=== PATIENT | male | born 1935 | race Caucasian/White ===

== ENCOUNTER 2016-08-23 20:20 | Inpatient (IN) | payer MEDICARE ==
[~2016-08-23] VITALS: Ht 177.8 cm; Wt 68.5 kg
--- NOTE | 2016-08-23 11:55 | NUR ---
PT RECEIVED FROM ER VIA [employer]. PT USES CANE TO AMBULATE. PT IS AWAKE AND ABLE TO MAKE NEED KNOWN. AT BEDSIDE. ORIENTED TO ROOM. V/S STABLE. NO SIGNS OF ACUTE DISTRESS. NO COMPLAINTS OF PAIN. SAFETY MEASURE INITIATED. FALL PRECAUTIONS IMPLEMENTED. CALL LIGHT WITHIN REACH. WILL CONTINUE TO MONITOR. Addendum: 08/24/16 at 0401 by JEN KING RN PLEASE DISREGARD ABOVE NOTES. WRONG TIME ENTERED.
[~2016-08-23 20:20] MED LIST: CARV12.52 PO; DABI75CA3 PO; LISI-603 PO; TRAZ-144 PO; VENL150C58 PO
--- NOTE | 2016-08-23 21:00 | NUR ---
PATIENT WALKED INTO ER C/O GENARALIZED WEAKNESS FOR ABOUT 1 WEEK WITH MECHANICAL YESTERDAY. ALSO STATES HAD DIFFICULTY SPEAKING AT ABOUT 1930 TONIGHT BUT UPON ARRIVAL SYMPTOMS RESOLVED. DR PANDEY AWARE
--- NOTE | 2016-08-23 21:09 | NUR ---
DR PANDEY INTO EVAL PATIENT
[2016-08-23] MEDS ORDERED: MOME13HF IH (21:12)
[2016-08-23] MEDS ORDERED: CHOL200074 PO (21:12)
[2016-08-23] MEDS ORDERED: IRON PO (21:12)
[2016-08-23] MEDS ORDERED: ALBU8.5H8 IH (21:12)
[2016-08-23] MEDS ORDERED: ASCO-376 PO (21:12)
[2016-08-23] MEDS ORDERED: ATOR20TA PO (21:12)
[2016-08-23] MEDS ORDERED: UBID10CA9 PO (21:12)
[2016-08-23] MEDS ORDERED: MAGN500P33 PO (21:12)
[2016-08-23] MEDS ORDERED: NITR0.4T48 SL (21:12)
[2016-08-23] MEDS ORDERED: ALLO100T PO (21:12)
[2016-08-23] MEDS ORDERED: MONT10TA22 PO (21:12)
[2016-08-23] MEDS ORDERED: VENL150C2 PO (21:12)
[2016-08-23] MEDS ORDERED: OMEG1CAP55 PO (21:12)
[2016-08-23] MEDS ORDERED: IV NORMAL SALINE 500 ML BAG IV ONE (21:30)
[2016-08-23 21:34] LABS: BASOPHILS % (AUTO) 0.4 % (0.0-2.0); EOSINOPHILS # (AUTO) 0.6 K/uL (0.0-0.7); EOSINOPHILS % (AUTO) 7.5 % (0.0-7.0); HEMOGLOBIN 11.6 G/DL (14.0-18.0); LYMPHOCYTES # (AUTO) 1.2 K/UL (0.8-4.8); LYMPHOCYTES % (AUTO) 14.1 % (20.5-51.5); MEAN CORPUSCULAR HEMOGLOBIN 29.6 UUG (27.0-31.0); MEAN CORPUSCULAR HGB CONC 34 g/dL (32.0-37.0); MEAN CORPUSCULAR VOLUME 86.9 FL (82.0-92.0); MONOCYTES # (AUTO) 0.8 K/UL (0.1-1.30); MONOCYTES % (AUTO) 9.4 % (0.0-11.0); NEUTROPHILS # (AUTO) 5.6 K/UL (1.8-8.9); NEUTROPHILS % (AUTO) 68.6 % (38.5-71.5); PLATELET COUNT (AUTO) 164 K/UL (150-450); RED BLOOD CELL COUNT(AUTO) 3.91 MIL/UL (4.7-6.1); WHITE BLOOD COUNT (AUTO) 8.2 K/UL (4.0-11.2)
[2016-08-23 21:40] LABS: CARBON DIOXIDE 31 mmol/L (21-32); CHLORIDE 103 mmol/L (98-107); GLUCOSE 110 mg/dL (74-106); UREA NITROGEN, BLOOD 63 mg/dL (7-18)
[2016-08-23 21:45] LABS: ALANINE AMINOTRANSFERASE 14 U/L (16-63); ALKALINE PHOSPHATASE 92 U/L (50-136); ASPARTATE AMINOTRANSFERASE 21 U/L (15-37); BILIRUBIN,DIRECT 0.1 mg/dL (0.0-0.2); BILIRUBIN,TOTAL 0.3 mg/dL (0.2-1.0)
[2016-08-23 22:58] LABS: *BILIRUBIN,URIN NEGATIVE (NEGATIVE); *BLOOD, URINE Trace-lysed (NEGATIVE); *CLARITY,URINE CLEAR (CLEAR); *COLOR,URINE YELLOW (YELLOW); *KETONES,URINE NEGATIVE (NEGATIVE); *PROTEIN,URINE TRACE (NEGATIVE); *UROBILINOGEN,URINE 0.2 E.U./dl (NORMAL); LEUKOCYTE ESTERASE ,URINE NEGATIVE (NEGATIVE); NITRITE, URINE NEGATIVE (NEGATIVE); UGLUCOSE NEGATIVE (NEGATIVE)
[2016-08-23 23:07] LABS: BACTERIA,URINE FEW /HPF (NONE SEEN); RBC,URINE 0-3 /HPF (0-3); SQUAMOUS EPITHELIAL CELL,UR FEW /HPF (NONE SEEN); WBC,URINE 0-3 /HPF (0-3)
--- NOTE | 2016-08-23 23:55 | NUR ---
PT RECEIVED FROM ER VIA GURNEY. PT USES CANE TO AMBULATE. PT IS AWAKE AND ABLE TO MAKE NEED KNOWN. AT BEDSIDE. ORIENTED TO ROOM. V/S STABLE. NO SIGNS OF ACUTE DISTRESS. NO COMPLAINTS OF PAIN. SAFETY MEASURE INITIATED. FALL PRECAUTIONS IMPLEMENTED. CALL LIGHT WITHIN REACH. WILL CONTINUE TO MONITOR.
[2016-08-24] VITALS: BP 184/95
--- NOTE | 2016-08-24 00:01 | NUR ---
TRANSFERED TO TELE 2ND FLOOR VIA [facility]
[2016-08-24] MEDS ORDERED: NITROGLYCERIN 0.4 MG/TAB BOTTLE SL PRN (00:15)
[2016-08-24] MEDS ORDERED: ACETAMINOPHEN 325 MG TABLET PO PRN (00:15)
[2016-08-24] MEDS ORDERED: ALBUTEROL SULFATE 2.5 MG/3 ML NEBU NEB PRN (00:15)
[2016-08-24] MEDS ORDERED: MORPHINE SULFATE 2 MG/1 ML DISP.SYRIN IV PRN (00:15)
[2016-08-24] MEDS ORDERED: ONDANSETRON 4 MG/2 ML VIAL IV PRN (00:15)
[2016-08-24] MEDS ORDERED: IPRATROPIUM BROMIDE 0.5 MG/2.5 ML NEBU NEB PRN (00:15)
[2016-08-24] MEDS ORDERED: IV 1/2NS 1000 ML 1,000 ML IV PRN (00:15)
[2016-08-24 04:28] VITALS: BP 186/85
[2016-08-24 06:36] LABS: BASOPHILS % (AUTO) 0.4 % (0.0-2.0); EOSINOPHILS # (AUTO) 0.7 K/uL (0.0-0.7); EOSINOPHILS % (AUTO) 7.2 % (0.0-7.0); HEMATOCRIT 35.5 % (40-50); HEMOGLOBIN 11.9 G/DL (14.0-18.0); LYMPHOCYTES # (AUTO) 1.7 K/UL (0.8-4.8); MEAN CORPUSCULAR HEMOGLOBIN 29.5 UUG (27.0-31.0); MEAN CORPUSCULAR HGB CONC 34 g/dL (32.0-37.0); MEAN CORPUSCULAR VOLUME 87.7 FL (82.0-92.0); MONOCYTES % (AUTO) 10.8 % (0.0-11.0); NEUTROPHILS # (AUTO) 5.8 K/UL (1.8-8.9); NEUTROPHILS % (AUTO) 63.6 % (38.5-71.5); PLATELET COUNT (AUTO) 153 K/UL (150-450); RED BLOOD CELL COUNT(AUTO) 4.05 MIL/UL (4.7-6.1); WHITE BLOOD COUNT (AUTO) 9.2 K/UL (4.0-11.2)
[2016-08-24 06:43] LABS: THYROID STIMULATING HORMONE 2.224 mIU/mL (0.358-3.740)
--- NOTE | 2016-08-24 06:51 | NUR ---
END OF SHIFT NOTES. PT ASLEEP INTERMITTENTLY THROUGHOUT SHIFT. V/S STABLE. NO SIGNS OF ACUTE DISTRESS. IVF RUNNING. PT IS V-PACED AT 70 ON THE MONITOR. FALL PRECAUTIONS MAINTAINED. PT FREE FROM INJURY. NEEDS ATTENDED. SAFETY MAINTAIN. CALL LIGHT WITHIN REACH.
[2016-08-24 07:23] LABS: EOSINOPHILS % (MANUAL) 8 % (0-8); LYMPHOCYTES % (MANUAL) 22 % (20-40); MONOCYTES % (MANUAL) 7 % (2-10); NEUTROPHILS % (MANUAL) 63 % (42-75)
[2016-08-24 07:51] LABS: ALANINE AMINOTRANSFERASE 15 U/L (16-63); ALKALINE PHOSPHATASE 92 U/L (50-136); ASPARTATE AMINOTRANSFERASE 20 U/L (15-37); BILIRUBIN,TOTAL 0.4 mg/dL (0.2-1.0); CARBON DIOXIDE 29 mmol/L (21-32); CHLORIDE 106 mmol/L (98-107); CHOLESTEROL 137 mg/dL (<200); CREATININE 1.9 mg/dL (0.6-1.3); GLUCOSE 88 mg/dL (74-106); HDL CHOLESTEROL 58 mg/dL (40-60); MAGNESIUM 1.9 mg/dL (1.8-2.4); POTASSIUM 3.8 mmol/L (3.5-5.1); TRIGLYCERIDES 44 MG/DL (30-150); UREA NITROGEN, BLOOD 56 mg/dL (7-18)
[2016-08-24] MEDS: PANTOPRAZOLE SODIUM 40 MG TABLET.DR PO SCH (08:15)
[2016-08-24] MEDS: ASCORBIC ACID 500 MG TABLET PO SCH (08:15)
[2016-08-24] MEDS: CHOLECALCIFEROL 1,000 UNIT TABLET PO SCH (08:15)
[2016-08-24] MEDS: VENLAFAXINE XR 150 MG CAP.SR.24H PO SCH (08:16)
[2016-08-24] MEDS: MONTELUKAST SODIUM 10 MG TABLET PO SCH (08:25)
[2016-08-24] MEDS: CARVEDILOL 12.5 MG TABLET PO SCH ×2 (08:26→17:03)
[2016-08-24] MEDS: FLUTICASONE/SALMETEROL 250/50 INHALER INH SCH ×3 (09:00→20:43)
[2016-08-24] MEDS ORDERED: ASCORBIC ACID 500 MG PO SCH (09:00)
[2016-08-24] MEDS ORDERED: DABIGATRAN ETEXILATE MESYLATE 75 MG CAPSULE PO SCH (09:00)
--- NOTE | 2016-08-24 09:30 | NUR ---
CALLED AND SPOKE WITH DR BLOOD AND INQUIRED IF PATIENT NEEDED ASPIRIN DUE TO HIS DX OF TIA AND HE STATED NO AT THIS TIME WILL EVALUATE THE PATIENT LATER AND WILL THEN DECIDE.
[2016-08-24 11:04] VITALS: BP 137/68
--- NOTE | 2016-08-24 11:24 | NUR ---
PATIENT SEEN AND EXAMINED BY DR YEAGER WITH NEW ORDERS AND NOTED.
--- NOTE | 2016-08-24 12:10 | NUR ---
NEW ORDERS NOTED TO STOP IVF AT THIS TIME.
[2016-08-24 15:36] VITALS: BP 155/80
--- NOTE | 2016-08-24 16:00 | NUR ---
PATIENT SEEN BY DR VARGAS AND DR BANKS WITH NEW ORDERS AND NOTED.ULTRA SOUND OF THE KIDNEY COMPLETED ORDERED WITH NO RESULTS AT THIS TIME.
[2016-08-24] MEDS: PRADAXA 75 MG PO SCH (17:03)
--- NOTE | 2016-08-24 17:15 | NUR ---
DR FRANCO BLOOD HERE SEEN PATIENT AND PROVIDED PATIENT AND HIS WHO IS AT THE BEDSIDE DETAILS OF PLAN OF CARE AND THE DISEASE PROCESS.PATIENTS EXPRESSED UNDERSTANDING.
[2016-08-24 20:00] VITALS: BP 156/74
--- NOTE | 2016-08-24 20:07 | NUR ---
Awake & aloert, no SOB denioes chest p0ain. Assisted to the bathroom, unsteady gait noted. Instructed to use the walker. Patient voided, urine specimen sent to the lab.
[2016-08-24] MEDS: TRAZODONE 50 MG TABLET PO SCH (20:43)
[2016-08-24] MEDS: DOCUSATE SODIUM 250 MG CAPSULE PO SCH (20:43)
[2016-08-24] MEDS: ATORVASTATIN 20 MG TABLET PO SCH (20:43)
[2016-08-24 21:03] LABS: *BILIRUBIN,URIN NEGATIVE (NEGATIVE); *BLOOD, URINE NEGATIVE (NEGATIVE); *CLARITY,URINE CLEAR (CLEAR); *COLOR,URINE YELLOW (YELLOW); *KETONES,URINE NEGATIVE (NEGATIVE); *PROTEIN,URINE 1+ (NEGATIVE); *UROBILINOGEN,URINE 0.2 E.U./dl (NORMAL); LEUKOCYTE ESTERASE ,URINE NEGATIVE (NEGATIVE); NITRITE, URINE NEGATIVE (NEGATIVE); UGLUCOSE NEGATIVE (NEGATIVE)
[2016-08-24 21:06] LABS: *CREATININE,URINE 78.8 mg/dL (30-125)
[2016-08-24 21:16] LABS: MUCUS,URINE FEW /LPF (0-FEW); RBC,URINE 0-3 /HPF (0-3); WBC,URINE NONE SEEN /HPF (0-3)
[2016-08-25] VITALS: BP 155/72
--- NOTE | 2016-08-25 | NUR ---
Patient awake, disoriented to place & wishes to go home. Re-orientation provided, fall precaution observed. V-paced on the monitor.
--- NOTE | 2016-08-25 03:30 | NUR ---
Patient standing in the doorway, unsteady gait noted. Stated he needs to go home because he has knee discomfort. residential monitor disconnected, patient refusing to place it back. Confused & agitated. Fall precaution observed, advised to just sit on a chair.
--- NOTE | 2016-08-25 04:20 | NUR ---
Patient finally agreed to just sit on his chair. Morphine 2mg IVP administered. Patient's arms on his chest, still refusing to re-connect on a Tele box.
--- NOTE | 2016-08-25 04:41 | NUR ---
Tele box leads applied on his back - V-pacing on the monitor. No signs of distress.
--- NOTE | 2016-08-25 04:50 | NUR ---
Patient still in chair, calmer at this time watching TV.
[2016-08-25 05:30] VITALS: BP 150/82
[2016-08-25] MEDS: PANTOPRAZOLE SODIUM 40 MG TABLET.DR PO SCH (05:48)
[2016-08-25 06:53] LABS: BASOPHILS % (AUTO) 0.3 % (0.0-2.0); EOSINOPHILS # (AUTO) 0.5 K/uL (0.0-0.7); EOSINOPHILS % (AUTO) 6.7 % (0.0-7.0); HEMATOCRIT 34.6 % (40-50); HEMOGLOBIN 11.7 G/DL (14.0-18.0); LYMPHOCYTES # (AUTO) 1.4 K/UL (0.8-4.8); LYMPHOCYTES % (AUTO) 17.6 % (20.5-51.5); MEAN CORPUSCULAR HGB CONC 34 g/dL (32.0-37.0); MEAN CORPUSCULAR VOLUME 88.9 FL (82.0-92.0); MONOCYTES # (AUTO) 0.9 K/UL (0.1-1.30); MONOCYTES % (AUTO) 10.6 % (0.0-11.0); NEUTROPHILS # (AUTO) 5.4 K/UL (1.8-8.9); NEUTROPHILS % (AUTO) 64.8 % (38.5-71.5); PLATELET COUNT (AUTO) 157 K/UL (150-450); RED BLOOD CELL COUNT(AUTO) 3.89 MIL/UL (4.7-6.1); WHITE BLOOD COUNT (AUTO) 8.2 K/UL (4.0-11.2)
[2016-08-25 07:01] LABS: ALANINE AMINOTRANSFERASE 12 U/L (16-63); ALKALINE PHOSPHATASE 88 U/L (50-136); ASPARTATE AMINOTRANSFERASE 20 U/L (15-37); BILIRUBIN,TOTAL 0.4 mg/dL (0.2-1.0); CARBON DIOXIDE 31 mmol/L (21-32); CHLORIDE 106 mmol/L (98-107); CREATINE KINASE, TOTAL 92 U/L (39-308); CREATININE 2.2 mg/dL (0.6-1.3); GLUCOSE 95 mg/dL (74-106); MAGNESIUM 2.2 mg/dL (1.8-2.4); PHOSPHOROUS 3.3 mg/dL (2.5-4.9); POTASSIUM 4.1 mmol/L (3.5-5.1); TOTAL PROTEIN, SERUM 7.1 g/dL (6.4-8.2); UREA NITROGEN, BLOOD 55 mg/dL (7-18)
[2016-08-25] MEDS: FLUTICASONE/SALMETEROL 250/50 INHALER INH SCH ×2 (08:58→20:42)
[2016-08-25] MEDS: CARVEDILOL 12.5 MG TABLET PO SCH ×2 (08:59→20:43)
[2016-08-25] MEDS: CHOLECALCIFEROL 1,000 UNIT TABLET PO SCH (08:59)
[2016-08-25] MEDS ORDERED: LISINOPRIL 20 MG TABLET PO SCH ×2 (09:00)
[2016-08-25] MEDS: ASCORBIC ACID 500 MG TABLET PO SCH (09:00)
[2016-08-25] MEDS: MONTELUKAST SODIUM 10 MG TABLET PO SCH (09:00)
[2016-08-25] MEDS: VENLAFAXINE XR 150 MG CAP.SR.24H PO SCH (09:00)
[2016-08-25] MEDS: PRADAXA 75 MG PO SCH ×2 (09:02→16:06)
[2016-08-25] MEDS: ASPIRIN 81 MG TAB.CHEW PO SCH (09:04)
[2016-08-25] MEDS ORDERED: CARVEDILOL 12.5 MG TABLET PO ONE (11:20)
[2016-08-25] MEDS ORDERED: hydrALAZINE HCL 25 MG TABLET PO PRN (11:30)
[2016-08-25 12:18] VITALS: BP 164/80
[2016-08-25 12:21] VITALS: BP 164/80
[2016-08-25] MEDS: AMLODIPINE 5 MG TABLET PO SCH (12:45)
[2016-08-25 15:41] VITALS: BP 144/81
--- NOTE | 2016-08-25 19:00 | NUR ---
Bedside reporting with Candi. Patient sitting at the edge of bed eating. at bedside. Denies any pain/discomforts at this time. Safety measures and fall precaution maintained. Continue care as planned.
--- NOTE | 2016-08-25 19:33 | NUR ---
PT IS LAYING IN BED COMFORTABLY. NO PAIN NOTED. NO S/S OF RESPIRATORY DISTRESS NOTED. IV INTACT/PATENT. ALL SAFETY NEEDS ARE MET.
[2016-08-25 20:00] VITALS: BP 127/57
--- NOTE | 2016-08-25 20:00 | NUR ---
Lying on bed. Stroke protocol performed. No Neuro deficit noted at this time. VS stable.
[2016-08-25] MEDS: DOCUSATE SODIUM 250 MG CAPSULE PO SCH (20:42)
[2016-08-25] MEDS: ATORVASTATIN 20 MG TABLET PO SCH (20:42)
[2016-08-25] MEDS: TRAZODONE 50 MG TABLET PO SCH (20:42)
--- NOTE | 2016-08-26 04:44 | NUR ---
BP 183/93, Apresoline 25 mg given as needed and ordered. Will monitor.
[2016-08-26 05:30] VITALS: BP 183/93
[2016-08-26] MEDS: PANTOPRAZOLE SODIUM 40 MG TABLET.DR PO SCH (06:04)
--- NOTE | 2016-08-26 06:26 | NUR ---
BP rechecked 182/90 LA. Pt denies any s/s of hypertension. Continue to monitor. Will endorse to oncoming nurse.
[2016-08-26 06:49] LABS: BASOPHILS % (AUTO) 0.4 % (0.0-2.0); EOSINOPHILS # (AUTO) 0.5 K/uL (0.0-0.7); EOSINOPHILS % (AUTO) 6.4 % (0.0-7.0); HEMOGLOBIN 11.6 G/DL (14.0-18.0); LYMPHOCYTES # (AUTO) 1.4 K/UL (0.8-4.8); LYMPHOCYTES % (AUTO) 17.2 % (20.5-51.5); MEAN CORPUSCULAR HEMOGLOBIN 28.6 UUG (27.0-31.0); MEAN CORPUSCULAR HGB CONC 32 g/dL (32.0-37.0); MEAN CORPUSCULAR VOLUME 88.7 FL (82.0-92.0); MONOCYTES # (AUTO) 0.7 K/UL (0.1-1.30); MONOCYTES % (AUTO) 9.1 % (0.0-11.0); NEUTROPHILS # (AUTO) 5.5 K/UL (1.8-8.9); NEUTROPHILS % (AUTO) 66.9 % (38.5-71.5); PLATELET COUNT (AUTO) 146 K/UL (150-450); RED BLOOD CELL COUNT(AUTO) 4.06 MIL/UL (4.7-6.1); WHITE BLOOD COUNT (AUTO) 8.1 K/UL (4.0-11.2)
[2016-08-26 07:11] LABS: ALANINE AMINOTRANSFERASE 16 U/L (16-63); ALKALINE PHOSPHATASE 90 U/L (50-136); ASPARTATE AMINOTRANSFERASE 18 U/L (15-37); BILIRUBIN,TOTAL 0.6 mg/dL (0.2-1.0); CARBON DIOXIDE 30 mmol/L (21-32); CHLORIDE 108 mmol/L (98-107); GLUCOSE 85 mg/dL (74-106); MAGNESIUM 2.1 mg/dL (1.8-2.4); PHOSPHOROUS 3.5 mg/dL (2.5-4.9); POTASSIUM 4.1 mmol/L (3.5-5.1); UREA NITROGEN, BLOOD 49 mg/dL (7-18)
[2016-08-26] MEDS: PRADAXA 75 MG PO SCH (08:56)
[2016-08-26] MEDS: ASCORBIC ACID 500 MG TABLET PO SCH (09:03)
[2016-08-26] MEDS: VENLAFAXINE XR 150 MG CAP.SR.24H PO SCH (09:03)
[2016-08-26] MEDS: CARVEDILOL 12.5 MG TABLET PO SCH (09:03)
[2016-08-26] MEDS: MONTELUKAST SODIUM 10 MG TABLET PO SCH (09:03)
[2016-08-26] MEDS: ASPIRIN 81 MG TAB.CHEW PO SCH (09:03)
[2016-08-26] MEDS: AMLODIPINE 5 MG TABLET PO SCH (09:03)
[2016-08-26] MEDS: CHOLECALCIFEROL 1,000 UNIT TABLET PO SCH (09:03)
[2016-08-26] MEDS: FLUTICASONE/SALMETEROL 250/50 INHALER INH SCH (09:04)
--- NOTE | 2016-08-26 09:34 | NUR ---
Discharge Plan: Once patient is medically cleared patient will be discharged to [facility]. Noy Galeano, the patients [[phone]] is agreeable with the discharge plan.
[2016-08-26 12:08] VITALS: BP 145/70
[2016-08-26] MEDS ORDERED: DOCU250C14 PO (12:12)
[2016-08-26] MEDS ORDERED: AMLO5TAB2 PO (12:12)
[2016-08-26] MEDS ORDERED: ACET325T53 PO (12:12)
[2016-08-26] MEDS ORDERED: FLUT1DIS28 INH (12:12)
[2016-08-26] MEDS ORDERED: HYDR25TA86 PO (12:12)
[2016-08-26] MEDS ORDERED: CARV12.52 PO (12:12)
[2016-08-26] MEDS ORDERED: ALBU2.5V7 NEB (12:12)
[2016-08-26] MEDS ORDERED: PANT40TA2 PO (12:12)
--- NOTE | 2016-08-26 16:00 | NUR ---
DISCHARGE NOTE: PT IS READY TO BE TRANSFERRED. NO S/S OF RESPIRATORY DISTRESS NOTED. NO PAIN REPORTED/NOTED. REPORT IS GIVEN TO SHAWANDA WARE AT REHAB UNIT. BELONGINGS ARE CHECKED. IV IS REMOVED. PT IS CALM AND COOPERATIVE. PT IS TRANSFERRED, IS BY THE BEDSIDE.
[2016-08-26] MEDS ORDERED: AMLODIPINE 5 MG TABLET PO SCH (21:00)
[2016-08-28 08:09] LABS: A/G RATIO 1.5 (0.7-1.7); ALBUMIN 3.9 g/dL (2.9-4.4); ALPHA-1-GLOBULIN 0.2 g/dL (0.0-0.4); ALPHA-2-GLOBULIN 0.6 g/dL (0.4-1.0); BETA GLOBULIN 0.8 g/dL (0.7-1.3); GLOBULIN, TOTAL 2.6 g/dL (2.2-3.9); M-SPIKE Not Observed g/dL (Not Observed)
[2016-09-07] MEDS ORDERED: FERROUS SULFATE PO (11:34)
[2016-09-07] MEDS ORDERED: CLON1PAT TD (11:34)
== END 2016-08-26 15:30 | DRG 69 ==
LOC: ER 20:23 → TELE 23:47 → MED 08-25 12:54
PROVIDERS: ADMIT Internal Medicine; ATTEND Internal Medicine
DX: G45.9 Transient cerebral ischemic attack, unspecified (principal); G93.41 Metabolic encephalopathy; N17.0 Acute kidney failure with tubular necrosis; I50.33 Acute on chronic diastolic (congestive) heart failure; I13.0 Hypertensive heart and chronic kidney disease with heart failure and stage 1 through stage 4 chronic kidney disease, or unspecified chronic kidney disease; G11.9 Hereditary ataxia, unspecified; I11.0 Hypertensive heart disease with heart failure; I50.9 Heart failure, unspecified; R29.6 Repeated falls; E86.0 Dehydration; J45.909 Unspecified asthma, uncomplicated; Z86.73 Personal history of transient ischemic attack (TIA), and cerebral infarction without residual deficits; Z95.1 Presence of aortocoronary bypass graft; I25.10 Atherosclerotic heart disease of native coronary artery without angina pectoris; Z95.810 Presence of automatic (implantable) cardiac defibrillator; Z95.5 Presence of coronary angioplasty implant and graft; Z82.49 Family history of ischemic heart disease and other diseases of the circulatory system; Z79.01 Long term (current) use of anticoagulants; H26.9 Unspecified cataract; R32 Unspecified urinary incontinence; M48.00 Spinal stenosis, site unspecified; Z88.8 Allergy status to other drugs, medicaments and biological substances; E78.5 Hyperlipidemia, unspecified; D64.9 Anemia, unspecified; Z74.09 Other reduced mobility; Z87.891 Personal history of nicotine dependence; N18.9 Chronic kidney disease, unspecified; I35.0 Nonrheumatic aortic (valve) stenosis; J44.9 Chronic obstructive pulmonary disease, unspecified; I48.0 Paroxysmal atrial fibrillation; M10.9 Gout, unspecified; F01.50 Vascular dementia, unspecified severity, without behavioral disturbance, psychotic disturbance, mood disturbance, and anxiety
CPT/HCPCS: 36415; 70030-TC; 70450; 71010; 76770; 83735; 83970; 84100; 84155; 84156; 84165; 84300; 84443; 85025; 85730; 92523; 93005; 93307; 93880; 97116; 97161; 97165; 97530; 97535; A4663; J2270; J3490; J7040

== ENCOUNTER 2016-08-26 12:51 | Inpatient (IN) | payer MEDICARE ==
[~2016-08-26] VITALS: Ht 177.8 cm; Wt 68.9 kg
[~2016-08-26 12:51] MED LIST changes: +ACET325T53 PO; +ALBU2.5V7 NEB; +ALBU8.5H8 IH; +ALLO100T PO; +AMLO5TAB2 PO; +ASCO-376 PO; +ATOR20TA PO; +CHOL200074 PO; +DOCU250C14 PO; +FLUT1DIS28 INH; +HYDR25TA86 PO; +IRON PO; +MAGN500P33 PO; +MOME13HF IH; +MONT10TA22 PO; +NITR0.4T48 SL; +OMEG1CAP55 PO; +PANT40TA2 PO; +UBID10CA9 PO; +VENL150C2 PO; -VENL150C58 PO
[2016-08-26] MEDS ORDERED: ALBUTEROL SULFATE 2.5 MG/3 ML NEBU NEB PRN (17:15)
[2016-08-26] MEDS ORDERED: NITROGLYCERIN 0.4 MG/TAB BOTTLE SL PRN (17:15)
[2016-08-26] MEDS ORDERED: ACETAMINOPHEN 325 MG TABLET PO PRN (17:15)
[2016-08-26] MEDS ORDERED: hydrALAZINE HCL 25 MG TABLET PO PRN (17:15)
[2016-08-26] MEDS: AMLODIPINE 5 MG TABLET PO SCH (18:25)
[2016-08-26] MEDS: CARVEDILOL 12.5 MG TABLET PO SCH (18:25)
[2016-08-26] MEDS ORDERED: IPRATROPIUM BROMIDE 0.5 MG/2.5 ML NEBU NEB PRN (18:30)
--- NOTE | 2016-08-26 19:30 | NUR ---
1600 [facility] 80[facility] Patient is alert, verbally responsive, coherent, afebrile, able to make needs known, not in any form of acute distress. Able to move all extremities without difficulty. No facial assymetry, and no slurring of speech. He denies any pain or discomfort. Routine admission care done. Oriented to staff, room and use of devices with verbalized understanding. Assisted to his needs. Noy () at bedside. Fall precaution observed. Reminded to use call light for assistance. Call light placed within reach. notified Dr. Jovel regarding admission. Informed Dr. Howe regarding admission and MD reconciled medications. MRSA screening done. En
[2016-08-26 20:10] VITALS: BP 127/61
[2016-08-26] MEDS ORDERED: DOCUSATE SODIUM 250 MG CAPSULE PO SCH (21:00)
[2016-08-26] MEDS: FLUTICASONE/SALMETEROL 250/50 INHALER INH SCH (21:31)
[2016-08-26] MEDS: ATORVASTATIN 20 MG TABLET PO SCH (21:31)
[2016-08-26] MEDS: TRAZODONE 50 MG TABLET PO SCH (21:32)
[2016-08-26] MEDS: DOCUSATE SODIUM 100 MG CAPSULE PO SCH (21:33)
[2016-08-26] MEDS: PATIENT MAY USE OWN MED- MD OK PO SCH (21:41)
[2016-08-27] MEDS: PANTOPRAZOLE SODIUM 40 MG TABLET.DR PO SCH (06:00)
[2016-08-27] MEDS: AMLODIPINE 5 MG TABLET PO SCH ×2 (06:06→17:00)
[2016-08-27] MEDS: CARVEDILOL 12.5 MG TABLET PO SCH ×2 (06:08→17:00)
[2016-08-27 08:14] LABS: BASOPHILS % (AUTO) 0.4 % (0.0-2.0); EOSINOPHILS # (AUTO) 0.4 K/uL (0.0-0.7); EOSINOPHILS % (AUTO) 4.4 % (0.0-7.0); HEMATOCRIT 33.8 % (40-50); HEMOGLOBIN 11.3 G/DL (14.0-18.0); LYMPHOCYTES # (AUTO) 0.9 K/UL (0.8-4.8); LYMPHOCYTES % (AUTO) 11.3 % (20.5-51.5); MEAN CORPUSCULAR HEMOGLOBIN 29.5 UUG (27.0-31.0); MEAN CORPUSCULAR HGB CONC 34 g/dL (32.0-37.0); MONOCYTES # (AUTO) 0.8 K/UL (0.1-1.30); MONOCYTES % (AUTO) 10.2 % (0.0-11.0); NEUTROPHILS # (AUTO) 5.9 K/UL (1.8-8.9); NEUTROPHILS % (AUTO) 73.7 % (38.5-71.5); PLATELET COUNT (AUTO) 139 K/UL (150-450); RED BLOOD CELL COUNT(AUTO) 3.84 MIL/UL (4.7-6.1)
[2016-08-27 08:20] VITALS: BP 150/68
[2016-08-27 08:25] LABS: CARBON DIOXIDE 30 mmol/L (21-32); CHLORIDE 107 mmol/L (98-107); CHOLESTEROL 124 mg/dL (<200); CREATININE 1.9 mg/dL (0.6-1.3); GLUCOSE 88 mg/dL (74-106); HDL CHOLESTEROL 55 mg/dL (40-60); MAGNESIUM 1.9 mg/dL (1.8-2.4); TRIGLYCERIDES 48 MG/DL (30-150); UREA NITROGEN, BLOOD 45 mg/dL (7-18)
[2016-08-27] MEDS: FLUTICASONE/SALMETEROL 250/50 INHALER INH SCH ×2 (08:42→21:37)
[2016-08-27] MEDS: ASCORBIC ACID 500 MG TABLET PO SCH (08:43)
[2016-08-27] MEDS: CHOLECALCIFEROL 1,000 UNIT TABLET PO SCH (08:43)
[2016-08-27] MEDS: ASPIRIN 81 MG TAB.CHEW PO SCH (08:43)
[2016-08-27] MEDS: ALLOPURINOL 100 MG TABLET PO SCH (08:43)
[2016-08-27] MEDS: MONTELUKAST SODIUM 10 MG TABLET PO SCH (08:44)
[2016-08-27] MEDS: FERROUS SULFATE SLOW RELEASE 45 MG (ELEMENTAL) TABEC PO SCH (08:44)
[2016-08-27] MEDS: VENLAFAXINE XR 150 MG CAP.SR.24H PO SCH (08:44)
[2016-08-27] MEDS ORDERED: DABIGATRAN ETEXILATE MESYLATE 75 MG CAPSULE PO SCH (09:00)
[2016-08-27] MEDS ORDERED: ASCORBIC ACID 500 MG PO SCH (09:00)
[2016-08-27] MEDS ORDERED: IRON 65 MG PO SCH (09:00)
[2016-08-27] MEDS: PATIENT MAY USE OWN MED- MD OK PO SCH ×2 (09:12→21:38)
--- NOTE | 2016-08-27 10:17 | NUR ---
PT SEEN DURING ROUNDING. PT HAS NO SIGNS OF ACUTE DISTRESS. PRESSING MACHINE OPERATOR NURSE COMMENTS THAT THERE IS SOME CONFUSION AND THAT HE IS A FALL RISK BECAUSE HE GETS UP ON HIS OWN. PT SEEN BY OT. PT IS ABLE TO STAND WITH ASSIST. OT COMMENTS THAT HE SHOULD HAVE A WALKER. PT SHOWS NO SIGNS OF IMPENDING STROKE. WILL CONTINUE TO MONITOR FOR FALL PRECAUTIONS.
--- NOTE | 2016-08-27 14:18 | NUR ---
NIH AND STROKE ASSESSMENT DONE. NO SIGNS NOTED. FAMILY WENT BY AND DROPPED OFF PRADAXA. SEEN BY ACID TENDER. ORDERED BMP CBC PHOS AND MAG. WILL CONTINUE TO MONITOR.
--- NOTE | 2016-08-27 17:43 | NUR ---
pt becoming more aggresive. dr pugh requested psych consult and recommended Haldol IM as needed. " at least until psychiatrist can see him
[2016-08-27 21:19] VITALS: BP 172/79
[2016-08-27] MEDS: TRAZODONE 50 MG TABLET PO SCH (21:36)
[2016-08-27] MEDS: DOCUSATE SODIUM 100 MG CAPSULE PO SCH (21:37)
[2016-08-27] MEDS: ATORVASTATIN 20 MG TABLET PO SCH (21:37)
[2016-08-27] MEDS: QUETIAPINE FUMARATE 25 MG TABLET PO SCH (21:37)
--- NOTE | 2016-08-28 01:27 | NUR ---
pt awake and alert with frequent periods of forgetfulness, disoriented and confusion difficult to re-direct patient at times, constantly climbing out of bed without calling for help. Call light kepted within reach with bed alarm on. Gait unsteady, emotional support and re-assurance and orienting pt frequently done during the night. Pt suspicious and verbalized feeling unsafe and wanting to be independent. Continue to provide above, patient can become easily agitated, angry and uncooperative. Currently HS meds seroguel and trazodone took effect after midnight and pt is quietly sleeping well in no acute distress. Will continue to monitor status.
[2016-08-28] MEDS: PANTOPRAZOLE SODIUM 40 MG TABLET.DR PO SCH (07:00)
[2016-08-28] MEDS: AMLODIPINE 5 MG TABLET PO SCH ×2 (07:03→17:42)
[2016-08-28] MEDS: CARVEDILOL 12.5 MG TABLET PO SCH ×2 (07:03→17:42)
--- NOTE | 2016-08-28 07:17 | NUR ---
Patient received from components engineer, resting comfortably in bed, sleeping. Arousable to name and touch, respirations even and unlabored, RR 18. Attempted to orient to room and RN for the day, appeared to fall back asleep without acknowledging. Seroquel and Trazodone given per components engineer. Bed alarm turned on, call light within reach. Safety and fall precautions maintained. Will continue to monitor, this RN staying close to room.
[2016-08-28 07:35] LABS: CARBON DIOXIDE 31 mmol/L (21-32); CHLORIDE 107 mmol/L (98-107); GLUCOSE 80 mg/dL (74-106); MAGNESIUM 1.9 mg/dL (1.8-2.4); PHOSPHOROUS 3.3 mg/dL (2.5-4.9); POTASSIUM 3.6 mmol/L (3.5-5.1); UREA NITROGEN, BLOOD 43 mg/dL (7-18)
[2016-08-28 08:17] VITALS: BP 102/83
[2016-08-28 09:08] LABS: BASOPHILS % (AUTO) 0.3 % (0.0-2.0); EOSINOPHILS # (AUTO) 0.4 K/uL (0.0-0.7); EOSINOPHILS % (AUTO) 5.8 % (0.0-7.0); HEMATOCRIT 33.7 % (40-50); HEMOGLOBIN 11.5 G/DL (14.0-18.0); LYMPHOCYTES # (AUTO) 1.3 K/UL (0.8-4.8); LYMPHOCYTES % (AUTO) 18.2 % (20.5-51.5); MEAN CORPUSCULAR HEMOGLOBIN 29.8 UUG (27.0-31.0); MEAN CORPUSCULAR HGB CONC 34 g/dL (32.0-37.0); MEAN CORPUSCULAR VOLUME 87.5 FL (82.0-92.0); MONOCYTES % (AUTO) 14.5 % (0.0-11.0); NEUTROPHILS # (AUTO) 4.4 K/UL (1.8-8.9); NEUTROPHILS % (AUTO) 61.2 % (38.5-71.5); PLATELET COUNT (AUTO) 141 K/UL (150-450); RED BLOOD CELL COUNT(AUTO) 3.85 MIL/UL (4.7-6.1); WHITE BLOOD COUNT (AUTO) 7.1 K/UL (4.0-11.2)
[2016-08-28] MEDS: PATIENT MAY USE OWN MED- MD OK PO SCH ×2 (10:40→20:45)
[2016-08-28] MEDS: FLUTICASONE/SALMETEROL 250/50 INHALER INH SCH ×2 (10:40→20:45)
[2016-08-28] MEDS: ASPIRIN 81 MG TAB.CHEW PO SCH (10:40)
[2016-08-28] MEDS: VENLAFAXINE XR 150 MG CAP.SR.24H PO SCH (10:40)
[2016-08-28] MEDS: CHOLECALCIFEROL 1,000 UNIT TABLET PO SCH (10:41)
[2016-08-28] MEDS: MONTELUKAST SODIUM 10 MG TABLET PO SCH (10:41)
[2016-08-28] MEDS: ALLOPURINOL 100 MG TABLET PO SCH (10:41)
[2016-08-28] MEDS: ASCORBIC ACID 500 MG TABLET PO SCH (10:41)
[2016-08-28] MEDS: FERROUS SULFATE SLOW RELEASE 45 MG (ELEMENTAL) TABEC PO SCH (10:41)
[2016-08-28] MEDS ORDERED: QUETIAPINE FUMARATE 25 MG TABLET PO PRN (12:00)
[2016-08-28] MEDS: QUETIAPINE FUMARATE 25 MG TABLET PO SCH ×2 (13:23→20:46)
--- NOTE | 2016-08-28 19:30 | NUR ---
RECEIVED PATIENT AWAKE, ALERT AND ORIENTED TO NAME AND PLACE ONLY. REORIENTED TO TIME AND SITUATION. SOFT, CLEAR VOICE. DOES NOT LIKE TO BE TOUCHED AND WOULD LIKE TO BE INDEPENDENT POSSIBLE. ALLOWED TO DO MUCH HE CAN BY HIMSELF WITHOUT HIM GETTING TOO FRUSTRATED. DOES APPEAR TO GET CALMER WHEN HE IS ALLOWED TO DO THINGS FOR HIMSELF. NO SIGNS OF RESPIRATORY DISTRESS AT THIS TIME.NO C/O PAIN. OOB TO TOILET TO VOID. GAIT SLIGHTLY UNSTEADY BUT REQUIRES AND ONLY WANTS STANDBY ASSIST.CLOSE OBSERVATION WILL BE DONE WITH THIS PATIENT THROUGH THE NIGHT. CALL LIGHT WITHIN REACH AAT
[2016-08-28] MEDS: ATORVASTATIN 20 MG TABLET PO SCH (20:45)
[2016-08-28] MEDS: DOCUSATE SODIUM 100 MG CAPSULE PO SCH (20:45)
[2016-08-28] MEDS: TRAZODONE 50 MG TABLET PO SCH (20:46)
[2016-08-28 21:21] VITALS: BP 161/83
[2016-08-29 05:30] VITALS: BP 178/78
[2016-08-29] MEDS: AMLODIPINE 5 MG TABLET PO SCH ×2 (05:45→18:08)
[2016-08-29] MEDS: CARVEDILOL 12.5 MG TABLET PO SCH ×2 (05:45→18:08)
--- NOTE | 2016-08-29 06:00 | NUR ---
RESTED WELL AFTER HS MEDS WERE GIVEN. AMBULATED TO TOILET X1 WITH CANE, STANDBY ASSIST AND WITH SLIGHTLY UNSTEADY GAIT. OTHERWISE INCONTINENT OF LARGE AMOUNT URINE IN DIAPERS X 2.MEDICATED X 1 FOR HTN WITH SBP ABOVE 150/ APRESOLINE PO PRN GIVEN ORDERED. THIS MORNINGS BP EVEN HIGHER WITH SBP OF 178. BOTH NORVASC AND COREG WERE DUE AT THE TIME AND WERE GIVEN. NO AGITATION EPISODES WERE NOTED THIS SHIFT WITH THE INCREASE IN SEROQUEL YESTERDAY. REORIENTED FREQUENTLY. CALL LIGHT WITHIN REACH AAT. AND BED ALARM ON.IN NAD AT THIS TIME
[2016-08-29] MEDS: PANTOPRAZOLE SODIUM 40 MG TABLET.DR PO SCH (06:02)
[2016-08-29 08:00] VITALS: BP 123/65
[2016-08-29] MEDS: ASPIRIN 81 MG TAB.CHEW PO SCH (09:19)
[2016-08-29] MEDS: FLUTICASONE/SALMETEROL 250/50 INHALER INH SCH ×2 (09:19→21:25)
[2016-08-29] MEDS: ASCORBIC ACID 500 MG TABLET PO SCH (09:20)
[2016-08-29] MEDS: MONTELUKAST SODIUM 10 MG TABLET PO SCH (09:20)
[2016-08-29] MEDS: CHOLECALCIFEROL 1,000 UNIT TABLET PO SCH (09:20)
[2016-08-29] MEDS: VENLAFAXINE XR 150 MG CAP.SR.24H PO SCH (09:20)
[2016-08-29] MEDS: PATIENT MAY USE OWN MED- MD OK PO SCH ×2 (09:20→21:26)
[2016-08-29] MEDS: FERROUS SULFATE SLOW RELEASE 45 MG (ELEMENTAL) TABEC PO SCH (09:20)
[2016-08-29] MEDS: ALLOPURINOL 100 MG TABLET PO SCH (09:21)
--- NOTE | 2016-08-29 11:23 | NUR ---
Watch Crystal Cutter: SW met with patient at bedside to assess for needs and provide support. Upon social worker delinquency prevention interview, pt presented with a flat affect and guarded mood. Per chart, the pt was admitted for previous TIAs, generalized weakness, and frequent falls. 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 Pt was seen by (Psychiatrist) yesterday for combative and aggressive behavior. Per RNAaron the pt is stable today and has been accepting care since psych consult. Per Aaron, the pt has presented with a flat affect since he was admitted. During social worker delinquency prevention interview, pt was cooperative and calm, however responded with minimal information. He appeared depressed and reported he was doing "fine" with acute rehabilitation. Pt stated he has strong social support including his , Noy [phone]. 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 Pt stated his goal is to "get back to where I was before" and "I know it's unrealistic." He appeared to be having a difficult time coping with recent stroke and has a hx of depression. SW acknowledge pt's feelings of loss and encouraged pt to comply with rehab goals in order to succeed goal. SW engaged in active listening during interview to address pt's issues of loss during hospitalization. SW provided supportive counseling to address patients issues of loss related to his recent falls, decline in functioning, and recent stroke. SW will continue to address issues of loss related to recent falls and stroke. SW will provide linkage to resources (stroke support groups, outpatient referrals, etc.) upon discharge.
[2016-08-29] MEDS: QUETIAPINE FUMARATE 25 MG TABLET PO SCH ×2 (14:58→21:28)
--- NOTE | 2016-08-29 19:30 | NUR ---
Received patient sitting up in chair at bedside. Patient is alert and verbally responsive. Able to make needs known. Patient verbalized to me that he wanted to leave and go home. Explained to patient that he still needs to complete this therapy so he can get stronger in order to go home and that I would need to speak with Case management regarding discharge. Strongly verbalized wanting to go home. Dr. Jovel in room and made aware of patient wanting to leave. Dr. Jovel also explained to him that he needed the intensive therapy that is provided here at the hospital. Patient still verbalizing he wanted to leave. I asked him where he would go and he verbalized that he'd go home. I asked who would take care of him and he responded that his would be home by the time he got home. Verbalized to patient that I would call his first and speak with her regarding his situation. Patient agreed. Non combative at this time. Patient is in no acute distress at this time. No SOB. Patient is on room air. Patient gets up and ambulates with quad cane. Reminded patient to use call light and call for help when needed. Urinal at bedside. All needs attended to promptly. Call light within reach. Bed in low position. Will continue to monitor. Addendum: 08/29/16 at 2222 by TRES ARTEAGA RN [id number]: Called Noy and left a message. 2149: Noy called back. Made aware of patient verbalizing that he wanted to leave. Explained to her that I verbalized to him that he needed to stay the night tonight and that he needed the therapy here in order to get stronger. Also made aware that Dr. Jovel also spoke to patient. Noy agreed that patient needs to stay and complete his treatment here and also verbalized that she will be here tomorrow afternoon for a meeting.
[2016-08-29 21:25] VITALS: BP 103/50
[2016-08-29] MEDS: TRAZODONE 50 MG TABLET PO SCH (21:27)
[2016-08-29] MEDS: DOCUSATE SODIUM 100 MG CAPSULE PO SCH (21:27)
[2016-08-29] MEDS: ATORVASTATIN 20 MG TABLET PO SCH (21:28)
[2016-08-30] MEDS: PANTOPRAZOLE SODIUM 40 MG TABLET.DR PO SCH (06:33)
[2016-08-30] MEDS: CARVEDILOL 12.5 MG TABLET PO SCH ×2 (06:36→17:14)
[2016-08-30] MEDS: AMLODIPINE 5 MG TABLET PO SCH ×2 (06:36→17:16)
[2016-08-30 07:05] LABS: BASOPHILS % (AUTO) 0.3 % (0.0-2.0); EOSINOPHILS # (AUTO) 0.5 K/uL (0.0-0.7); HEMATOCRIT 35.5 % (40-50); HEMOGLOBIN 11.9 G/DL (14.0-18.0); LYMPHOCYTES # (AUTO) 1.4 K/UL (0.8-4.8); LYMPHOCYTES % (AUTO) 18.1 % (20.5-51.5); MEAN CORPUSCULAR HEMOGLOBIN 29.2 UUG (27.0-31.0); MEAN CORPUSCULAR HGB CONC 34 g/dL (32.0-37.0); MEAN CORPUSCULAR VOLUME 87.2 FL (82.0-92.0); MONOCYTES % (AUTO) 12.5 % (0.0-11.0); NEUTROPHILS # (AUTO) 4.8 K/UL (1.8-8.9); NEUTROPHILS % (AUTO) 63.1 % (38.5-71.5); PLATELET COUNT (AUTO) 155 K/UL (150-450); RED BLOOD CELL COUNT(AUTO) 4.07 MIL/UL (4.7-6.1); WHITE BLOOD COUNT (AUTO) 7.7 K/UL (4.0-11.2)
[2016-08-30 07:34] LABS: ALANINE AMINOTRANSFERASE 11 U/L (16-63); ALKALINE PHOSPHATASE 88 U/L (50-136); ASPARTATE AMINOTRANSFERASE 15 U/L (15-37); BILIRUBIN,TOTAL 0.4 mg/dL (0.2-1.0); MAGNESIUM 2.2 mg/dL (1.8-2.4); PHOSPHOROUS 3.3 mg/dL (2.5-4.9); TOTAL PROTEIN, SERUM 6.8 g/dL (6.4-8.2)
[2016-08-30 07:57] LABS: CARBON DIOXIDE 30 mmol/L (21-32); CHLORIDE 106 mmol/L (98-107); CREATININE 2.3 mg/dL (0.6-1.3); GLUCOSE 87 mg/dL (74-106); POTASSIUM 4.1 mmol/L (3.5-5.1); UREA NITROGEN, BLOOD 53 mg/dL (7-18)
[2016-08-30 08:00] VITALS: BP 127/70
--- NOTE | 2016-08-30 08:00 | NUR ---
PATIENT IS RESTING QUIETLY IN BED. PATIENT IS ABLE TO TAKE MEDS INDEPENDENTLY. MEAL TRAY IS AT BEDSIDE.
[2016-08-30] MEDS: VENLAFAXINE XR 150 MG CAP.SR.24H PO SCH (08:31)
[2016-08-30] MEDS: MONTELUKAST SODIUM 10 MG TABLET PO SCH (08:31)
[2016-08-30] MEDS: ASPIRIN 81 MG TAB.CHEW PO SCH (08:31)
[2016-08-30] MEDS: FLUTICASONE/SALMETEROL 250/50 INHALER INH SCH ×2 (08:31→20:11)
[2016-08-30] MEDS: PATIENT MAY USE OWN MED- MD OK PO SCH ×2 (08:31→20:09)
[2016-08-30] MEDS: FERROUS SULFATE SLOW RELEASE 45 MG (ELEMENTAL) TABEC PO SCH (08:32)
[2016-08-30] MEDS: CHOLECALCIFEROL 1,000 UNIT TABLET PO SCH (08:32)
[2016-08-30] MEDS: ASCORBIC ACID 500 MG TABLET PO SCH (08:32)
[2016-08-30] MEDS: ALLOPURINOL 100 MG TABLET PO SCH (08:32)
--- NOTE | 2016-08-30 11:01 | NUR ---
CHRISTINA TAYLOR SHOWERED PATIENT IN SHOWER ROOM.
--- NOTE | 2016-08-30 13:22 | NUR ---
PATIENT IS BROUGHT TO THE STATION IN WHEEL CHAIR. PATIENT FOUND STANDING IN ROOM FACING WALL. PATIENT GAIT UNSTEADY. PLACED ON WHEEL CHAIR. PATIENT IS HIGH FALL RISK.
[2016-08-30] MEDS: QUETIAPINE FUMARATE 25 MG TABLET PO SCH (13:49)
--- NOTE | 2016-08-30 14:30 | NUR ---
ROUNDING IN PATIENTS ROOM. PATIENT IS YELLING OUT THAT IT IS TO LOUD. INFORMED PATIENT THAT TRASH BIN CART WAS COMMING AROUND UNIT AND APOLOGIZED FOR INCONVENIENCE. PATIENT IS DEMANDING QUIETNESS, BEING LOUD AND RUDE AND IS CONFUSED STATING IT IS HIS HOUSE AND HE CAN DO WHATEVER HE WANTS, AND TO LEAVE HIS ROOM. ASKED PATIENT IF HE KNEW WHERE HE WAS AND REPLIED THAT HE IS NO BOTHERING TO ANSWER NONSENSE QUESTIONS.
--- NOTE | 2016-08-30 14:36 | NUR ---
IDT MEETING 08/30/16
[2016-08-30 17:00] VITALS: BP 126/69
[2016-08-30] MEDS: DIVALPROEX SPRINKLE 125 MG CAP.SPRINK PO SCH (17:10)
--- NOTE | 2016-08-30 19:30 | NUR ---
Received report from SHAWANDA Jaramillo. Received patient sitting up in bed. Approached in a calm and friendly manner. Patient is alert with episodes of confusion, but able to make needs known. No c/o pain and discomfort. No acute distress. No SOB. Kept clean and dry. All needs attended to promptly. Call light within reach. Will continue to monitor.
[2016-08-30 20:00] VITALS: BP 129/58
[2016-08-30] MEDS: ATORVASTATIN 20 MG TABLET PO SCH (20:08)
[2016-08-30] MEDS: DOCUSATE SODIUM 100 MG CAPSULE PO SCH (20:09)
[2016-08-30] MEDS ORDERED: QUETIAPINE FUMARATE 25 MG TABLET PO SCH (21:00)
[2016-08-31] MEDS: CARVEDILOL 12.5 MG TABLET PO SCH ×2 (05:24→17:27)
[2016-08-31] MEDS: AMLODIPINE 5 MG TABLET PO SCH ×2 (05:25→17:26)
--- NOTE | 2016-08-31 06:00 | NUR ---
Patient is awake and verbally responsive. Able to make needs known. Denies any pain and discomfort. No acute distress. No SOB. All needs attended to promptly. Call light within reach. Will continue to monitor.
[2016-08-31] MEDS: PANTOPRAZOLE SODIUM 40 MG TABLET.DR PO SCH (06:41)
[2016-08-31 07:44] VITALS: BP 126/63
--- NOTE | 2016-08-31 08:15 | NUR ---
Received patient awake in bed. Eating breakfast. Tolerated breakfast well. No complaints of pain/ discomfort. No s/s of distress. Alert and oriented x3. Encouraged patient to call for needs. Call light within reach. Side rails up x2.
[2016-08-31] MEDS: FLUTICASONE/SALMETEROL 250/50 INHALER INH SCH ×2 (08:28→21:47)
[2016-08-31] MEDS: ASPIRIN 81 MG TAB.CHEW PO SCH (08:28)
[2016-08-31] MEDS: DIVALPROEX SPRINKLE 125 MG CAP.SPRINK PO SCH ×2 (08:28→17:26)
[2016-08-31] MEDS: VENLAFAXINE XR 150 MG CAP.SR.24H PO SCH (08:28)
[2016-08-31] MEDS: ALLOPURINOL 100 MG TABLET PO SCH (08:29)
[2016-08-31] MEDS: ASCORBIC ACID 500 MG TABLET PO SCH (08:29)
[2016-08-31] MEDS: CHOLECALCIFEROL 1,000 UNIT TABLET PO SCH (08:29)
[2016-08-31] MEDS: FERROUS SULFATE SLOW RELEASE 45 MG (ELEMENTAL) TABEC PO SCH (08:29)
[2016-08-31] MEDS: MONTELUKAST SODIUM 10 MG TABLET PO SCH (08:29)
[2016-08-31] MEDS: PATIENT MAY USE OWN MED- MD OK PO SCH ×2 (08:34→21:47)
[2016-08-31] MEDS ORDERED: QUETIAPINE FUMARATE 25 MG TABLET PO SCH (09:00)
--- NOTE | 2016-08-31 14:00 | NUR ---
Tolerated therapy. Was cooperative throughout the shift.
--- NOTE | 2016-08-31 15:00 | NUR ---
Seen by Dr. Phipps. Ordered ECG and Cardio consult. Informed Dr. Naranjo of Cardiac Consult.
--- NOTE | 2016-08-31 19:20 | NUR ---
Patient in room A/Ox3. Patient denies any distress or pain at this time. Requesting for ativan for anxiety Addendum: 09/01/16 at 0444 by PRAKASH MONTANO RN charted on wrong patient
[2016-08-31 20:17] VITALS: BP 130/63
[2016-08-31] MEDS: ATORVASTATIN 20 MG TABLET PO SCH (21:46)
[2016-08-31] MEDS: DOCUSATE SODIUM 100 MG CAPSULE PO SCH (21:46)
--- NOTE | 2016-08-31 23:21 | NUR ---
Patient sleeping with no distress noted
[2016-09-01 05:58] VITALS: BP 165/77
[2016-09-01] MEDS: CARVEDILOL 12.5 MG TABLET PO SCH ×2 (06:02→17:15)
[2016-09-01] MEDS: PANTOPRAZOLE SODIUM 40 MG TABLET.DR PO SCH (06:02)
[2016-09-01] MEDS: AMLODIPINE 5 MG TABLET PO SCH ×2 (06:03→17:15)
[2016-09-01 06:42] LABS: ALANINE AMINOTRANSFERASE 12 U/L (16-63); ALKALINE PHOSPHATASE 89 U/L (50-136); ASPARTATE AMINOTRANSFERASE 13 U/L (15-37); BILIRUBIN,TOTAL 0.4 mg/dL (0.2-1.0); CARBON DIOXIDE 29 mmol/L (21-32); CHLORIDE 107 mmol/L (98-107); CREATININE 2.4 mg/dL (0.6-1.3); GLUCOSE 92 mg/dL (74-106); MAGNESIUM 2.2 mg/dL (1.8-2.4); PHOSPHOROUS 3.7 mg/dL (2.5-4.9); POTASSIUM 3.9 mmol/L (3.5-5.1); UREA NITROGEN, BLOOD 58 mg/dL (7-18)
[2016-09-01 07:15] LABS: BASOPHILS % (AUTO) 0.2 % (0.0-2.0); EOSINOPHILS # (AUTO) 0.3 K/uL (0.0-0.7); EOSINOPHILS % (AUTO) 4.1 % (0.0-7.0); HEMATOCRIT 35.3 % (40-50); HEMOGLOBIN 11.3 G/DL (14.0-18.0); LYMPHOCYTES # (AUTO) 1.7 K/UL (0.8-4.8); LYMPHOCYTES % (AUTO) 22.4 % (20.5-51.5); MEAN CORPUSCULAR HEMOGLOBIN 28.3 UUG (27.0-31.0); MEAN CORPUSCULAR HGB CONC 32 g/dL (32.0-37.0); MEAN CORPUSCULAR VOLUME 88.4 FL (82.0-92.0); MONOCYTES # (AUTO) 0.7 K/UL (0.1-1.30); MONOCYTES % (AUTO) 9.9 % (0.0-11.0); NEUTROPHILS # (AUTO) 4.8 K/UL (1.8-8.9); NEUTROPHILS % (AUTO) 63.4 % (38.5-71.5); PLATELET COUNT (AUTO) 167 K/UL (150-450); RED BLOOD CELL COUNT(AUTO) 3.99 MIL/UL (4.7-6.1); WHITE BLOOD COUNT (AUTO) 7.5 K/UL (4.0-11.2)
[2016-09-01 08:00] VITALS: BP 136/73
[2016-09-01] MEDS: FERROUS SULFATE SLOW RELEASE 45 MG (ELEMENTAL) TABEC PO SCH (08:39)
[2016-09-01] MEDS: FLUTICASONE/SALMETEROL 250/50 INHALER INH SCH ×2 (08:39→21:04)
[2016-09-01] MEDS: CHOLECALCIFEROL 1,000 UNIT TABLET PO SCH (08:39)
[2016-09-01] MEDS: DIVALPROEX SPRINKLE 125 MG CAP.SPRINK PO SCH ×2 (08:39→17:00)
[2016-09-01] MEDS: PATIENT MAY USE OWN MED- MD OK PO SCH ×2 (08:40→21:08)
[2016-09-01] MEDS: MONTELUKAST SODIUM 10 MG TABLET PO SCH (08:40)
[2016-09-01] MEDS: ALLOPURINOL 100 MG TABLET PO SCH (08:40)
[2016-09-01] MEDS: ASCORBIC ACID 500 MG TABLET PO SCH (08:40)
[2016-09-01] MEDS: ASPIRIN 81 MG TAB.CHEW PO SCH (09:00)
[2016-09-01] MEDS ORDERED: hydrALAZINE HCL 50 MG TABLET PO SCH (11:00)
[2016-09-01] MEDS ORDERED: QUETIAPINE FUMARATE 25 MG TABLET PO SCH (12:15)
[2016-09-01] MEDS: VENLAFAXINE XR 150 MG CAP.SR.24H PO SCH (12:21)
[2016-09-01] MEDS: hydrALAZINE HCL 25 MG TABLET PO SCH ×2 (12:22→21:04)
[2016-09-01] MEDS: QUETIAPINE FUMARATE 25 MG TABLET PO SCH (14:58)
[2016-09-01 15:31] LABS: *BILIRUBIN,URIN NEGATIVE (NEGATIVE); *BLOOD, URINE NEGATIVE (NEGATIVE); *CLARITY,URINE CLEAR (CLEAR); *COLOR,URINE YELLOW (YELLOW); *KETONES,URINE NEGATIVE (NEGATIVE); *PROTEIN,URINE TRACE (NEGATIVE); *UROBILINOGEN,URINE 0.2 E.U./dl (NORMAL); LEUKOCYTE ESTERASE ,URINE NEGATIVE (NEGATIVE); NITRITE, URINE NEGATIVE (NEGATIVE); PH,URINE 5.5 (5.0-8.0); UGLUCOSE NEGATIVE (NEGATIVE)
[2016-09-01 16:06] LABS: *CREATININE,URINE 86.6 mg/dL (30-125); *URINE TOTAL PROTEIN RANDOM 25.1 mg/dL (<150/24HR)
[2016-09-01 16:19] LABS: MUCUS,URINE FEW /LPF (0-FEW); WBC,URINE 0-3 /HPF (0-3)
--- NOTE | 2016-09-01 18:43 | NUR ---
pt blood pressure elevated during middle of day. pt given hydralazine. pt bp reduced. pt refused medications at night times and becomes more beligerent. pt still refuses med and states i want to go home. pt seen by doctor mark. pt still refuses med. no signs of acute distress and is becoming more confused.
--- NOTE | 2016-09-01 19:30 | NUR ---
Patient resting on bed with no s/s of distress. Verbalizes absence of pain at this time. Call light within reach. Will continue to monitor.
--- NOTE | 2016-09-01 19:37 | NUR ---
pt still refused med. bp 126/61 hr 69 o2 98%. still refused meds. will endorse to shift manager.
[2016-09-01 20:00] VITALS: BP 165/69
[2016-09-01] MEDS: ATORVASTATIN 20 MG TABLET PO SCH (21:02)
[2016-09-01] MEDS: DOCUSATE SODIUM 100 MG CAPSULE PO SCH (21:04)
[2016-09-02] MEDS: PANTOPRAZOLE SODIUM 40 MG TABLET.DR PO SCH (06:20)
[2016-09-02] MEDS: AMLODIPINE 5 MG TABLET PO SCH ×2 (06:22→16:35)
[2016-09-02] MEDS: CARVEDILOL 12.5 MG TABLET PO SCH ×2 (06:22→16:36)
--- NOTE | 2016-09-02 06:53 | NUR ---
Patient slept well throughout the night. Supervised during ambulation. Sleeping at this time with no s/s of distress. Pleasant during the shift. Due meds given. Needs attended. Call light kept within reach. Endorsed accordingly.
--- NOTE | 2016-09-02 07:10 | NUR ---
Patient received from movie machine operator, in stable conditions, no signs of acute distress noted. No verbalized needs at this time, AAOx3. Respirations even and unlabored on RA. Skin intact, no other needs at this time. SSafety precautions maintained, call light within reach.
[2016-09-02 07:36] LABS: ALANINE AMINOTRANSFERASE 10 U/L (16-63); ALKALINE PHOSPHATASE 89 U/L (50-136); ASPARTATE AMINOTRANSFERASE 16 U/L (15-37); BASOPHILS % (AUTO) 0.4 % (0.0-2.0); BILIRUBIN,TOTAL 0.4 mg/dL (0.2-1.0); CARBON DIOXIDE 29 mmol/L (21-32); CHLORIDE 108 mmol/L (98-107); CREATININE 2.3 mg/dL (0.6-1.3); EOSINOPHILS # (AUTO) 0.4 K/uL (0.0-0.7); EOSINOPHILS % (AUTO) 4.9 % (0.0-7.0); GLUCOSE 83 mg/dL (74-106); HEMATOCRIT 35.3 % (40-50); HEMOGLOBIN 11.5 G/DL (14.0-18.0); LYMPHOCYTES # (AUTO) 1.4 K/UL (0.8-4.8); LYMPHOCYTES % (AUTO) 18.6 % (20.5-51.5); MAGNESIUM 2.3 mg/dL (1.8-2.4); MEAN CORPUSCULAR HEMOGLOBIN 28.9 UUG (27.0-31.0); MEAN CORPUSCULAR HGB CONC 33 g/dL (32.0-37.0); MEAN CORPUSCULAR VOLUME 88.5 FL (82.0-92.0); MONOCYTES # (AUTO) 0.7 K/UL (0.1-1.30); MONOCYTES % (AUTO) 9.6 % (0.0-11.0); NEUTROPHILS # (AUTO) 4.8 K/UL (1.8-8.9); NEUTROPHILS % (AUTO) 66.5 % (38.5-71.5); PHOSPHOROUS 3.7 mg/dL (2.5-4.9); PLATELET COUNT (AUTO) 165 K/UL (150-450); RED BLOOD CELL COUNT(AUTO) 3.99 MIL/UL (4.7-6.1); UREA NITROGEN, BLOOD 58 mg/dL (7-18); WHITE BLOOD COUNT (AUTO) 7.3 K/UL (4.0-11.2)
[2016-09-02] MEDS: CHOLECALCIFEROL 1,000 UNIT TABLET PO SCH (08:56)
[2016-09-02] MEDS: ASPIRIN 81 MG TAB.CHEW PO SCH (08:56)
[2016-09-02] MEDS: MONTELUKAST SODIUM 10 MG TABLET PO SCH (08:56)
[2016-09-02] MEDS: ALLOPURINOL 100 MG TABLET PO SCH (08:56)
[2016-09-02] MEDS: VENLAFAXINE XR 150 MG CAP.SR.24H PO SCH (08:56)
[2016-09-02] MEDS: FLUTICASONE/SALMETEROL 250/50 INHALER INH SCH ×2 (08:56→20:40)
[2016-09-02] MEDS: DIVALPROEX SPRINKLE 125 MG CAP.SPRINK PO SCH ×2 (08:56→16:33)
[2016-09-02] MEDS: PATIENT MAY USE OWN MED- MD OK PO SCH ×2 (08:57→20:40)
[2016-09-02] MEDS: hydrALAZINE HCL 25 MG TABLET PO SCH ×2 (08:57→20:42)
[2016-09-02] MEDS: ASCORBIC ACID 500 MG TABLET PO SCH (08:57)
[2016-09-02] MEDS: FERROUS SULFATE SLOW RELEASE 45 MG (ELEMENTAL) TABEC PO SCH (08:57)
[2016-09-02 11:54] VITALS: BP 123/69
[2016-09-02] MEDS: QUETIAPINE FUMARATE 25 MG TABLET PO SCH (14:23)
--- NOTE | 2016-09-02 19:30 | NUR ---
Received patient resting in bed with no s/s of distress. No complaints of pain at this time. Call light within reach. Will continue to monitor.
[2016-09-02 20:33] VITALS: BP 119/67
[2016-09-02] MEDS: DOCUSATE SODIUM 100 MG CAPSULE PO SCH (20:41)
[2016-09-02] MEDS: ATORVASTATIN 20 MG TABLET PO SCH (20:41)
[2016-09-03] MEDS: AMLODIPINE 5 MG TABLET PO SCH ×3 (05:58→16:59)
[2016-09-03] MEDS: CARVEDILOL 12.5 MG TABLET PO SCH ×3 (05:59→16:59)
[2016-09-03] MEDS: PANTOPRAZOLE SODIUM 40 MG TABLET.DR PO SCH (06:00)
--- NOTE | 2016-09-03 06:48 | NUR ---
Patient resting in bed, no distress noted. Reports having no pain. Slept well during the night. Kept comfortable. Supervised during ambulation. Call light kept within reach. Frequent checks done. Needs attended. Due meds given. Reminded to call for help whenever necessary. Endorsed accordingly.
[2016-09-03 08:26] VITALS: BP 152/75
[2016-09-03] MEDS: ASPIRIN 81 MG TAB.CHEW PO SCH (10:00)
[2016-09-03] MEDS: CHOLECALCIFEROL 1,000 UNIT TABLET PO SCH (10:00)
[2016-09-03] MEDS: ALLOPURINOL 100 MG TABLET PO SCH (10:00)
[2016-09-03] MEDS: MONTELUKAST SODIUM 10 MG TABLET PO SCH (10:00)
[2016-09-03] MEDS: DIVALPROEX SPRINKLE 125 MG CAP.SPRINK PO SCH ×3 (10:01→16:58)
[2016-09-03] MEDS: FERROUS SULFATE SLOW RELEASE 45 MG (ELEMENTAL) TABEC PO SCH (10:01)
[2016-09-03] MEDS: VENLAFAXINE XR 150 MG CAP.SR.24H PO SCH (10:01)
[2016-09-03] MEDS: hydrALAZINE HCL 25 MG TABLET PO SCH ×2 (10:01→20:55)
[2016-09-03] MEDS: ASCORBIC ACID 500 MG TABLET PO SCH (10:01)
[2016-09-03] MEDS: FLUTICASONE/SALMETEROL 250/50 INHALER INH SCH ×2 (10:05→21:02)
[2016-09-03] MEDS: PATIENT MAY USE OWN MED- MD OK PO SCH ×2 (11:35→20:56)
--- NOTE | 2016-09-03 12:16 | NUR ---
PT SEEN SLEEPING. PT HAS NO CHANGES IN loc> PT ASSESSED FOR STROKE SYMPTOMS. PT IS ASYMPTOMATIC. PT IS NOT BELIGERENT. PT ADHERED TO MEDS. BP WNL. WILL CONTINUE TO MONITOR FOR DISTRESS.
[2016-09-03] MEDS: QUETIAPINE FUMARATE 25 MG TABLET PO SCH (13:25)
--- NOTE | 2016-09-03 16:56 | NUR ---
Patient became confused and insistant on leaving unit at approxiamately 1630. Patient moved to room closer to nursing station. Patient becoming physically threatening. Security called. Patient called as well. Awaiting call back. Patient refusing medications.
[2016-09-03] MEDS: HALOPERIDOL LACTATE 5 MG/1 ML VIAL IM PRN ×2 (17:04→23:10)
--- NOTE | 2016-09-03 17:14 | NUR ---
Patient given Haldol IM in right deltoid for increased agitation and aggression. Explain everything to patient. Patient calm and cooperative at this time. Patient refused all scheduled PO meds.
[2016-09-03 20:13] VITALS: BP 132/62
[2016-09-03] MEDS: ATORVASTATIN 20 MG TABLET PO SCH (20:56)
[2016-09-03] MEDS: DOCUSATE SODIUM 100 MG CAPSULE PO SCH (20:56)
[2016-09-04] MEDS: PANTOPRAZOLE SODIUM 40 MG TABLET.DR PO SCH (06:14)
[2016-09-04] MEDS: AMLODIPINE 5 MG TABLET PO SCH ×2 (06:16→16:25)
[2016-09-04] MEDS: CARVEDILOL 12.5 MG TABLET PO SCH ×2 (06:16→16:25)
[2016-09-04 08:00] VITALS: BP 114/58
[2016-09-04] MEDS: FLUTICASONE/SALMETEROL 250/50 INHALER INH SCH (08:20)
[2016-09-04] MEDS: CHOLECALCIFEROL 1,000 UNIT TABLET PO SCH (08:21)
[2016-09-04] MEDS: VENLAFAXINE XR 150 MG CAP.SR.24H PO SCH (08:21)
[2016-09-04] MEDS: ASPIRIN 81 MG TAB.CHEW PO SCH (08:21)
[2016-09-04] MEDS: hydrALAZINE HCL 25 MG TABLET PO SCH (08:21)
[2016-09-04] MEDS: ALLOPURINOL 100 MG TABLET PO SCH (08:21)
[2016-09-04] MEDS: ASCORBIC ACID 500 MG TABLET PO SCH (08:21)
[2016-09-04] MEDS: PATIENT MAY USE OWN MED- MD OK PO SCH (08:22)
[2016-09-04] MEDS: FERROUS SULFATE SLOW RELEASE 45 MG (ELEMENTAL) TABEC PO SCH (08:22)
[2016-09-04] MEDS: MONTELUKAST SODIUM 10 MG TABLET PO SCH (08:22)
[2016-09-04] MEDS: DIVALPROEX SPRINKLE 125 MG CAP.SPRINK PO SCH ×2 (08:22→16:26)
[2016-09-04] MEDS: QUETIAPINE FUMARATE 25 MG TABLET PO SCH (13:29)
[2016-09-04 16:25] VITALS: BP 147/69
--- NOTE | 2016-09-04 17:34 | NUR ---
PT SEEN BY PSYCHIATRIST. md PUT IN NEW ORDERS FOR SEROQUEL PRN AND DEPAKOTE 250MG AT NIGHT TIME. PT REMAINED CALM DURING SHIFT. PT STATES THAT HE IS IN NO PAIN. MEDS EXPLAINED TO AMARILIS. PT ALSO SEEN BY DR RICHARDSON. PT HAVE NEW ORDERS FOR LABS. PT BLOOD PRESSURE WAS HIGH IN THE MORNING AND AFTERNOON. MEDS GIVEN. BP DROPPED. PT TOLERATED THERAPY. PT SHOWED NO SIGNS OF BEHAVIORAL CHANGE. PT PROVIDED COMFORT MEASURES. WILL ENDORSE md ORDERS ON MONITORING THE PATIENT.
--- NOTE | 2016-09-04 19:25 | NUR ---
Pt had code blue at 1900. bessie charge nurse was with the patient on the toilet. carmen states that the patient was unresponsive and not breathing. pt was sitting on toilet when and had his eyes rolling back. pt was found drooling. carmen splitter hand states that the patient started going cold. bessie charge nurse called shailesh watkins. ER doctor DR. Johnson was on scene. pt was arousable to heavy touch and and was awaken by nurse on shift. recommended EKG cardiac labs and blood sugar monitoring. pt blood glucose 161. bp 132/48 HR 73. 02 93%. EKG ordered. see chart. ER called primary physician dr. flores. no response on cell phone or direct number. DR johnson calling frintit. DR. johnson recommended cardiac labs ekg monitoring and blood sugar monitoring. awaiting recommendations.
[2016-09-04] MEDS ORDERED: DIVALPROEX SPRINKLE 125 MG CAP.SPRINK PO SCH (20:00)
--- NOTE | 2016-09-04 20:28 | NUR ---
Received pt from SHAWANDA Huntley. Pt currently lying on his bed alberts's position, fully alert oriented x2-3, turn and repositioned by himself, follows command, bruises observed bilateral arms. Pt stated that he walks to bathroom and had bm today, had syncopal episode before 7m shift. Tati Maldonado NP called and need to transfer pt to Tele for observation. Need to discharge from ARU and transferred to ER and to tele.
--- NOTE | 2016-09-04 20:35 | NUR ---
Transferred pt to ER via hospital bed, report to SHAWANDA Lee.Charts given to SHAWANDA Lee.
[2016-09-05] MEDS ORDERED: ASPI81TA44 PO (08:27)
[2016-09-05] MEDS ORDERED: DIVA125C PO ×2 (08:32)
[2016-09-05] MEDS ORDERED: IPRA0.2S6 NEB (08:35)
[2016-09-05] MEDS ORDERED: HYDR-4077 PO (08:41)
[2016-09-05] MEDS ORDERED: QUET25TA PO ×2 (08:43)
[2016-09-07] MEDS ORDERED: FERROUS SULFATE PO (11:34)
[2016-09-07] MEDS ORDERED: CLON1PAT TD (11:34)
== END 2016-09-06 12:37 | disposition short-term general hospital (02) | DRG 56 ==
PROVIDERS: ADMIT Physical Medicine & Rehabilitation Pain Medicine; ATTEND Physical Medicine & Rehabilitation Pain Medicine
DX: I69.820 Aphasia following other cerebrovascular disease (principal); G93.41 Metabolic encephalopathy; I13.0 Hypertensive heart and chronic kidney disease with heart failure and stage 1 through stage 4 chronic kidney disease, or unspecified chronic kidney disease; N17.9 Acute kidney failure, unspecified; F33.2 Major depressive disorder, recurrent severe without psychotic features; I69.819 Unspecified symptoms and signs involving cognitive functions following other cerebrovascular disease; F01.50 Vascular dementia, unspecified severity, without behavioral disturbance, psychotic disturbance, mood disturbance, and anxiety; I69.898 Other sequelae of other cerebrovascular disease; J44.9 Chronic obstructive pulmonary disease, unspecified; R53.1 Weakness; I50.9 Heart failure, unspecified; N18.9 Chronic kidney disease, unspecified; I25.2 Old myocardial infarction; I25.10 Atherosclerotic heart disease of native coronary artery without angina pectoris; Z95.1 Presence of aortocoronary bypass graft; Z87.891 Personal history of nicotine dependence; M10.9 Gout, unspecified; D64.9 Anemia, unspecified; E78.5 Hyperlipidemia, unspecified; Z95.5 Presence of coronary angioplasty implant and graft; R32 Unspecified urinary incontinence; M48.00 Spinal stenosis, site unspecified; E83.9 Disorder of mineral metabolism, unspecified; F06.8 Other specified mental disorders due to known physiological condition; R55 Syncope and collapse; J45.909 Unspecified asthma, uncomplicated; F29 Unspecified psychosis not due to a substance or known physiological condition; F41.0 Panic disorder [episodic paroxysmal anxiety]; I08.0 Rheumatic disorders of both mitral and aortic valves; I45.81 Long QT syndrome; I48.0 Paroxysmal atrial fibrillation; R29.6 Repeated falls; M89.9 Disorder of bone, unspecified; N28.1 Cyst of kidney, acquired; Z79.899 Other long term (current) drug therapy; Z82.49 Family history of ischemic heart disease and other diseases of the circulatory system; Z95.810 Presence of automatic (implantable) cardiac defibrillator
CPT/HCPCS: 36415; 70030-TC; 83735; 84100; 84156; 84300; 85025; 92507; 92523; 93005; 97110; 97112; 97116; 97161; 97530; 97535; J1630

== ENCOUNTER 2016-09-04 20:31 | Inpatient (IN) | payer MEDICARE ==
[~2016-09-04] VITALS: Ht 177.8 cm; Wt 68.9 kg
[~2016-09-04 20:31] MED LIST changes: -ALBU8.5H8 IH; -LISI-603 PO; -MAGN500P33 PO; -MOME13HF IH; -OMEG1CAP55 PO; -UBID10CA9 PO
--- NOTE | 2016-09-04 21:06 | NUR ---
EKG done prior to arival to ER, ok per Dr. Dash.
[2016-09-04 21:20] LABS: BASOPHILS % (AUTO) 0.5 % (0.0-2.0); EOSINOPHILS # (AUTO) 0.3 K/uL (0.0-0.7); EOSINOPHILS % (AUTO) 3.3 % (0.0-7.0); HEMATOCRIT 40.3 % (40-50); HEMOGLOBIN 13.1 G/DL (14.0-18.0); LYMPHOCYTES # (AUTO) 1.1 K/UL (0.8-4.8); LYMPHOCYTES % (AUTO) 12.5 % (20.5-51.5); MEAN CORPUSCULAR HEMOGLOBIN 28.4 UUG (27.0-31.0); MEAN CORPUSCULAR HGB CONC 32 g/dL (32.0-37.0); MEAN CORPUSCULAR VOLUME 87.6 FL (82.0-92.0); MONOCYTES # (AUTO) 0.6 K/UL (0.1-1.30); MONOCYTES % (AUTO) 6.5 % (0.0-11.0); NEUTROPHILS # (AUTO) 7.2 K/UL (1.8-8.9); NEUTROPHILS % (AUTO) 77.2 % (38.5-71.5); PLATELET COUNT (AUTO) 208 K/UL (150-450); WHITE BLOOD COUNT (AUTO) 9.2 K/UL (4.0-11.2)
[2016-09-04 21:26] LABS: CARBON DIOXIDE 29 mmol/L (21-32); CHLORIDE 105 mmol/L (98-107); CREATININE 2.5 mg/dL (0.6-1.3); GLUCOSE 127 mg/dL (74-106); POTASSIUM 4.4 mmol/L (3.5-5.1); UREA NITROGEN, BLOOD 53 mg/dL (7-18)
[2016-09-04 21:32] LABS: ALANINE AMINOTRANSFERASE 11 U/L (16-63); ALKALINE PHOSPHATASE 100 U/L (50-136); ASPARTATE AMINOTRANSFERASE 15 U/L (15-37); BILIRUBIN,DIRECT 0.1 mg/dL (0.0-0.2); BILIRUBIN,TOTAL 0.4 mg/dL (0.2-1.0); TOTAL PROTEIN, SERUM 7.9 g/dL (6.4-8.2)
[2016-09-04] MEDS ORDERED: IV NORMAL SALINE 500 ML BAG IV ONE (21:45)
--- NOTE | 2016-09-04 21:56 | NUR ---
Call placed to [facility], Gris Hale will be paged.
--- NOTE | 2016-09-04 22:30 | NUR ---
Call placed to [employer] Tati Maldonado will be paged.
[2016-09-04] MEDS ORDERED: MAGNESIUM HYDROXIDE 30 ML LIQUID UDC PO PRN (23:00)
[2016-09-04] MEDS ORDERED: Z GUARD REMEDY PASTE 57 GM TUBE TOP PRN (23:00)
[2016-09-04] MEDS ORDERED: ACETAMINOPHEN 325 MG TABLET PO PRN (23:00)
[2016-09-04] MEDS ORDERED: HYDROCODONE/APAP 5-325MG TABLET PO PRN (23:00)
[2016-09-04] MEDS ORDERED: ONDANSETRON 4 MG/2 ML VIAL IV PRN (23:00)
--- NOTE | 2016-09-04 23:18 | NUR ---
Julianne called to [facility]. Will transfer to room 219
--- NOTE | 2016-09-05 00:07 | NUR ---
Transported patient to room 210, patient in stable condition.
--- NOTE | 2016-09-05 00:15 | NUR ---
RECEIVED PATIENT VIA GURNEY FROM ER. PATIENT IS A/O X2. PATIENT IS ABLE TO AMBULATE FROM GURNEY TO BED WITH CANE. LEFT SIDED WEAKNESS NOTED. DENIES PAIN OR DISCOMFORT. NO RESP. DISTRESS NOTED. H/L INTACT AND PATENT, NOTED TO RIGHT HAND. BP ELEVATED, 181/64. ALL OTHER VSS. ORIENTED PATIENT TO ROOM AND CALL LIGHT. CALL LIGHT IN REACH. BED ALARM ON. ALL NEEDS ATTENDED. WILL CONTINUE TO MONITOR AND ASSESS.
[2016-09-05 00:22] VITALS: BP 183/64
--- NOTE | 2016-09-05 00:25 | NUR ---
CALLED OUT TO DR. PABLO DIRECTOR AMBULATORY FOR BLOOD PRESSURE MEDICATION. WAITING FOR CALL BACK.
--- NOTE | 2016-09-05 00:32 | NUR ---
RECEIVED NEW ORDERS FROM DR. PABLO FOR CLONIDINE 0.1MG PRN. PATIENT IS ON TELE V-PACING. WILL CONTINUE TO MONITOR.
[2016-09-05] MEDS: IV NS 1000 ML 1,000 ML IV PRN ×2 (00:42→13:25)
[2016-09-05] MEDS: CLONIDINE HCL 0.1 MG TABLET PO PRN ×2 (00:42→06:06)
--- NOTE | 2016-09-05 00:45 | NUR ---
PATIENT GIVEN CLONIDINE 0.1MG PO PRN FOR BP 181/64. WILL CONTINUE TO MONITOR.
[2016-09-05] MEDS ORDERED: CLONIDINE HCL 0.1 MG TABLET ONE ×2 (00:50→06:11)
[2016-09-05] MEDS ORDERED: CARVEDILOL 12.5 MG TABLET PO SCH ×2 (03:15→09:00)
[2016-09-05] MEDS ORDERED: ALBUTEROL SULFATE 2.5 MG/3 ML NEBU NEB PRN (03:15)
[2016-09-05] MEDS ORDERED: AMLODIPINE 5 MG TABLET PO SCH (03:15)
[2016-09-05] MEDS ORDERED: ACETAMINOPHEN 325 MG TABLET PO PRN (03:15)
[2016-09-05] MEDS ORDERED: NITROGLYCERIN 0.4 MG/TAB BOTTLE SL PRN (03:15)
--- NOTE | 2016-09-05 06:15 | NUR ---
PATIENT ASLEEP IN BED. BP 163/64. PATIENT GIVEN CLONIDINE 0.1MG PO PRN. ALL OTHER VSS. ON TELE V-PACING. IVF INFUSING WELL. CALL LIGHT IN REACH. ALL NEEDS ATTENDED. WILL CONTINUE TO MONITOR .
[2016-09-05 06:50] VITALS: BP 163/64
[2016-09-05] MEDS ORDERED: PANTOPRAZOLE SODIUM 40 MG TABLET.DR PO SCH (07:00)
--- NOTE | 2016-09-05 07:30 | NUR ---
received report from film processing shift supervisor nurse, patient in bed sleeping, safety check, bed in low position, side rails up x2.
[2016-09-05] MEDS ORDERED: ASPI81TA44 PO (08:27)
[2016-09-05] MEDS ORDERED: DIVA125C PO ×2 (08:32)
[2016-09-05] MEDS ORDERED: IPRA0.2S6 NEB (08:35)
[2016-09-05] MEDS ORDERED: HYDR-4077 PO (08:41)
[2016-09-05] MEDS ORDERED: QUET25TA PO ×2 (08:43)
[2016-09-05] MEDS ORDERED: ASCORBIC ACID 500 MG PO SCH (09:00)
[2016-09-05] MEDS ORDERED: IRON 65 MG PO SCH (09:00)
[2016-09-05] MEDS: FERROUS SULFATE SLOW RELEASE 45 MG (ELEMENTAL) TABEC PO SCH (09:32)
[2016-09-05] MEDS: PANTOPRAZOLE SODIUM 40 MG TABLET.DR PO SCH (09:32)
[2016-09-05] MEDS: CHOLECALCIFEROL 1,000 UNIT TABLET PO SCH (09:32)
[2016-09-05] MEDS: ALLOPURINOL 100 MG TABLET PO SCH (09:32)
[2016-09-05] MEDS: ASCORBIC ACID 500 MG TABLET PO SCH (09:32)
[2016-09-05] MEDS: AMLODIPINE 5 MG TABLET PO SCH ×2 (09:35→20:30)
[2016-09-05] MEDS: CARVEDILOL 25 MG TABLET PO SCH ×2 (09:35→17:33)
[2016-09-05] MEDS ORDERED: QUETIAPINE FUMARATE 25 MG TABLET PO PRN (10:30)
[2016-09-05] MEDS: FLUTICASONE/SALMETEROL 250/50 INHALER INH SCH ×2 (10:30→20:24)
[2016-09-05] MEDS: DABIGATRAN ETEXILATE MESYLATE 75 MG CAPSULE PO SCH ×2 (10:31→20:32)
[2016-09-05] MEDS: VENLAFAXINE XR 150 MG CAP.SR.24H PO SCH (10:34)
[2016-09-05] MEDS: DIVALPROEX SPRINKLE 125 MG CAP.SPRINK PO SCH ×3 (10:34→20:25)
[2016-09-05 10:54] LABS: *BILIRUBIN,URIN NEGATIVE (NEGATIVE); *BLOOD, URINE NEGATIVE (NEGATIVE); *CLARITY,URINE CLEAR (CLEAR); *COLOR,URINE YELLOW (YELLOW); *KETONES,URINE NEGATIVE (NEGATIVE); *PROTEIN,URINE TRACE (NEGATIVE); *UROBILINOGEN,URINE 0.2 E.U./dl (NORMAL); LEUKOCYTE ESTERASE ,URINE NEGATIVE (NEGATIVE); NITRITE, URINE NEGATIVE (NEGATIVE); UGLUCOSE NEGATIVE (NEGATIVE)
--- NOTE | 2016-09-05 11:00 | NUR ---
PATIENT WORKED WITH OCCUPATIONAL THERAPY, TOLERATED WELL.
[2016-09-05 11:14] LABS: BACTERIA,URINE NONE SEEN /HPF (NONE SEEN); RBC,URINE 0-3 /HPF (0-3); SQUAMOUS EPITHELIAL CELL,UR FEW /HPF (NONE SEEN); WBC,URINE NONE SEEN /HPF (0-3)
[2016-09-05] MEDS: hydrALAZINE HCL 50 MG TABLET PO SCH ×2 (11:45→20:37)
[2016-09-05] MEDS ORDERED: IPRATROPIUM BROMIDE 0.5 MG/2.5 ML NEBU NEB PRN (11:45)
[2016-09-05 11:58] VITALS: BP 143/73
[2016-09-05] MEDS: ASPIRIN EC 81 MG TABLET.DR PO SCH (13:01)
[2016-09-05] MEDS: hydrALAZINE HCL 25 MG TABLET PO PRN (13:05)
[2016-09-05] MEDS: QUETIAPINE FUMARATE 25 MG TABLET PO SCH (14:28)
[2016-09-05 14:55] LABS: BASOPHILS % (AUTO) 0.4 % (0.0-2.0); EOSINOPHILS # (AUTO) 0.2 K/uL (0.0-0.7); EOSINOPHILS % (AUTO) 2.9 % (0.0-7.0); HEMATOCRIT 33.3 % (40-50); HEMOGLOBIN 10.7 G/DL (14.0-18.0); LYMPHOCYTES % (AUTO) 12.9 % (20.5-51.5); MEAN CORPUSCULAR HEMOGLOBIN 28.4 UUG (27.0-31.0); MEAN CORPUSCULAR HGB CONC 32 g/dL (32.0-37.0); MONOCYTES # (AUTO) 0.7 K/UL (0.1-1.30); MONOCYTES % (AUTO) 9.5 % (0.0-11.0); NEUTROPHILS # (AUTO) 5.8 K/UL (1.8-8.9); NEUTROPHILS % (AUTO) 74.3 % (38.5-71.5); PLATELET COUNT (AUTO) 163 K/UL (150-450); RED BLOOD CELL COUNT(AUTO) 3.78 MIL/UL (4.7-6.1); WHITE BLOOD COUNT (AUTO) 7.7 K/UL (4.0-11.2)
[2016-09-05 15:26] VITALS: BP 133/68
[2016-09-05 15:34] LABS: ALANINE AMINOTRANSFERASE 10 U/L (16-63); ALKALINE PHOSPHATASE 79 U/L (50-136); ASPARTATE AMINOTRANSFERASE 15 U/L (15-37); BILIRUBIN,TOTAL 0.4 mg/dL (0.2-1.0); CARBON DIOXIDE 30 mmol/L (21-32); CHLORIDE 108 mmol/L (98-107); CREATININE 2.1 mg/dL (0.6-1.3); GLUCOSE 95 mg/dL (74-106); MAGNESIUM 2.1 mg/dL (1.8-2.4); PHOSPHOROUS 3.2 mg/dL (2.5-4.9); POTASSIUM 4.3 mmol/L (3.5-5.1); TOTAL PROTEIN, SERUM 6.2 g/dL (6.4-8.2); UREA NITROGEN, BLOOD 45 mg/dL (7-18)
[2016-09-05] MEDS: MONTELUKAST SODIUM 10 MG TABLET PO SCH (17:27)
--- NOTE | 2016-09-05 18:14 | NUR ---
PATIENT IS IN BED, NO EVIDENCE OF DISTRESS NOTED, NO SOB, NO PAIN, NO EVIDENCE OF DISTRESS NOTED. BED IN LOW POSITION, SIDE RAILS UP X2, BED ALARM SET.
[2016-09-05 20:14] VITALS: BP 147/67
[2016-09-05] MEDS: ATORVASTATIN 20 MG TABLET PO SCH (20:25)
[2016-09-05] MEDS ORDERED: DOCUSATE SODIUM 250 MG CAPSULE PO SCH (21:00)
[2016-09-05] MEDS ORDERED: TRAZODONE 50 MG TABLET PO SCH (21:00)
[2016-09-06 00:06] VITALS: BP 179/78
[2016-09-06] MEDS: hydrALAZINE HCL 25 MG TABLET PO PRN (01:12)
[2016-09-06 04:48] VITALS: BP 144/76
[2016-09-06] MEDS: PANTOPRAZOLE SODIUM 40 MG TABLET.DR PO SCH (06:04)
--- NOTE | 2016-09-06 06:33 | NUR ---
PT IN BED, SLEEPING AT THIS TIME, IN NO ACUTE SIGNS OF DISTRESS. BP WAS ELEVATED AT 0000, WAS GIVEN HYDRALAZINE PRESCRIBED, @ 4AM BP DECREASED TO 144/76. AV PACING ON TELE. PT TRIED TO GET OUT FROM BED AT TIMES, AND IV WAS PULLED OUT. REINSERTED ON LEFT FA. PROCEDURE TOLERATED WELL. BED ALARM ON, PT HAS UNSTEADY GAIT. SAFETY MAINTAINED. CALL LIGHT WITHIN REACH.
--- NOTE | 2016-09-06 07:05 | NUR ---
RECEIVED PT. WITH EYES CLOSED RESTING IN BED. NO S/S OF DISTRESS. PT TEA ROOM MANAGER WITH SINUS RHYTHM WITH BBB. WILL CONTINUE TO OBSERVE.
[2016-09-06 07:35] LABS: BASOPHILS % (AUTO) 0.4 % (0.0-2.0); EOSINOPHILS # (AUTO) 0.4 K/uL (0.0-0.7); HEMATOCRIT 36.4 % (40-50); HEMOGLOBIN 12.1 G/DL (14.0-18.0); LYMPHOCYTES # (AUTO) 1.4 K/UL (0.8-4.8); LYMPHOCYTES % (AUTO) 17.9 % (20.5-51.5); MEAN CORPUSCULAR HEMOGLOBIN 29.3 UUG (27.0-31.0); MEAN CORPUSCULAR HGB CONC 33 g/dL (32.0-37.0); MEAN CORPUSCULAR VOLUME 87.7 FL (82.0-92.0); MONOCYTES # (AUTO) 0.7 K/UL (0.1-1.30); MONOCYTES % (AUTO) 9.3 % (0.0-11.0); NEUTROPHILS # (AUTO) 5.5 K/UL (1.8-8.9); NEUTROPHILS % (AUTO) 67.4 % (38.5-71.5); PLATELET COUNT (AUTO) 186 K/UL (150-450); RED BLOOD CELL COUNT(AUTO) 4.15 MIL/UL (4.7-6.1)
[2016-09-06] MEDS: IV NS 1000 ML 1,000 ML IV PRN ×2 (08:19→21:20)
[2016-09-06 08:25] LABS: ALANINE AMINOTRANSFERASE 11 U/L (16-63); ALKALINE PHOSPHATASE 87 U/L (50-136); ASPARTATE AMINOTRANSFERASE 15 U/L (15-37); BILIRUBIN,TOTAL 0.5 mg/dL (0.2-1.0); CARBON DIOXIDE 28 mmol/L (21-32); CHLORIDE 107 mmol/L (98-107); CREATININE 1.9 mg/dL (0.6-1.3); GLUCOSE 81 mg/dL (74-106); PHOSPHOROUS 2.8 mg/dL (2.5-4.9); POTASSIUM 3.8 mmol/L (3.5-5.1); UREA NITROGEN, BLOOD 37 mg/dL (7-18)
[2016-09-06] MEDS: FERROUS SULFATE SLOW RELEASE 45 MG (ELEMENTAL) TABEC PO SCH (08:30)
[2016-09-06] MEDS: VENLAFAXINE XR 150 MG CAP.SR.24H PO SCH (08:30)
[2016-09-06] MEDS: DIVALPROEX SPRINKLE 125 MG CAP.SPRINK PO SCH ×3 (08:30→20:14)
[2016-09-06] MEDS: ASCORBIC ACID 500 MG TABLET PO SCH (08:31)
[2016-09-06] MEDS: CARVEDILOL 25 MG TABLET PO SCH ×2 (08:31→17:41)
[2016-09-06] MEDS: CHOLECALCIFEROL 1,000 UNIT TABLET PO SCH (08:31)
[2016-09-06] MEDS: ASPIRIN EC 81 MG TABLET.DR PO SCH (08:31)
[2016-09-06] MEDS: hydrALAZINE HCL 50 MG TABLET PO SCH ×2 (08:31→20:15)
[2016-09-06] MEDS: ALLOPURINOL 100 MG TABLET PO SCH (08:31)
[2016-09-06] MEDS: AMLODIPINE 5 MG TABLET PO SCH ×2 (08:32→20:15)
[2016-09-06] MEDS: DABIGATRAN ETEXILATE MESYLATE 75 MG CAPSULE PO SCH ×2 (08:33→20:16)
[2016-09-06] MEDS: FLUTICASONE/SALMETEROL 250/50 INHALER INH SCH ×2 (08:34→20:15)
[2016-09-06 11:41] VITALS: BP 132/73
--- NOTE | 2016-09-06 12:00 | NUR ---
NO ACUTE CHANGE. PT SEEN BY PHYSICAL THERAPY AND TOLERATED AMBULATION FAIRY WITHOUT ANY DIZZINESS OR SIGN OF SYNCOPE. SEE PT NOTES. CONTINUE WITH IV FLUIDS ORDERED.
--- NOTE | 2016-09-06 14:00 | NUR ---
PT SEEN BY DR. MOSHER AND CHANGED PT STATUS TO MED SURG.
[2016-09-06 15:30] VITALS: BP 142/64
[2016-09-06] MEDS: QUETIAPINE FUMARATE 25 MG TABLET PO SCH (15:31)
--- NOTE | 2016-09-06 16:30 | NUR ---
PT STABLE, DENIES DIZZINESS AND N/V. NO CHEST PAIN, NO CONFUSION, STABLE.
[2016-09-06] MEDS: MONTELUKAST SODIUM 10 MG TABLET PO SCH (17:42)
--- NOTE | 2016-09-06 19:30 | NUR ---
PATIENT IN BED, ALERT BUT FORGETFUL. ATTEMPTED TO GET OUT OF BED AND REMOVE IV LINE. REDIRECTED, SAFETY INITIATED. NEEDS ATTENDED. CALL LIGHT WITHIN REACH. WILL CONTINUE TO MONITOR
[2016-09-06 20:00] VITALS: BP 106/76
[2016-09-06] MEDS: ATORVASTATIN 20 MG TABLET PO SCH (20:15)
[2016-09-06] MEDS ORDERED: DOCUSATE SODIUM 100 MG CAPSULE PO SCH (21:00)
[2016-09-07 05:32] VITALS: BP 169/85
--- NOTE | 2016-09-07 06:05 | NUR ---
PATIENT GOT UP. REFUSED TO GO BACK TO BED. STANDING AT THE RESTROOM. UNABLE TO REDIRECT. TOOK A LOT OF CONVINCING UNTIL HE WENT BACK TO BED. REFUSED AM MEDICATIONS. BED ALARM ON. CALL LIGHT WITHIN REACH.
[2016-09-07] MEDS: PANTOPRAZOLE SODIUM 40 MG TABLET.DR PO SCH (06:57)
--- NOTE | 2016-09-07 08:00 | NUR ---
PT IN BED, AWAKE ALERT AND RESPONSIVE WITH CONFUSION. NO S.S OF PAIN OR DISTRESS NOTED. AWAITING DISCHARGE ORDER FROM DR. HERNÁNDEZ TO GO TO [facility].
[2016-09-07] MEDS: ALLOPURINOL 100 MG TABLET PO SCH (08:32)
[2016-09-07] MEDS: FERROUS SULFATE SLOW RELEASE 45 MG (ELEMENTAL) TABEC PO SCH (08:32)
[2016-09-07] MEDS: CHOLECALCIFEROL 1,000 UNIT TABLET PO SCH (08:32)
[2016-09-07] MEDS: hydrALAZINE HCL 50 MG TABLET PO SCH (08:32)
[2016-09-07] MEDS: ASPIRIN EC 81 MG TABLET.DR PO SCH (08:32)
[2016-09-07] MEDS: ASCORBIC ACID 500 MG TABLET PO SCH (08:32)
[2016-09-07] MEDS: AMLODIPINE 5 MG TABLET PO SCH (08:33)
[2016-09-07] MEDS: DIVALPROEX SPRINKLE 125 MG CAP.SPRINK PO SCH (08:33)
[2016-09-07] MEDS: VENLAFAXINE XR 150 MG CAP.SR.24H PO SCH (08:33)
[2016-09-07] MEDS: CARVEDILOL 25 MG TABLET PO SCH (08:33)
[2016-09-07] MEDS: DABIGATRAN ETEXILATE MESYLATE 75 MG CAPSULE PO SCH (08:34)
[2016-09-07] MEDS: FLUTICASONE/SALMETEROL 250/50 INHALER INH SCH (08:34)
[2016-09-07 08:35] LABS: BASOPHILS % (AUTO) 0.3 % (0.0-2.0); EOSINOPHILS # (AUTO) 0.5 K/uL (0.0-0.7); EOSINOPHILS % (AUTO) 5.7 % (0.0-7.0); HEMATOCRIT 36.7 % (40-50); HEMOGLOBIN 11.9 G/DL (14.0-18.0); LYMPHOCYTES # (AUTO) 1.4 K/UL (0.8-4.8); LYMPHOCYTES % (AUTO) 16.3 % (20.5-51.5); MEAN CORPUSCULAR HEMOGLOBIN 28.2 UUG (27.0-31.0); MEAN CORPUSCULAR HGB CONC 32 g/dL (32.0-37.0); MEAN CORPUSCULAR VOLUME 87.1 FL (82.0-92.0); MONOCYTES # (AUTO) 0.8 K/UL (0.1-1.30); MONOCYTES % (AUTO) 9.1 % (0.0-11.0); NEUTROPHILS # (AUTO) 6.1 K/UL (1.8-8.9); NEUTROPHILS % (AUTO) 68.6 % (38.5-71.5); PLATELET COUNT (AUTO) 174 K/UL (150-450); RED BLOOD CELL COUNT(AUTO) 4.22 MIL/UL (4.7-6.1); WHITE BLOOD COUNT (AUTO) 8.8 K/UL (4.0-11.2)
[2016-09-07 08:47] LABS: ALANINE AMINOTRANSFERASE 10 U/L (16-63); ALKALINE PHOSPHATASE 80 U/L (50-136); ASPARTATE AMINOTRANSFERASE 16 U/L (15-37); BILIRUBIN,TOTAL 0.5 mg/dL (0.2-1.0); CARBON DIOXIDE 29 mmol/L (21-32); CHLORIDE 107 mmol/L (98-107); CREATININE 1.9 mg/dL (0.6-1.3); GLUCOSE 82 mg/dL (74-106); PHOSPHOROUS 3.3 mg/dL (2.5-4.9); POTASSIUM 4.3 mmol/L (3.5-5.1); TOTAL PROTEIN, SERUM 6.7 g/dL (6.4-8.2); UREA NITROGEN, BLOOD 41 mg/dL (7-18)
[2016-09-07] MEDS ORDERED: CLONIDINE-TTS 1 PATCH TD SCH (11:30)
[2016-09-07] MEDS ORDERED: FERROUS SULFATE PO (11:34)
[2016-09-07] MEDS ORDERED: CLON1PAT TD (11:34)
--- NOTE | 2016-09-07 12:00 | NUR ---
SEEN BY DR. BLOOD WITH DISCHARGE ORDERS TO ACUTE REHAB.
[2016-09-07 12:53] VITALS: BP 117/62
--- NOTE | 2016-09-07 13:36 | NUR ---
DISCHARGED PT TO ARU [facility]. WHEELED TO ARU, PT IS STABLE REPORT GIVEN TO SHAWANDA BROWN.
[2016-09-27] MEDS ORDERED: FLUT1BLS INH (12:26)
[2016-09-27] MEDS ORDERED: CARV12.5 PO (12:26)
[2016-09-27] MEDS ORDERED: FLUD0.1T3 PO (12:26)
== END 2016-09-07 13:30 | DRG 69 ==
LOC: ER 20:32 → TELE 23:44 → MED 09-06 14:44 → TELE-TD 09-07 06:04 → MED 09-07 06:13
PROVIDERS: ADMIT Internal Medicine; ATTEND Internal Medicine
DX: G45.9 Transient cerebral ischemic attack, unspecified (principal); N17.0 Acute kidney failure with tubular necrosis; I13.0 Hypertensive heart and chronic kidney disease with heart failure and stage 1 through stage 4 chronic kidney disease, or unspecified chronic kidney disease; F33.0 Major depressive disorder, recurrent, mild; I50.32 Chronic diastolic (congestive) heart failure; E78.5 Hyperlipidemia, unspecified; F01.50 Vascular dementia, unspecified severity, without behavioral disturbance, psychotic disturbance, mood disturbance, and anxiety; J44.9 Chronic obstructive pulmonary disease, unspecified; N18.9 Chronic kidney disease, unspecified; Z86.73 Personal history of transient ischemic attack (TIA), and cerebral infarction without residual deficits; M10.9 Gout, unspecified; F41.9 Anxiety disorder, unspecified; F32.9 Major depressive disorder, single episode, unspecified; F29 Unspecified psychosis not due to a substance or known physiological condition; E86.0 Dehydration; I25.10 Atherosclerotic heart disease of native coronary artery without angina pectoris; I48.0 Paroxysmal atrial fibrillation; R29.6 Repeated falls; Z79.899 Other long term (current) drug therapy; Z79.01 Long term (current) use of anticoagulants; Z82.49 Family history of ischemic heart disease and other diseases of the circulatory system; Z95.1 Presence of aortocoronary bypass graft; Z95.0 Presence of cardiac pacemaker; Z95.5 Presence of coronary angioplasty implant and graft; Z95.810 Presence of automatic (implantable) cardiac defibrillator; I73.9 Peripheral vascular disease, unspecified; M89.9 Disorder of bone, unspecified; D64.9 Anemia, unspecified; Z87.891 Personal history of nicotine dependence; I50.9 Heart failure, unspecified
CPT/HCPCS: 36415; 70030-TC; 70450; 71010; 83735; 84100; 85025; 87086; 92523; 92526; 93005; 97161; A4663; J7030; J7040

== ENCOUNTER 2016-09-07 10:23 | Inpatient (IN) | payer MEDICARE ==
[~2016-09-07] VITALS: Ht 182.9 cm; Wt 68.5 kg
[~2016-09-07 10:23] MED LIST changes: +ASPI81TA44 PO; +DIVA125C PO; +HYDR-4077 PO; +IPRA0.2S6 NEB; +QUET25TA PO; -TRAZ-144 PO
[2016-09-07] MEDS ORDERED: FERROUS SULFATE PO (11:34)
[2016-09-07] MEDS ORDERED: CLON1PAT TD (11:34)
--- NOTE | 2016-09-07 13:45 | NUR ---
ADMITTED PATIENT FROM SECOND FLOOR MED-[facility] VIA WHEELCHAIR, ACCOMPANIED BY MEGAN/RN. PATIENT IS AWAKE AND ALERT. IN STABLE CONDITION. WITH IV SALINE LOCK OVER LEFT FORE ARM. VS FOLLOWS: T- 98.6, SC-74, RR-14, BP 119/68, AND SPO2 AT 90%. PATIENT REORIENTED ABOUT ROOM AND EQUIPMENT. CALL LIGHT WITHIN REACH. DR. MARTINEZ INFORMED OF ADMISSION. DR. GAMEZ INFORMED OF ADMISSION. ROUTINE ADMISSION CARE RENDERED.
[2016-09-07] MEDS ORDERED: Z GUARD REMEDY PASTE 57 GM TUBE TOP PRN ×2 (14:45→15:00)
[2016-09-07] MEDS ORDERED: FLUTICASONE/SALMETEROL 250/50 INHALER INH SCH (17:30)
[2016-09-07] MEDS: FLUTICASONE/VILANTEROL 1 EACH BLST.W.DEV INH SCH (17:56)
--- NOTE | 2016-09-07 20:02 | NUR ---
Spoke to Dr. Howe regarding patient's medication reconciliation. Dr. Howe is aware of patient meds and verbalized that he already left facility and will reconcile medications as soon as possible. He also verbalized that if we needed any medications before he can reconcile medication, we can go ahead and put it in as an order to give to medication.
[2016-09-07 21:47] VITALS: BP 152/74
[2016-09-07] MEDS ORDERED: CARVEDILOL 12.5 MG TABLET PO SCH (23:45)
[2016-09-07] MEDS ORDERED: ACETAMINOPHEN 325 MG TABLET PO PRN (23:45)
[2016-09-07] MEDS ORDERED: CLONIDINE-TTS 1 PATCH TD SCH (23:45)
[2016-09-07] MEDS ORDERED: IPRATROPIUM BROMIDE 0.5 MG/2.5 ML NEBU NEB SCH (23:45)
[2016-09-07] MEDS ORDERED: NITROGLYCERIN 0.4 MG/TAB BOTTLE SL PRN (23:45)
[2016-09-07] MEDS ORDERED: ALBUTEROL SULFATE 2.5 MG/3 ML NEBU NEB PRN (23:45)
[2016-09-08] MEDS ORDERED: CARVEDILOL 12.5 MG TABLET ONE (01:48)
[2016-09-08] MEDS ORDERED: AMLODIPINE 5 MG TABLET ONE (01:48)
[2016-09-08] MEDS ORDERED: QUETIAPINE FUMARATE 25 MG TABLET ONE (01:49)
[2016-09-08] MEDS: QUETIAPINE FUMARATE 25 MG TABLET PO PRN (01:56)
[2016-09-08] MEDS: AMLODIPINE 5 MG TABLET PO SCH ×3 (01:57→23:45)
--- NOTE | 2016-09-08 06:10 | NUR ---
Patient slept intermittently throughout the night, had no complains of pain or discomfort. Showed no signs of respiratory distress, maintained clean and dry, all needs attended to, will continue to monitor.
[2016-09-08] MEDS ORDERED: PANTOPRAZOLE SODIUM 40 MG TABLET.DR PO ONE (06:56)
[2016-09-08] MEDS: CHOLECALCIFEROL 1,000 UNIT TABLET PO SCH (08:12)
[2016-09-08] MEDS: ALLOPURINOL 100 MG TABLET PO SCH (08:12)
[2016-09-08] MEDS: PATIENT MAY USE OWN MED- MD OK PO SCH ×2 (08:12→16:23)
[2016-09-08] MEDS: hydrALAZINE HCL 50 MG TABLET PO SCH ×2 (08:13→21:36)
[2016-09-08] MEDS: VENLAFAXINE XR 150 MG CAP.SR.24H PO SCH (08:14)
[2016-09-08] MEDS: MONTELUKAST SODIUM 10 MG TABLET PO SCH (08:14)
[2016-09-08] MEDS: FERROUS SULFATE SLOW RELEASE 45 MG (ELEMENTAL) TABEC PO SCH (08:14)
[2016-09-08] MEDS: ASCORBIC ACID 500 MG TABLET PO SCH (08:14)
[2016-09-08] MEDS: DIVALPROEX SPRINKLE 125 MG CAP.SPRINK PO SCH ×3 (08:14→21:31)
[2016-09-08] MEDS: PANTOPRAZOLE SODIUM 40 MG TABLET.DR PO SCH (08:14)
[2016-09-08] MEDS: FLUTICASONE/VILANTEROL 1 EACH BLST.W.DEV INH SCH (08:15)
[2016-09-08 08:18] LABS: BASOPHILS % (AUTO) 0.3 % (0.0-2.0); EOSINOPHILS # (AUTO) 0.5 K/uL (0.0-0.7); EOSINOPHILS % (AUTO) 5.9 % (0.0-7.0); HEMATOCRIT 34.3 % (40-50); HEMOGLOBIN 11.3 G/DL (14.0-18.0); LYMPHOCYTES # (AUTO) 1.6 K/UL (0.8-4.8); LYMPHOCYTES % (AUTO) 18.2 % (20.5-51.5); MEAN CORPUSCULAR HGB CONC 33 g/dL (32.0-37.0); MEAN CORPUSCULAR VOLUME 88.3 FL (82.0-92.0); MONOCYTES # (AUTO) 0.9 K/UL (0.1-1.30); MONOCYTES % (AUTO) 9.6 % (0.0-11.0); NEUTROPHILS # (AUTO) 5.9 K/UL (1.8-8.9); PLATELET COUNT (AUTO) 179 K/UL (150-450); RED BLOOD CELL COUNT(AUTO) 3.89 MIL/UL (4.7-6.1); WHITE BLOOD COUNT (AUTO) 8.9 K/UL (4.0-11.2)
[2016-09-08 08:21] LABS: CARBON DIOXIDE 27 mmol/L (21-32); CHLORIDE 108 mmol/L (98-107); CHOLESTEROL 117 mg/dL (<200); CREATININE 2.1 mg/dL (0.6-1.3); GLUCOSE 81 mg/dL (74-106); HDL CHOLESTEROL 55 mg/dL (40-60); PHOSPHOROUS 3.3 mg/dL (2.5-4.9); POTASSIUM 3.9 mmol/L (3.5-5.1); TRIGLYCERIDES 37 MG/DL (30-150); UREA NITROGEN, BLOOD 48 mg/dL (7-18)
[2016-09-08 08:37] VITALS: BP 148/72
[2016-09-08] MEDS ORDERED: FERROUS SULFATE PO SCH (09:00)
[2016-09-08] MEDS ORDERED: [UNRECOGNIZED DRUG - OTHER] PO SCH (09:00)
[2016-09-08] MEDS ORDERED: DABIGATRAN ETEXILATE MESYLATE 75 MG CAPSULE PO SCH (09:00)
[2016-09-08] MEDS ORDERED: ASCORBIC ACID 500 MG PO SCH (09:00)
[2016-09-08] MEDS ORDERED: FLUTICASONE/SALMETEROL 250/50 INHALER INH SCH (09:00)
--- NOTE | 2016-09-08 10:30 | NUR ---
pt had bp of 162/70 hr 65. pt given hydralazine 25mg for bp >160. will asess for complications.
[2016-09-08] MEDS: hydrALAZINE HCL 25 MG TABLET PO PRN (10:33)
[2016-09-08] MEDS: CARVEDILOL 12.5 MG TABLET PO SCH ×2 (10:33→17:19)
[2016-09-08] MEDS: QUETIAPINE FUMARATE 25 MG TABLET PO SCH ×2 (13:41→16:22)
[2016-09-08] MEDS: ATORVASTATIN 20 MG TABLET PO SCH (21:32)
[2016-09-08] MEDS: DOCUSATE SODIUM 250 MG CAPSULE PO SCH (21:32)
[2016-09-09] MEDS: QUETIAPINE FUMARATE 25 MG TABLET PO PRN ×2 (00:32→23:54)
--- NOTE | 2016-09-09 00:35 | NUR ---
Patient continuously trying to get out of bed and agitated saying that he has to leave. Seroquel given PRN will continue to monitor.
[2016-09-09 01:19] VITALS: BP 159/76
[2016-09-09] MEDS: PANTOPRAZOLE SODIUM 40 MG TABLET.DR PO SCH (06:27)
--- NOTE | 2016-09-09 06:29 | NUR ---
Patient slept well throughout the night, had no complains of pain or discomfort, no signs of respiratory distress. Maintained clean and dry, call light within reach.
[2016-09-09 08:36] VITALS: BP 140/70
[2016-09-09] MEDS: DIVALPROEX SPRINKLE 125 MG CAP.SPRINK PO SCH ×3 (11:08→20:38)
[2016-09-09] MEDS: CHOLECALCIFEROL 1,000 UNIT TABLET PO SCH (11:08)
[2016-09-09] MEDS: FERROUS SULFATE SLOW RELEASE 45 MG (ELEMENTAL) TABEC PO SCH (11:08)
[2016-09-09] MEDS: MONTELUKAST SODIUM 10 MG TABLET PO SCH (11:08)
[2016-09-09] MEDS: CARVEDILOL 12.5 MG TABLET PO SCH ×2 (11:08→17:46)
[2016-09-09] MEDS: ALLOPURINOL 100 MG TABLET PO SCH (11:09)
[2016-09-09] MEDS: hydrALAZINE HCL 50 MG TABLET PO SCH ×2 (11:09→20:38)
[2016-09-09] MEDS: VENLAFAXINE XR 150 MG CAP.SR.24H PO SCH (11:09)
[2016-09-09] MEDS: ASCORBIC ACID 500 MG TABLET PO SCH (11:09)
[2016-09-09] MEDS: AMLODIPINE 5 MG TABLET PO SCH ×2 (11:09→23:30)
[2016-09-09] MEDS: FLUTICASONE/VILANTEROL 1 EACH BLST.W.DEV INH SCH (11:17)
[2016-09-09] MEDS: PATIENT MAY USE OWN MED- MD OK PO SCH ×2 (11:18→17:35)
[2016-09-09] MEDS: QUETIAPINE FUMARATE 25 MG TABLET PO SCH ×2 (15:33→17:34)
--- NOTE | 2016-09-09 18:20 | NUR ---
Patient much improved mental status, speaking in clear slow words. Worked with physical therapy today, walked in roa with FWW. Sat in chair most of all afternoon, did not try to stand by self. D/C's H/L from left forearm. No active bleeding noted from P.W., cleansed and placed folded 2X2 over P.W.,taped in place. came and gave haircut at bedside. Patients eats by self, whole pills given with applesauce, no aspiration noted. Bed alarm on, all needs attended, made comfortable. Will continue to monitor..
[2016-09-09] MEDS: ATORVASTATIN 20 MG TABLET PO SCH (20:38)
[2016-09-09] MEDS: DOCUSATE SODIUM 250 MG CAPSULE PO SCH (20:38)
[2016-09-09 21:29] VITALS: BP 135/65
--- NOTE | 2016-09-09 23:56 | NUR ---
Patient noted to be agitated, throwing things in his room. Very upset trying to climb out of bed stating that he needs to go home. Was on the phone with someone and seemed very agitated with whomever he was talking to . Medication administered as needed, will continue to monitor.
--- NOTE | 2016-09-10 06:56 | NUR ---
Patient slept intermittently throughout the night. Showed no signs of pain or discomfort, no signs of respiratory distress. Maintained clean and dry. Call light within reach.
--- NOTE | 2016-09-10 07:20 | NUR ---
received report from maintenance technician 3rd shift nurse, patient in bed sleeping, bed in low position, side rails up x2.
[2016-09-10 08:00] VITALS: BP 130/64
[2016-09-10] MEDS: PANTOPRAZOLE SODIUM 40 MG TABLET.DR PO SCH (09:32)
[2016-09-10] MEDS: ALLOPURINOL 100 MG TABLET PO SCH (09:32)
[2016-09-10] MEDS: CHOLECALCIFEROL 1,000 UNIT TABLET PO SCH (09:33)
[2016-09-10] MEDS: ASCORBIC ACID 500 MG TABLET PO SCH (09:34)
[2016-09-10] MEDS: MONTELUKAST SODIUM 10 MG TABLET PO SCH (09:34)
[2016-09-10] MEDS: FERROUS SULFATE SLOW RELEASE 45 MG (ELEMENTAL) TABEC PO SCH (09:34)
[2016-09-10] MEDS: hydrALAZINE HCL 50 MG TABLET PO SCH ×2 (09:34→21:36)
[2016-09-10] MEDS: VENLAFAXINE XR 150 MG CAP.SR.24H PO SCH (09:34)
[2016-09-10] MEDS: DIVALPROEX SPRINKLE 125 MG CAP.SPRINK PO SCH ×3 (09:35→21:35)
[2016-09-10] MEDS: CARVEDILOL 12.5 MG TABLET PO SCH ×2 (09:35→17:40)
[2016-09-10] MEDS: FLUTICASONE/VILANTEROL 1 EACH BLST.W.DEV INH SCH (09:36)
[2016-09-10] MEDS: PATIENT MAY USE OWN MED- MD OK PO SCH ×2 (09:36→17:45)
[2016-09-10] MEDS: AMLODIPINE 5 MG TABLET PO SCH ×2 (12:49→23:07)
[2016-09-10] MEDS: QUETIAPINE FUMARATE 25 MG TABLET PO SCH ×2 (14:00→17:40)
--- NOTE | 2016-09-10 18:56 | NUR ---
Sat in chair most of all afternoon, patient ambulated with assistance to the restroom. No active bleeding noted. came and visited with patient. Patients eats by self, whole pills tolerated well, no aspiration noted. Bed alarm on, all needs attended, made comfortable. Will continue to monitor.
[2016-09-10 20:29] VITALS: BP 126/60
[2016-09-10] MEDS: ATORVASTATIN 20 MG TABLET PO SCH (21:35)
[2016-09-10] MEDS: DOCUSATE SODIUM 250 MG CAPSULE PO SCH (21:36)
[2016-09-10] MEDS: QUETIAPINE FUMARATE 25 MG TABLET PO PRN (23:06)
--- NOTE | 2016-09-10 23:09 | NUR ---
Patient agitated at this time, denies any pain or discomfort. Climbing out of bed and indicating he needs to leave and we need to call Noy to pick him up. Medication given PRN, bed alarm on and tended to swiftly. Will continue to monitor.
[2016-09-11] MEDS: PANTOPRAZOLE SODIUM 40 MG TABLET.DR PO SCH (06:00)
--- NOTE | 2016-09-11 06:02 | NUR ---
Patient slept well after the PRN seroquel was given, showed no signs of pain or discomfort. No signs of respiratory distress. Laying comfortably in bed at this time. Verbally able to let needs known. Call light within reach.
[2016-09-11 07:27] LABS: BASOPHILS % (AUTO) 0.4 % (0.0-2.0); EOSINOPHILS # (AUTO) 0.5 K/uL (0.0-0.7); EOSINOPHILS % (AUTO) 6.5 % (0.0-7.0); HEMATOCRIT 31.6 % (40-50); HEMOGLOBIN 10.5 G/DL (14.0-18.0); LYMPHOCYTES # (AUTO) 1.6 K/UL (0.8-4.8); LYMPHOCYTES % (AUTO) 20.7 % (20.5-51.5); MEAN CORPUSCULAR HEMOGLOBIN 29.3 UUG (27.0-31.0); MEAN CORPUSCULAR HGB CONC 33 g/dL (32.0-37.0); MEAN CORPUSCULAR VOLUME 88.1 FL (82.0-92.0); MONOCYTES # (AUTO) 0.7 K/UL (0.1-1.30); MONOCYTES % (AUTO) 9.6 % (0.0-11.0); NEUTROPHILS # (AUTO) 4.8 K/UL (1.8-8.9); NEUTROPHILS % (AUTO) 62.8 % (38.5-71.5); PLATELET COUNT (AUTO) 149 K/UL (150-450); RED BLOOD CELL COUNT(AUTO) 3.59 MIL/UL (4.7-6.1); WHITE BLOOD COUNT (AUTO) 7.6 K/UL (4.0-11.2)
[2016-09-11 07:44] LABS: CARBON DIOXIDE 28 mmol/L (21-32); CHLORIDE 106 mmol/L (98-107); CREATININE 2.4 mg/dL (0.6-1.3); GLUCOSE 80 mg/dL (74-106); MAGNESIUM 2.2 mg/dL (1.8-2.4); PHOSPHOROUS 3.7 mg/dL (2.5-4.9); POTASSIUM 3.8 mmol/L (3.5-5.1); UREA NITROGEN, BLOOD 61 mg/dL (7-18)
[2016-09-11 08:00] VITALS: BP 144/72
--- NOTE | 2016-09-11 08:00 | NUR ---
nsg: received patient laying in bed. a/o x3 . no c/o pain or discomfort this time.
[2016-09-11] MEDS: MONTELUKAST SODIUM 10 MG TABLET PO SCH (08:27)
[2016-09-11] MEDS: FERROUS SULFATE SLOW RELEASE 45 MG (ELEMENTAL) TABEC PO SCH (08:27)
[2016-09-11] MEDS: DIVALPROEX SPRINKLE 125 MG CAP.SPRINK PO SCH ×3 (08:27→20:08)
[2016-09-11] MEDS: CHOLECALCIFEROL 1,000 UNIT TABLET PO SCH (08:27)
[2016-09-11] MEDS: ASCORBIC ACID 500 MG TABLET PO SCH (08:27)
[2016-09-11] MEDS: CARVEDILOL 12.5 MG TABLET PO SCH ×2 (08:27→16:57)
[2016-09-11] MEDS: VENLAFAXINE XR 150 MG CAP.SR.24H PO SCH (08:27)
[2016-09-11] MEDS: hydrALAZINE HCL 50 MG TABLET PO SCH ×2 (08:28→20:11)
[2016-09-11] MEDS: ALLOPURINOL 100 MG TABLET PO SCH (08:29)
[2016-09-11] MEDS: PATIENT MAY USE OWN MED- MD OK PO SCH ×2 (08:42→16:56)
[2016-09-11] MEDS: FLUTICASONE/VILANTEROL 1 EACH BLST.W.DEV INH SCH (08:48)
[2016-09-11 10:27] VITALS: BP 144/72
[2016-09-11] MEDS: AMLODIPINE 5 MG TABLET PO SCH (11:45)
[2016-09-11] MEDS: QUETIAPINE FUMARATE 25 MG TABLET PO SCH ×2 (13:03→16:53)
--- NOTE | 2016-09-11 18:45 | NUR ---
pt had no episodes of confusion. pt given meds as prescribed. pt provided comfort measures. bed alarm on with call light in reach. clutter removed in room. pt had adequate nutrition for dinner. will continue to endorse to assistant shift supervisor nurse.
[2016-09-11 20:00] VITALS: BP 143/66
[2016-09-11] MEDS: ATORVASTATIN 20 MG TABLET PO SCH (20:08)
[2016-09-11] MEDS: DOCUSATE SODIUM 250 MG CAPSULE PO SCH (20:08)
[2016-09-12] MEDS: AMLODIPINE 5 MG TABLET PO SCH ×3 (00:03→23:19)
[2016-09-12 00:17] LABS: *BILIRUBIN,URIN NEGATIVE (NEGATIVE); *BLOOD, URINE NEGATIVE (NEGATIVE); *CLARITY,URINE CLEAR (CLEAR); *COLOR,URINE YELLOW (YELLOW); *KETONES,URINE NEGATIVE (NEGATIVE); *PROTEIN,URINE NEGATIVE (NEGATIVE); *UROBILINOGEN,URINE 0.2 E.U./dl (NORMAL); LEUKOCYTE ESTERASE ,URINE NEGATIVE (NEGATIVE); NITRITE, URINE NEGATIVE (NEGATIVE); UGLUCOSE NEGATIVE (NEGATIVE)
[2016-09-12 00:19] LABS: *URINE TOTAL PROTEIN RANDOM 9.8 mg/dL (<150/24HR)
[2016-09-12 00:28] LABS: BACTERIA,URINE FEW /HPF (NONE SEEN); RBC,URINE NONE SEEN /HPF (0-3); SQUAMOUS EPITHELIAL CELL,UR NONE SEEN /HPF (NONE SEEN); WBC,URINE 0-3 /HPF (0-3)
--- NOTE | 2016-09-12 05:27 | NUR ---
PT SLEPT INTERMITTENTLY, IN NO ACUTE SIGNS OF DISTRESS, AMBULATORY WITH ASSISTANCE, UNSTEADY GAIT, USED QUAD CANE TO GO TO BATHROOM, ALSO USED DIAPER AND URINAL. URINE SAMPLE COLLECTED, SENT TO LAB. SAFETY MAINTAINED THROUGHOUT SHIFT. CALL LIGHT WITHIN REACH.
[2016-09-12] MEDS: PANTOPRAZOLE SODIUM 40 MG TABLET.DR PO SCH (06:12)
[2016-09-12 07:47] LABS: BASOPHILS % (AUTO) 0.5 % (0.0-2.0); EOSINOPHILS # (AUTO) 0.6 K/uL (0.0-0.7); EOSINOPHILS % (AUTO) 6.9 % (0.0-7.0); HEMATOCRIT 34.7 % (40-50); HEMOGLOBIN 11.6 G/DL (14.0-18.0); LYMPHOCYTES # (AUTO) 1.4 K/UL (0.8-4.8); LYMPHOCYTES % (AUTO) 17.2 % (20.5-51.5); MEAN CORPUSCULAR HGB CONC 33 g/dL (32.0-37.0); MEAN CORPUSCULAR VOLUME 86.7 FL (82.0-92.0); MONOCYTES # (AUTO) 0.8 K/UL (0.1-1.30); MONOCYTES % (AUTO) 10.1 % (0.0-11.0); NEUTROPHILS # (AUTO) 5.3 K/UL (1.8-8.9); NEUTROPHILS % (AUTO) 65.3 % (38.5-71.5); PLATELET COUNT (AUTO) 151 K/UL (150-450); RED BLOOD CELL COUNT(AUTO) 3.99 MIL/UL (4.7-6.1); WHITE BLOOD COUNT (AUTO) 8.1 K/UL (4.0-11.2)
[2016-09-12 08:00] VITALS: BP 151/69
[2016-09-12 08:23] LABS: ALANINE AMINOTRANSFERASE 9 U/L (16-63); ALKALINE PHOSPHATASE 81 U/L (50-136); ASPARTATE AMINOTRANSFERASE 17 U/L (15-37); BILIRUBIN,TOTAL 0.4 mg/dL (0.2-1.0); CARBON DIOXIDE 29 mmol/L (21-32); CHLORIDE 106 mmol/L (98-107); CREATININE 2.3 mg/dL (0.6-1.3); GLUCOSE 80 mg/dL (74-106); MAGNESIUM 2.1 mg/dL (1.8-2.4); PHOSPHOROUS 3.9 mg/dL (2.5-4.9); TOTAL PROTEIN, SERUM 6.4 g/dL (6.4-8.2); UREA NITROGEN, BLOOD 63 mg/dL (7-18)
[2016-09-12] MEDS: ASCORBIC ACID 500 MG TABLET PO SCH (09:17)
[2016-09-12] MEDS: DIVALPROEX SPRINKLE 125 MG CAP.SPRINK PO SCH ×3 (09:17→21:11)
[2016-09-12] MEDS: MONTELUKAST SODIUM 10 MG TABLET PO SCH (09:18)
[2016-09-12] MEDS: CHOLECALCIFEROL 1,000 UNIT TABLET PO SCH (09:18)
[2016-09-12] MEDS: hydrALAZINE HCL 50 MG TABLET PO SCH ×2 (09:18→21:10)
[2016-09-12] MEDS: FERROUS SULFATE SLOW RELEASE 45 MG (ELEMENTAL) TABEC PO SCH (09:19)
[2016-09-12] MEDS: CARVEDILOL 12.5 MG TABLET PO SCH ×2 (09:19→18:46)
[2016-09-12] MEDS: VENLAFAXINE XR 150 MG CAP.SR.24H PO SCH (09:20)
[2016-09-12] MEDS: FLUTICASONE/VILANTEROL 1 EACH BLST.W.DEV INH SCH (09:27)
[2016-09-12] MEDS: ALLOPURINOL 100 MG TABLET PO SCH (09:27)
[2016-09-12] MEDS: PATIENT MAY USE OWN MED- MD OK PO SCH ×2 (09:27→18:46)
[2016-09-12 14:07] LABS: VIT D, 25-HYDROXY 50.7 ng/mL (30.0-100.0)
[2016-09-12] MEDS: QUETIAPINE FUMARATE 25 MG TABLET PO SCH ×2 (14:39→18:40)
--- NOTE | 2016-09-12 17:15 | NUR ---
pt seen and requested to have meds held off until 1829. pt is anxious and states that his seems to be getting tired of his visiting.
[2016-09-12] MEDS: hydrALAZINE HCL 25 MG TABLET PO PRN (18:45)
--- NOTE | 2016-09-12 18:51 | NUR ---
pt had bp of 166/88. pt given hydralazine 25mg. pt given meds. will continue to reassess for complications.
--- NOTE | 2016-09-12 19:03 | NUR ---
pt had no signs of distress. pt had no behavioral changes. pt wanted to have meds held for an hour until 1830. pt stated that he does not like to be disturbed. hydralazine was given for bp 166/88. will continue to endorse to technical training specialist.
[2016-09-12 20:00] VITALS: BP 173/74
[2016-09-12] MEDS: ATORVASTATIN 20 MG TABLET PO SCH (21:10)
[2016-09-12] MEDS: DOCUSATE SODIUM 250 MG CAPSULE PO SCH (21:11)
[2016-09-13] MEDS: PANTOPRAZOLE SODIUM 40 MG TABLET.DR PO SCH (06:51)
[2016-09-13 08:19] VITALS: BP 128/69
[2016-09-13] MEDS: FLUTICASONE/VILANTEROL 1 EACH BLST.W.DEV INH SCH (09:00)
[2016-09-13] MEDS: hydrALAZINE HCL 50 MG TABLET PO SCH ×2 (09:27→21:00)
[2016-09-13] MEDS: MONTELUKAST SODIUM 10 MG TABLET PO SCH (09:28)
[2016-09-13] MEDS: ASCORBIC ACID 500 MG TABLET PO SCH (09:28)
[2016-09-13] MEDS: VENLAFAXINE XR 150 MG CAP.SR.24H PO SCH (09:30)
[2016-09-13] MEDS: ALLOPURINOL 100 MG TABLET PO SCH (09:30)
[2016-09-13] MEDS: CARVEDILOL 12.5 MG TABLET PO SCH ×2 (09:30→18:12)
[2016-09-13] MEDS: FERROUS SULFATE SLOW RELEASE 45 MG (ELEMENTAL) TABEC PO SCH (09:30)
[2016-09-13] MEDS: DIVALPROEX SPRINKLE 125 MG CAP.SPRINK PO SCH ×3 (09:30→21:21)
[2016-09-13] MEDS: PATIENT MAY USE OWN MED- MD OK PO SCH ×2 (09:44→18:16)
[2016-09-13] MEDS: CHOLECALCIFEROL 1,000 UNIT TABLET PO SCH (09:44)
[2016-09-13 12:10] LABS: CALCITRIOL VIT D,1,25 DIHYDROX 31.3 pg/mL (19.9-79.3)
[2016-09-13 12:45] VITALS: BP 122/57
[2016-09-13] MEDS: AMLODIPINE 5 MG TABLET PO SCH (12:49)
[2016-09-13] MEDS: QUETIAPINE FUMARATE 25 MG TABLET PO SCH ×2 (14:05→18:12)
--- NOTE | 2016-09-13 14:59 | NUR ---
REHAB TEAM CONFERENCE MEETING 09/13/16
--- NOTE | 2016-09-13 17:01 | NUR ---
PT. PARTICITPATING IN CARE PLAN WITH P.T. AND O.T. AND SPEECH. SLEEPING INTERMITTENTLY THROUGOUT SHIFT. PT. C/O FEELING SLEEPY WHILE WALKING. SPOKE WITH SPOUSE REGARDING ISSUE AND DR. MARTINEZ NOTIFIED. NO NEW ORDERS. IDT THIS AFTERNOON. GOOD APPETITE. VOIDING .
[2016-09-13 20:00] VITALS: BP 125/69
[2016-09-13] MEDS: DOCUSATE SODIUM 250 MG CAPSULE PO SCH (21:00)
[2016-09-13] MEDS: ATORVASTATIN 20 MG TABLET PO SCH (21:24)
--- NOTE | 2016-09-13 22:00 | NUR ---
PT IN NAD; VSS. PT HAS PERIODIC CONFUSION AND NEEDS TO BE REDIRECTED; BED ALARM ON; PT ADVISED TO CALL FOR HELP FOR RESTROOM NEEDS; FALL RISK
[2016-09-14] MEDS: AMLODIPINE 5 MG TABLET PO SCH ×2 (00:07→11:45)
[2016-09-14] MEDS: PANTOPRAZOLE SODIUM 40 MG TABLET.DR PO SCH (07:22)
[2016-09-14 08:13] VITALS: BP 157/83
[2016-09-14] MEDS: hydrALAZINE HCL 50 MG TABLET PO SCH ×2 (08:27→21:00)
[2016-09-14] MEDS: FERROUS SULFATE SLOW RELEASE 45 MG (ELEMENTAL) TABEC PO SCH (08:28)
[2016-09-14] MEDS: CARVEDILOL 12.5 MG TABLET PO SCH ×2 (08:28→18:53)
[2016-09-14] MEDS: CHOLECALCIFEROL 1,000 UNIT TABLET PO SCH (08:29)
[2016-09-14] MEDS: DIVALPROEX SPRINKLE 125 MG CAP.SPRINK PO SCH ×3 (08:29→21:00)
[2016-09-14] MEDS: MONTELUKAST SODIUM 10 MG TABLET PO SCH (08:29)
[2016-09-14] MEDS: VENLAFAXINE XR 150 MG CAP.SR.24H PO SCH (08:29)
[2016-09-14] MEDS: ALLOPURINOL 100 MG TABLET PO SCH (08:29)
[2016-09-14] MEDS: ASCORBIC ACID 500 MG TABLET PO SCH (08:29)
[2016-09-14] MEDS: FLUTICASONE/VILANTEROL 1 EACH BLST.W.DEV INH SCH (08:40)
[2016-09-14] MEDS: PATIENT MAY USE OWN MED- MD OK PO SCH ×2 (09:47→17:18)
[2016-09-14] MEDS: QUETIAPINE FUMARATE 25 MG TABLET PO SCH ×2 (13:07→17:18)
--- NOTE | 2016-09-14 18:39 | NUR ---
pt had an episode of confusion with the . no new orders. pt adhered to medications. witheld a blood pressure med due to decreased blood pressure at noon time. pt had no acute distress. continued to monitor throughout the day. no changes in loc or skin condition. pt provided comfort measures. will continue to monitor pt.
[2016-09-14] MEDS: hydrALAZINE HCL 25 MG TABLET PO PRN (18:53)
--- NOTE | 2016-09-14 18:58 | NUR ---
pt had blood pressure of 159/77. 25 hydralazine given. pt asymptomatic. will continue to reassess
[2016-09-14 20:00] VITALS: BP 151/74
[2016-09-14] MEDS: DOCUSATE SODIUM 250 MG CAPSULE PO SCH (21:01)
[2016-09-14] MEDS: ATORVASTATIN 20 MG TABLET PO SCH (21:01)
[2016-09-15] MEDS: QUETIAPINE FUMARATE 25 MG TABLET PO PRN ×2 (00:15→20:34)
[2016-09-15] MEDS: AMLODIPINE 5 MG TABLET PO SCH ×2 (00:16→12:26)
[2016-09-15 00:18] VITALS: BP 154/73
--- NOTE | 2016-09-15 06:16 | NUR ---
PT SLEPT THROUGH THE NIGHT; VSS; NAD NOTED
[2016-09-15] MEDS: PANTOPRAZOLE SODIUM 40 MG TABLET.DR PO SCH (07:26)
[2016-09-15 08:09] VITALS: BP 151/75
[2016-09-15] MEDS: FLUTICASONE/VILANTEROL 1 EACH BLST.W.DEV INH SCH (08:47)
[2016-09-15] MEDS: ASCORBIC ACID 500 MG TABLET PO SCH (08:48)
[2016-09-15] MEDS: MONTELUKAST SODIUM 10 MG TABLET PO SCH (08:48)
[2016-09-15] MEDS: DIVALPROEX SPRINKLE 125 MG CAP.SPRINK PO SCH ×3 (08:48→20:30)
[2016-09-15] MEDS: PATIENT MAY USE OWN MED- MD OK PO SCH ×2 (08:48→16:07)
[2016-09-15] MEDS: ALLOPURINOL 100 MG TABLET PO SCH (08:49)
[2016-09-15] MEDS: FERROUS SULFATE SLOW RELEASE 45 MG (ELEMENTAL) TABEC PO SCH (08:49)
[2016-09-15] MEDS: CHOLECALCIFEROL 1,000 UNIT TABLET PO SCH (08:49)
[2016-09-15] MEDS: VENLAFAXINE XR 150 MG CAP.SR.24H PO SCH (08:49)
[2016-09-15] MEDS: CARVEDILOL 12.5 MG TABLET PO SCH ×2 (08:57→17:53)
[2016-09-15] MEDS: hydrALAZINE HCL 50 MG TABLET PO SCH ×2 (08:57→20:38)
[2016-09-15] MEDS ORDERED: CLONIDINE-TTS 1 PATCH TD SCH (09:00)
[2016-09-15] MEDS ORDERED: BISACODYL 5 MG TABLET.DR PO PRN (12:45)
[2016-09-15] MEDS: QUETIAPINE FUMARATE 25 MG TABLET PO SCH ×2 (14:11→16:10)
[2016-09-15 20:00] VITALS: BP 148/77
--- NOTE | 2016-09-15 20:00 | NUR ---
RECEIVED PATIENT AWAKE ALERT AND ORIENTED X 2 VERY ANGRY AND AGITATED, YELLING AT STAFF, EASILY COMBATIVE AND RESISTANT TOWARDS STAFF, SEROQUEL 25MG PO GIVEN WITH 2100 MEDS. OFFERED PT SNACKS, FLUIDS AND TOILETING . PT AGREED AND COMPLY WITH ALL.
[2016-09-15] MEDS: DOCUSATE SODIUM 250 MG CAPSULE PO SCH (20:30)
[2016-09-15] MEDS: ATORVASTATIN 20 MG TABLET PO SCH (20:30)
[2016-09-15 20:55] VITALS: BP 148/77
--- NOTE | 2016-09-15 22:30 | NUR ---
PT QUIETLY SLEEPING AT THIS TIME WITH NO FURTHER AGITATION NOTED. VITALS STABLE , NO ACUTE DISTRESS NOTED. WILL CONTINUE TO MONITOR AND WITH PLAN OF CARE. SEROQUEL EFFECTIVE.
[2016-09-16] VITALS: BP 146/71
[2016-09-16] MEDS: AMLODIPINE 5 MG TABLET PO SCH ×2 (00:05→13:38)
[2016-09-16] MEDS: PANTOPRAZOLE SODIUM 40 MG TABLET.DR PO SCH (06:30)
--- NOTE | 2016-09-16 06:55 | NUR ---
Pt slepted well during the night with no further mental status problems noted. Awake, Alert, calm and cooperative with care this morning. Easily arousble and assist pt to bathroom, ambulated with FWW gait unsteady. Returned pt to bed, bed alarm on. Continue with plan of care.
[2016-09-16] MEDS: ASCORBIC ACID 500 MG TABLET PO SCH (08:54)
[2016-09-16] MEDS: CHOLECALCIFEROL 1,000 UNIT TABLET PO SCH (08:54)
[2016-09-16] MEDS: CARVEDILOL 12.5 MG TABLET PO SCH ×2 (08:54→17:52)
[2016-09-16] MEDS: FERROUS SULFATE SLOW RELEASE 45 MG (ELEMENTAL) TABEC PO SCH (08:54)
[2016-09-16] MEDS: MONTELUKAST SODIUM 10 MG TABLET PO SCH (08:55)
[2016-09-16] MEDS: ALLOPURINOL 100 MG TABLET PO SCH (08:55)
[2016-09-16] MEDS: DIVALPROEX SPRINKLE 125 MG CAP.SPRINK PO SCH ×3 (08:56→20:44)
[2016-09-16] MEDS: VENLAFAXINE XR 150 MG CAP.SR.24H PO SCH (08:56)
[2016-09-16] MEDS: PATIENT MAY USE OWN MED- MD OK PO SCH ×2 (08:56→17:52)
[2016-09-16] MEDS: FLUTICASONE/VILANTEROL 1 EACH BLST.W.DEV INH SCH (08:57)
[2016-09-16] MEDS: hydrALAZINE HCL 50 MG TABLET PO SCH ×2 (08:58→20:43)
[2016-09-16 11:46] VITALS: BP 153/43
[2016-09-16] MEDS: QUETIAPINE FUMARATE 25 MG TABLET PO SCH ×2 (13:36→17:52)
[2016-09-16 20:00] VITALS: BP 140/68
[2016-09-16] MEDS: ATORVASTATIN 20 MG TABLET PO SCH (20:44)
[2016-09-16] MEDS: QUETIAPINE FUMARATE 25 MG TABLET PO PRN (20:44)
[2016-09-16] MEDS: DOCUSATE SODIUM 250 MG CAPSULE PO SCH (20:44)
[2016-09-17] MEDS: AMLODIPINE 5 MG TABLET PO SCH ×3 (00:18→23:32)
[2016-09-17] MEDS: PANTOPRAZOLE SODIUM 40 MG TABLET.DR PO SCH (06:54)
[2016-09-17 08:00] VITALS: BP 162/81
[2016-09-17] MEDS: FLUTICASONE/VILANTEROL 1 EACH BLST.W.DEV INH SCH (08:50)
[2016-09-17] MEDS: hydrALAZINE HCL 50 MG TABLET PO SCH ×2 (08:51→20:52)
[2016-09-17] MEDS: VENLAFAXINE XR 150 MG CAP.SR.24H PO SCH (08:52)
[2016-09-17] MEDS: ALLOPURINOL 100 MG TABLET PO SCH (08:52)
[2016-09-17] MEDS: MONTELUKAST SODIUM 10 MG TABLET PO SCH (08:52)
[2016-09-17] MEDS: CHOLECALCIFEROL 1,000 UNIT TABLET PO SCH (08:52)
[2016-09-17] MEDS: ASCORBIC ACID 500 MG TABLET PO SCH (08:52)
[2016-09-17] MEDS: FERROUS SULFATE SLOW RELEASE 45 MG (ELEMENTAL) TABEC PO SCH (08:52)
[2016-09-17] MEDS: CARVEDILOL 12.5 MG TABLET PO SCH ×2 (08:52→17:19)
[2016-09-17] MEDS: DIVALPROEX SPRINKLE 125 MG CAP.SPRINK PO SCH ×3 (08:53→20:51)
[2016-09-17] MEDS: PATIENT MAY USE OWN MED- MD OK PO SCH ×2 (08:54→17:18)
[2016-09-17] MEDS: hydrALAZINE HCL 25 MG TABLET PO PRN (08:59)
[2016-09-17] MEDS: QUETIAPINE FUMARATE 25 MG TABLET PO SCH ×2 (13:58→17:18)
--- NOTE | 2016-09-17 14:48 | NUR ---
HELD OFF BLOOD PRESSURE MEDICATION DUE TO DECREASED BLOOD PRESSURE. PRESSURE FELT WEAK AND HAD A BLOOD PRESSSURE OF 109/62. SAT PT DOWN TO THE SEAT WHEN HE FAILED TO ATTEMPT TO URINATE ON THE TOILET. PT GIVEN CRANBERRY JUICE RECOMMENDED BY STATING THAT THEIR PRIMARY BLACK POWDER GLAZING OPERATOR RECOMMENDED TO ADD SALT ON A DRINK WHEN PT HAS DECREASED BP. WILL CONTINUE TO REASSESS PT FOR COMPLICATIONS.
[2016-09-17 20:27] VITALS: BP 100/59
[2016-09-17] MEDS: ATORVASTATIN 20 MG TABLET PO SCH (20:52)
[2016-09-17] MEDS: DOCUSATE SODIUM 250 MG CAPSULE PO SCH (20:52)
[2016-09-18] MEDS: QUETIAPINE FUMARATE 25 MG TABLET PO PRN (00:44)
--- NOTE | 2016-09-18 00:44 | NUR ---
PATIENT HAS EPISODES OF AGITATION, RESIST CARE, GIVEN SEROQUEL ORDERED, WITH EFFECTIVE RESULT. NO ADVERSE REACTION NOTED.
[2016-09-18] MEDS: PANTOPRAZOLE SODIUM 40 MG TABLET.DR PO SCH (06:19)
--- NOTE | 2016-09-18 06:44 | NUR ---
PATIENT SLEPT MOST OF THE NIGHT, NO SOB NO CHEST PAIN, BP STABLE, ASSISTED WITH TOILETING, NO FURTHER EPISODES OF AGITATION, UP IN THE WHEELCHAIR, NO S/S OF DISTRESS.
[2016-09-18 07:42] VITALS: BP 144/74
[2016-09-18] MEDS: FLUTICASONE/VILANTEROL 1 EACH BLST.W.DEV INH SCH (08:34)
[2016-09-18] MEDS: VENLAFAXINE XR 150 MG CAP.SR.24H PO SCH (08:34)
[2016-09-18] MEDS: MONTELUKAST SODIUM 10 MG TABLET PO SCH (08:35)
[2016-09-18] MEDS: CARVEDILOL 12.5 MG TABLET PO SCH ×2 (08:35→17:50)
[2016-09-18] MEDS: hydrALAZINE HCL 50 MG TABLET PO SCH ×2 (08:35→21:45)
[2016-09-18] MEDS: ASCORBIC ACID 500 MG TABLET PO SCH (08:36)
[2016-09-18] MEDS: CHOLECALCIFEROL 1,000 UNIT TABLET PO SCH (08:36)
[2016-09-18] MEDS: DIVALPROEX SPRINKLE 125 MG CAP.SPRINK PO SCH ×3 (08:36→21:43)
[2016-09-18] MEDS: FERROUS SULFATE SLOW RELEASE 45 MG (ELEMENTAL) TABEC PO SCH (08:36)
[2016-09-18] MEDS: ALLOPURINOL 100 MG TABLET PO SCH (08:37)
[2016-09-18] MEDS: PATIENT MAY USE OWN MED- MD OK PO SCH ×2 (08:37→17:50)
[2016-09-18] MEDS: AMLODIPINE 5 MG TABLET PO SCH ×2 (13:09→23:45)
[2016-09-18] MEDS: QUETIAPINE FUMARATE 25 MG TABLET PO SCH ×2 (13:09→17:53)
--- NOTE | 2016-09-18 19:06 | NUR ---
pt ahd no signs of confusion during shift. pt is stable and no complications noted. blood pressure controlled with medications. pt ate adequately and participated in therapy. will continue to endorse medications when confusion starts.
--- NOTE | 2016-09-18 19:30 | NUR ---
PATIENT IN BED, NO SOB NO CHEST PAIN NOTED, ASSISTED WITH TOILETING, WITH EPISODE OF REFUSING MEDICATIONS, NEEDS LOTS OF ENCOURAGEMENT JUST TO TAKE HIS MEDICATIONS. CONT TO MONITOR, FREQUENT VISUAL CHECK DONE, BED ALARM WAS ACTIVATED FOR SAFETY.
[2016-09-18 20:28] VITALS: BP 124/67
[2016-09-18] MEDS: ATORVASTATIN 20 MG TABLET PO SCH (21:44)
[2016-09-18] MEDS: DOCUSATE SODIUM 250 MG CAPSULE PO SCH (21:44)
[2016-09-19] MEDS: QUETIAPINE FUMARATE 25 MG TABLET PO PRN ×2 (00:45→23:06)
--- NOTE | 2016-09-19 01:00 | NUR ---
PATIENT HAS EPISODES OF AGITATION, TRIES TO GET UP FROM BED WITHOUT ASSISTANCE, GETS EASILY IRRITATED, ASSESS FOR PAIN, AND TOILETING, PATIENT URINATE ON THE URINAL AND ON DIAPER. NO COMPLAIN OF PAIN AT THIS TIME. GIVEN SEROQUEL 25MG PO FOR AGITATION, AND RESTLESSNESS, TRIES TO GET UP WITHOUT ASSISTANCE, RISK FOR FALL, BED ALARM ACTIVATED, FREQUENT VISUAL CHECK WAS DONE.
--- NOTE | 2016-09-19 05:51 | NUR ---
PATIENT SLEPT MOST OF THE NIGHT, USES URINAL ALSO AND DIAPER FOR BLADDER AND BOWEL INCONTINENT. NO COMPLAIN OF PAIN NOTED AT THIS TIME, PATIENT STILL HAS EPISODES OF AGITATION, REFUSED SOME MEDICATIONS, FREQUENT VISUAL CHECK DONE, BED ALARM WAS TURN ON.
[2016-09-19] MEDS: PANTOPRAZOLE SODIUM 40 MG TABLET.DR PO SCH (06:26)
[2016-09-19 07:10] LABS: BASOPHILS % (AUTO) 0.4 % (0.0-2.0); EOSINOPHILS # (AUTO) 0.4 K/uL (0.0-0.7); EOSINOPHILS % (AUTO) 5.1 % (0.0-7.0); HEMATOCRIT 33.3 % (40-50); LYMPHOCYTES # (AUTO) 1.5 K/UL (0.8-4.8); LYMPHOCYTES % (AUTO) 21.9 % (20.5-51.5); MEAN CORPUSCULAR HEMOGLOBIN 29.2 UUG (27.0-31.0); MEAN CORPUSCULAR HGB CONC 33 g/dL (32.0-37.0); MEAN CORPUSCULAR VOLUME 88.7 FL (82.0-92.0); MONOCYTES # (AUTO) 0.8 K/UL (0.1-1.30); MONOCYTES % (AUTO) 11.2 % (0.0-11.0); NEUTROPHILS # (AUTO) 4.3 K/UL (1.8-8.9); NEUTROPHILS % (AUTO) 61.4 % (38.5-71.5); PLATELET COUNT (AUTO) 133 K/UL (150-450); RED BLOOD CELL COUNT(AUTO) 3.76 MIL/UL (4.7-6.1)
[2016-09-19 07:52] LABS: CARBON DIOXIDE 30 mmol/L (21-32); CHLORIDE 106 mmol/L (98-107); CREATININE 2.5 mg/dL (0.6-1.3); GLUCOSE 80 mg/dL (74-106); MAGNESIUM 2.3 mg/dL (1.8-2.4); PHOSPHOROUS 3.6 mg/dL (2.5-4.9); POTASSIUM 4.3 mmol/L (3.5-5.1); UREA NITROGEN, BLOOD 60 mg/dL (7-18)
[2016-09-19 08:00] VITALS: BP 153/77
[2016-09-19] MEDS: CARVEDILOL 12.5 MG TABLET PO SCH ×3 (08:00→18:18)
[2016-09-19] MEDS: MONTELUKAST SODIUM 10 MG TABLET PO SCH (08:24)
[2016-09-19] MEDS: hydrALAZINE HCL 50 MG TABLET PO SCH ×3 (08:24→20:53)
[2016-09-19] MEDS: VENLAFAXINE XR 150 MG CAP.SR.24H PO SCH (08:25)
[2016-09-19] MEDS: FERROUS SULFATE SLOW RELEASE 45 MG (ELEMENTAL) TABEC PO SCH (08:25)
[2016-09-19] MEDS: DIVALPROEX SPRINKLE 125 MG CAP.SPRINK PO SCH ×3 (08:25→20:51)
[2016-09-19] MEDS: ASCORBIC ACID 500 MG TABLET PO SCH (08:25)
[2016-09-19] MEDS: CHOLECALCIFEROL 1,000 UNIT TABLET PO SCH (08:25)
[2016-09-19] MEDS: ALLOPURINOL 100 MG TABLET PO SCH (08:26)
[2016-09-19] MEDS: PATIENT MAY USE OWN MED- MD OK PO SCH ×2 (08:29→17:07)
[2016-09-19] MEDS: FLUTICASONE/VILANTEROL 1 EACH BLST.W.DEV INH SCH (08:29)
[2016-09-19] MEDS: AMLODIPINE 5 MG TABLET PO SCH ×2 (12:49→23:10)
[2016-09-19] MEDS: QUETIAPINE FUMARATE 25 MG TABLET PO SCH ×2 (13:58→16:51)
--- NOTE | 2016-09-19 17:24 | NUR ---
Patient had periods of confusion, no hostile episodes today. Co-operated with therapy. Tolerating meals usually eats and drinks 100%. Took all scheduled medications without incidence. All needs attended, made comfortable. Incontinent, diapered, had BM today. Refused shower, stated maybe tomorrow. Denies any pain/discomfort, encouraged to call for any assistance, call light within hand reach.
--- NOTE | 2016-09-19 19:30 | NUR ---
RECEIVED PATIENT AWAKE, ALERT, AND ORIENTED ONLY TO NAME. REORIENTED FREQUENTLY. PATIENT IS COOPERATIVE WITH CARE AND TREATMENTS AT THIS TIME. NO C/O PAIN OR HEADACHE, OR OTHER COMPLAINTS. REFUSES PM SNACK. INCONTINENT OF URINE. SKIN CLEANED AND KEPT DRY. DIAPER CHANGED.CALL LIGHT WITHIN REACH AAT. BED ALARM PLACED ON AAT. CONSISTENT OBSERVATION OF PATIENT TO BE PROACTIVE IN PREVENTION OF FALLS.
[2016-09-19 20:00] VITALS: BP 151/74
[2016-09-19] MEDS: ATORVASTATIN 20 MG TABLET PO SCH (20:52)
[2016-09-19] MEDS: DOCUSATE SODIUM 250 MG CAPSULE PO SCH (20:52)
--- NOTE | 2016-09-19 23:00 | NUR ---
PATIENT IS VERBALIZING WORDS OF AGITATION. TRYING TO GET OOB WITHOUT HELP. BED ALARM CONTINUES TO BE ON.. MEDICATED WITH PRN SEROQUEL PO.
[2016-09-20 05:00] VITALS: BP 142/78
--- NOTE | 2016-09-20 06:00 | NUR ---
SLEPT WELL AND WITHOUT PERIODS OF AGITATION AFTER HS PRN SEROQUEL WAS TAKEN. BPS IMPROVED THIS MORNING. NO C/O PAIN OR RESPIRATORY DISTRESS ON ROOM AIR. KEPT CLEAN AND DRY WITH DIAPERS CHANGED OF INCONTINENT URINE X 3. SKIN INTEGRITY MAINTAINED WITHOUT OVERT SIGNS OF BREAKDOWN. CALL LIGHT WITHIN REACH. BED ALARM ON AAT. APPEARS IN NAD THIS MORNING.
[2016-09-20] MEDS: PANTOPRAZOLE SODIUM 40 MG TABLET.DR PO SCH (06:14)
[2016-09-20] MEDS: CARVEDILOL 12.5 MG TABLET PO SCH (07:56)
--- NOTE | 2016-09-20 08:31 | NUR ---
Patient awake, eating breakfast. Tolerated breakfast and medications well. Not in any form of distress. No complaints of pain or discomfort. Alert and oriented x3. For possible discharge today. Patient and aware of possible discharge.
[2016-09-20 08:32] VITALS: BP 143/76
[2016-09-20] MEDS: VENLAFAXINE XR 150 MG CAP.SR.24H PO SCH (08:47)
[2016-09-20] MEDS: FERROUS SULFATE SLOW RELEASE 45 MG (ELEMENTAL) TABEC PO SCH (08:47)
[2016-09-20] MEDS: hydrALAZINE HCL 50 MG TABLET PO SCH (08:47)
[2016-09-20] MEDS: DIVALPROEX SPRINKLE 125 MG CAP.SPRINK PO SCH (08:48)
[2016-09-20] MEDS: ASCORBIC ACID 500 MG TABLET PO SCH (08:48)
[2016-09-20] MEDS: MONTELUKAST SODIUM 10 MG TABLET PO SCH (08:48)
[2016-09-20] MEDS: CHOLECALCIFEROL 1,000 UNIT TABLET PO SCH (08:48)
[2016-09-20] MEDS: PATIENT MAY USE OWN MED- MD OK PO SCH (08:49)
[2016-09-20] MEDS: FLUTICASONE/VILANTEROL 1 EACH BLST.W.DEV INH SCH (08:51)
[2016-09-20] MEDS: ALLOPURINOL 100 MG TABLET PO SCH (08:54)
[2016-09-20 11:56] VITALS: BP 115/60
[2016-09-20] MEDS: AMLODIPINE 5 MG TABLET PO SCH (11:56)
--- NOTE | 2016-09-20 14:00 | NUR ---
Received telephone order from Dr. Howe for medication reconciliation for discharge. Informed [facility] pharmacy and hospital pharmacy. Medication Education done by Johanna, Pharmacist.
[2016-09-20] MEDS: QUETIAPINE FUMARATE 25 MG TABLET PO SCH (14:06)
--- NOTE | 2016-09-20 15:30 | NUR ---
Instructed , Jia to give medications as prescribed and maintain a cardiac diet. Education materials provided. Instructed to follow up with [facility] health and Dr. Jason for check up. Provided front wheel walker to bring home as ordered. Went home in stable condition, awake alert and oriented x3. No s/s of distress. No complaints of discomfort. Went home accompanied by , via wheel chair in private car.
== END 2016-09-20 16:08 | disposition home health service (06) | DRG 57 ==
PROVIDERS: ADMIT Physical Medicine & Rehabilitation Pain Medicine; ATTEND Physical Medicine & Rehabilitation Pain Medicine
DX: I69.898 Other sequelae of other cerebrovascular disease (principal); I13.0 Hypertensive heart and chronic kidney disease with heart failure and stage 1 through stage 4 chronic kidney disease, or unspecified chronic kidney disease; I50.32 Chronic diastolic (congestive) heart failure; N18.4 Chronic kidney disease, stage 4 (severe); N17.9 Acute kidney failure, unspecified; F33.0 Major depressive disorder, recurrent, mild; R53.1 Weakness; R29.6 Repeated falls; Z91.81 History of falling; J44.9 Chronic obstructive pulmonary disease, unspecified; Z95.810 Presence of automatic (implantable) cardiac defibrillator; I25.10 Atherosclerotic heart disease of native coronary artery without angina pectoris; D64.9 Anemia, unspecified; F01.50 Vascular dementia, unspecified severity, without behavioral disturbance, psychotic disturbance, mood disturbance, and anxiety; R41.0 Disorientation, unspecified; E78.5 Hyperlipidemia, unspecified; Z87.891 Personal history of nicotine dependence; I48.0 Paroxysmal atrial fibrillation; M10.9 Gout, unspecified; Z95.0 Presence of cardiac pacemaker; Z95.1 Presence of aortocoronary bypass graft; Z95.5 Presence of coronary angioplasty implant and graft; H26.9 Unspecified cataract; R26.9 Unspecified abnormalities of gait and mobility; R41.82 Altered mental status, unspecified; R90.82 White matter disease, unspecified; I25.2 Old myocardial infarction
CPT/HCPCS: 36415; 70030-TC; 71010; 82306; 82652; 83735; 83970; 84100; 84156; 84300; 85025; 92523; 92526; 97110; 97112; 97116; 97161; 97530; 97535; A4663

== ENCOUNTER 2016-09-24 10:12 | Inpatient (IN) | payer MEDICARE ==
[~2016-09-24] VITALS: Ht 177.8 cm; Wt 68.0 kg
[~2016-09-24 10:12] MED LIST changes: -ASPI81TA44 PO; +CLON1PAT TD; +FERROUS SULFATE PO; -IRON PO
[2016-09-24] MEDS ORDERED: TDAP DIPH,PERTUSS,TET VAC/PF 0.5 ML DISP.SYRIN IM ONE ×2 (10:30→10:50)
[2016-09-24 10:46] LABS: BASOPHILS # (AUTO) 0.1 K/uL (0.0-8.0); BASOPHILS % (AUTO) 0.8 % (0.0-2.0); EOSINOPHILS # (AUTO) 0.5 K/uL (0.0-0.7); EOSINOPHILS % (AUTO) 6.2 % (0.0-7.0); HEMATOCRIT 35.2 % (40-50); HEMOGLOBIN 11.6 G/DL (14.0-18.0); LYMPHOCYTES # (AUTO) 1.1 K/UL (0.8-4.8); LYMPHOCYTES % (AUTO) 13.9 % (20.5-51.5); MEAN CORPUSCULAR HEMOGLOBIN 28.9 UUG (27.0-31.0); MEAN CORPUSCULAR HGB CONC 33 g/dL (32.0-37.0); MEAN CORPUSCULAR VOLUME 87.6 FL (82.0-92.0); MONOCYTES # (AUTO) 0.7 K/UL (0.1-1.30); MONOCYTES % (AUTO) 9.1 % (0.0-11.0); NEUTROPHILS # (AUTO) 5.4 K/UL (1.8-8.9); PLATELET COUNT (AUTO) 129 K/UL (150-450); RED BLOOD CELL COUNT(AUTO) 4.02 MIL/UL (4.7-6.1); WHITE BLOOD COUNT (AUTO) 7.8 K/UL (4.0-11.2)
[2016-09-24 10:50] LABS: CARBON DIOXIDE 31 mmol/L (21-32); CHLORIDE 100 mmol/L (98-107); CREATININE 2.2 mg/dL (0.6-1.3); GLUCOSE 90 mg/dL (74-106); POTASSIUM 4.5 mmol/L (3.5-5.1); UREA NITROGEN, BLOOD 57 mg/dL (7-18)
[2016-09-24 10:56] LABS: ALANINE AMINOTRANSFERASE 17 U/L (16-63); ALKALINE PHOSPHATASE 80 U/L (50-136); ASPARTATE AMINOTRANSFERASE 29 U/L (15-37); BILIRUBIN,DIRECT 0.1 mg/dL (0.0-0.2); BILIRUBIN,TOTAL 0.5 mg/dL (0.2-1.0)
--- NOTE | 2016-09-24 12:24 | NUR ---
pt voided 350 ml in the urinal
--- NOTE | 2016-09-24 12:47 | NUR ---
2gm na hospital tray at bedside. pt at bedside to help the pt.
--- NOTE | 2016-09-24 13:27 | NUR ---
pt voided in the urinal, 250 ml
--- NOTE | 2016-09-24 14:00 | NUR ---
pt transfered to floor in stable condition
[2016-09-24 14:55] VITALS: BP 160/84
[2016-09-24] MEDS ORDERED: IPRATROPIUM BROMIDE 0.5 MG/2.5 ML NEBU NEB PRN (16:30)
[2016-09-24] MEDS ORDERED: ALBUTEROL SULFATE 2.5 MG/3 ML NEBU NEB PRN (16:30)
[2016-09-24] MEDS ORDERED: ACETAMINOPHEN 325 MG TABLET PO PRN (16:30)
[2016-09-24] MEDS ORDERED: ACETAMINOPHEN 650 MG SUPP.RECT RC PRN (16:30)
[2016-09-24] MEDS ORDERED: CARVEDILOL 12.5 MG TABLET PO SCH (16:30)
[2016-09-24] MEDS ORDERED: NITROGLYCERIN 0.4 MG/TAB BOTTLE SL PRN (16:30)
[2016-09-24] MEDS ORDERED: ONDANSETRON 4 MG/2 ML VIAL IV PRN (16:30)
[2016-09-24] MEDS ORDERED: hydrALAZINE HCL 25 MG TABLET PO PRN (16:30)
[2016-09-24] MEDS ORDERED: QUETIAPINE FUMARATE 25 MG TABLET PO PRN (16:30)
[2016-09-24] MEDS ORDERED: ALBUTEROL SULFATE 2.5 MG/ 0.5 ML NEBU NEB PRN (16:45)
[2016-09-24] MEDS: AMLODIPINE 5 MG TABLET PO SCH ×2 (17:10→20:22)
[2016-09-24] MEDS: DIVALPROEX SPRINKLE 125 MG CAP.SPRINK PO SCH ×2 (17:10→20:22)
[2016-09-24] MEDS: CARVEDILOL 25 MG TABLET PO SCH (17:10)
[2016-09-24] MEDS ORDERED: CLONIDINE-TTS 1 PATCH TD SCH (18:00)
--- NOTE | 2016-09-24 18:30 | NUR ---
Pt admitted to tele. PT snr on 80's. Jia (H) [phone] (C) [phone] states that pt did not take any medications from home. Last B/P SBP is 160 - gave first dose for Norvasc unscheduled. Right arm bruising and skin tare on left FA/wrist area with steri strips. Pt becoming more confused. Pt is in no acute distress. Pts vaccines for PNM uptodate. Fall precaution implemented - bed alarm on and pt near nursing station. Call light is within reach.
[2016-09-24] MEDS: DABIGATRAN ETEXILATE MESYLATE 75 MG CAPSULE PO SCH (18:38)
--- NOTE | 2016-09-24 19:35 | NUR ---
RES IN BED, RESP IS EVEN AND UNLABORED. NO ACUTE DISTRESS. NO C/O PAIN OR DISCOMFORT AT THIS TIME. FALL PRECAUTION RENDERED AND BED ALARM ON. CALL LIGHT WITH IN REACH. WILL CONT TO MONITOR.
[2016-09-24] MEDS: DOCUSATE SODIUM 100 MG CAPSULE PO SCH (20:22)
[2016-09-24] MEDS: ATORVASTATIN 20 MG TABLET PO SCH (20:22)
[2016-09-24 20:41] VITALS: BP 135/63
[2016-09-24] MEDS ORDERED: FLUTICASONE/SALMETEROL 250/50 INHALER INH SCH (21:00)
[2016-09-24] MEDS ORDERED: DOCUSATE SODIUM 250 MG CAPSULE PO SCH (21:00)
[2016-09-24] MEDS ORDERED: hydrALAZINE HCL 50 MG TABLET PO SCH (22:00)
[2016-09-24] MEDS: hydrALAZINE HCL 25 MG TABLET PO SCH (22:09)
[2016-09-25 00:12] VITALS: BP 174/78
[2016-09-25 04:11] VITALS: BP 154/74
[2016-09-25] MEDS: hydrALAZINE HCL 25 MG TABLET PO SCH ×3 (05:23→21:49)
--- NOTE | 2016-09-25 05:57 | NUR ---
RES IN BED, ASLEEP. RESP IS EVEN AND UNLABORED. NO ACUTE DISTRESS. ALL DUE MEDS GIVEN ORDERED AND TOLERATED. FALL PRECAUTIONS IN PLACE. BED ALARM ON. CALL LIGHT WITH IN REACH.
[2016-09-25] MEDS: PANTOPRAZOLE SODIUM 40 MG TABLET.DR PO SCH (06:04)
[2016-09-25 06:54] LABS: BASOPHILS % (AUTO) 0.3 % (0.0-2.0); EOSINOPHILS # (AUTO) 0.4 K/uL (0.0-0.7); EOSINOPHILS % (AUTO) 4.8 % (0.0-7.0); HEMATOCRIT 34.3 % (40-50); HEMOGLOBIN 11.2 G/DL (14.0-18.0); LYMPHOCYTES # (AUTO) 1.6 K/UL (0.8-4.8); MEAN CORPUSCULAR HEMOGLOBIN 28.4 UUG (27.0-31.0); MEAN CORPUSCULAR HGB CONC 33 g/dL (32.0-37.0); MONOCYTES % (AUTO) 11.2 % (0.0-11.0); NEUTROPHILS # (AUTO) 5.9 K/UL (1.8-8.9); NEUTROPHILS % (AUTO) 65.7 % (38.5-71.5); PLATELET COUNT (AUTO) 149 K/UL (150-450); RED BLOOD CELL COUNT(AUTO) 3.94 MIL/UL (4.7-6.1); WHITE BLOOD COUNT (AUTO) 8.9 K/UL (4.0-11.2)
[2016-09-25 07:18] LABS: ALANINE AMINOTRANSFERASE 13 U/L (16-63); ALKALINE PHOSPHATASE 76 U/L (50-136); ASPARTATE AMINOTRANSFERASE 18 U/L (15-37); BILIRUBIN,TOTAL 0.4 mg/dL (0.2-1.0); CARBON DIOXIDE 28 mmol/L (21-32); CHLORIDE 105 mmol/L (98-107); CREATININE 1.9 mg/dL (0.6-1.3); GLUCOSE 106 mg/dL (74-106); TOTAL PROTEIN, SERUM 6.5 g/dL (6.4-8.2); UREA NITROGEN, BLOOD 51 mg/dL (7-18)
--- NOTE | 2016-09-25 08:00 | NUR ---
RECEIVED PATIENT IN BED AWAKE CONFUSED AND DISORIENTED STATING THAT THIS MACHINE FORMER SHOULD GET OUT OF HIS HOUSE REMINDED HIM THAT HE IS IN THE HOSPITAL AND THAT I AM HIS NURSE BUT DOES NOT SEEM TO BELIEVE WHAT I JUST TOLD HIM WILL ALL NEEDS ANTICIPATED AND SATISFIED AND WILL CONTINUE TO OBSERVE AND REORIENT PATIENT NEEDED
[2016-09-25] MEDS: FERROUS SULFATE SLOW RELEASE 45 MG (ELEMENTAL) TABEC PO SCH (08:29)
[2016-09-25] MEDS: VENLAFAXINE XR 150 MG CAP.SR.24H PO SCH (08:30)
[2016-09-25] MEDS: DIVALPROEX SPRINKLE 125 MG CAP.SPRINK PO SCH ×3 (08:30→21:48)
[2016-09-25] MEDS: CARVEDILOL 25 MG TABLET PO SCH ×2 (08:30→17:00)
[2016-09-25] MEDS: ASCORBIC ACID 500 MG TABLET PO SCH (08:30)
[2016-09-25] MEDS: CHOLECALCIFEROL 1,000 UNIT TABLET PO SCH (08:30)
[2016-09-25] MEDS: ALLOPURINOL 100 MG TABLET PO SCH (08:30)
[2016-09-25] MEDS: AMLODIPINE 5 MG TABLET PO SCH ×2 (08:31→21:48)
[2016-09-25] MEDS: FLUTICASONE/VILANTEROL 1 EACH BLST.W.DEV INH SCH (08:31)
[2016-09-25] MEDS: DABIGATRAN ETEXILATE MESYLATE 75 MG CAPSULE PO SCH ×2 (08:38→16:40)
[2016-09-25] MEDS ORDERED: ASCORBIC ACID 500 MG PO SCH (09:00)
[2016-09-25] MEDS ORDERED: FERROUS SULFATE PO SCH (09:00)
[2016-09-25] MEDS ORDERED: [UNRECOGNIZED DRUG - OTHER] PO SCH (09:00)
[2016-09-25 11:58] VITALS: BP 98/56
[2016-09-25] MEDS: QUETIAPINE FUMARATE 25 MG TABLET PO SCH (13:37)
--- NOTE | 2016-09-25 13:37 | NUR ---
ATTEMPTED TO CHECK PATIENTS BLOOD PRESSURE IN OTHER TO GIVE HIM HIS DUE MEDICATIONS BUT HE REFUSED TO HAVE HIS BLOOD PRESSURE CHECK THEN I ATTEMPTED TO GIVE HIS HIS DUE SERROQUEL AND HE STATED NO PILLS WILL NOT CHANGE HIS MIND NO KVNG WHAT.PATIENTS RIGHT TO REFUSE RESPECTED WILL CONTINUE TO OBSERVE.
[2016-09-25 16:00] VITALS: BP 156/71
[2016-09-25] MEDS: MONTELUKAST SODIUM 10 MG TABLET PO SCH (17:00)
--- NOTE | 2016-09-25 17:00 | NUR ---
PATIENT REMAINS CONFUSED AND DISORIENTED DIFFICULTY GIVING HIM HIS DUE MEDICATIONS MADE COMFORTABLE AND WILL OBSERVE.
--- NOTE | 2016-09-25 18:32 | NUR ---
PATIENTS AND SON HERE AT HIS BEDSIDE VISITING MORE CALMER AT THIS TIME.
--- NOTE | 2016-09-25 19:00 | NUR ---
PATIENT AWAKE, VERBALLY RESPONSIVE, RYTHM PACING AT THIS TIME, DENIES PAIN, NO SOB NO CHEST PAIN, CALL LIGHT WITHIN REACH. CONT TO MONITOR.
[2016-09-25 20:00] VITALS: BP 155/69
[2016-09-25] MEDS: ATORVASTATIN 20 MG TABLET PO SCH (21:47)
[2016-09-25] MEDS: DOCUSATE SODIUM 100 MG CAPSULE PO SCH (21:47)
[2016-09-26] VITALS: BP 159/73
--- NOTE | 2016-09-26 01:00 | NUR ---
PATIENT HAS ELEVATED, BP GIVEN APRESOLINE 25MG ORDERED. WITH EFFECTIVE RESULTS.
[2016-09-26 04:00] VITALS: BP 139/63
[2016-09-26] MEDS: PANTOPRAZOLE SODIUM 40 MG TABLET.DR PO SCH (06:01)
[2016-09-26] MEDS: hydrALAZINE HCL 25 MG TABLET PO SCH ×3 (06:05→22:00)
--- NOTE | 2016-09-26 07:06 | NUR ---
PATIENT AWAKE VERBALLY RESPONSIVE, NO SOB NO CHEST PAIN NOTED, RYTHM PACING, NO COMPLAIN OF PAIN, BP STABLE.
--- NOTE | 2016-09-26 08:30 | NUR ---
RECEIVED PATIENT IN BED AWAKE ALERT AND VERBALLY RESPONSIVE STATED THAT HE SLEPT BETTER LAST NITE COMPLIANT WITH MEDICATIONS AND CARE NO SHOTNESS OF BREATH AT THIS TIME REMAIN ON O2 ORDERED NOT IN DISTRESS.
[2016-09-26] MEDS: VENLAFAXINE XR 150 MG CAP.SR.24H PO SCH (09:53)
[2016-09-26] MEDS: ALLOPURINOL 100 MG TABLET PO SCH (09:53)
[2016-09-26] MEDS: DABIGATRAN ETEXILATE MESYLATE 75 MG CAPSULE PO SCH ×2 (09:53→16:23)
[2016-09-26] MEDS: FLUTICASONE/VILANTEROL 1 EACH BLST.W.DEV INH SCH (09:54)
[2016-09-26] MEDS: CHOLECALCIFEROL 1,000 UNIT TABLET PO SCH (09:54)
[2016-09-26] MEDS: FERROUS SULFATE SLOW RELEASE 45 MG (ELEMENTAL) TABEC PO SCH (09:54)
[2016-09-26] MEDS: DIVALPROEX SPRINKLE 125 MG CAP.SPRINK PO SCH ×3 (09:54→22:10)
[2016-09-26] MEDS: AMLODIPINE 5 MG TABLET PO SCH ×2 (10:00→21:00)
[2016-09-26] MEDS: CARVEDILOL 25 MG TABLET PO SCH ×2 (10:00→17:27)
[2016-09-26] MEDS: ASCORBIC ACID 500 MG TABLET PO SCH (10:07)
[2016-09-26 11:21] VITALS: BP 137/65
--- NOTE | 2016-09-26 13:07 | NUR ---
DR BLOOD STATED THAT HE IS PLANNING TO DISCHARGE PATIENT TO [facility] TODAY BUT ACCORDING TO THE FINANCIAL AUDITOR THE PATIENTS WANTS HIM TO BE DISCHARGE TO ACUTE REHAB BUT ACUTE REHAB DID NOT ACCEPT HIM SO DR BLOOD WILL CALL AND SPEAK TO THE PATIENTS BEFORE DISCHARGING HIM TODAY.
--- NOTE | 2016-09-26 13:17 | NUR ---
PICKED UP BY BED TO RADIOLOGY FOR CT HEAD ORDERED.
[2016-09-26] MEDS: QUETIAPINE FUMARATE 25 MG TABLET PO SCH (13:43)
[2016-09-26 15:07] VITALS: BP 111/63
--- NOTE | 2016-09-26 16:02 | NUR ---
DR BLOOD AND THE PUBLISHING SYSTEMS ANALYST SPOKE WITH THE PATIENTS AND SON RE DISCHARGE PLANNING FOR TOMORROW TO THE SNF.
--- NOTE | 2016-09-26 16:54 | NUR ---
PATIENT IS RESTING WITH NO DISTRESS AT THIS TIME.MADE COMFORTABLE.
[2016-09-26] MEDS: MONTELUKAST SODIUM 10 MG TABLET PO SCH (17:26)
--- NOTE | 2016-09-26 18:00 | NUR ---
PATIENT IS VERY CONFUSED AND COMBATIVE AT THIS TIME REFUSED TO EAT HIS DINNER BUT HIS AND SON WAS HERE EARLIER AND BROUGHT HIM SOME FOOD FROM HOME.
--- NOTE | 2016-09-26 19:10 | NUR ---
PATIENT IN BED AWAKE BUT FORGETFUL, PATIENT HAS EPISODE OF AGITATION, REFUSED CARE, NEEDS LOTS OF ENCOURAGEMENT BEFORE HE TAKES HIS MEDICATION, DENIES PAIN AT THIS TIME.
[2016-09-26 20:00] VITALS: BP 99/58
[2016-09-26] MEDS: ATORVASTATIN 20 MG TABLET PO SCH (22:09)
[2016-09-26] MEDS: DOCUSATE SODIUM 100 MG CAPSULE PO SCH (22:09)
[2016-09-26] MEDS: Z GUARD REMEDY PASTE 57 GM TUBE TOP SCH (22:11)
[2016-09-27 04:21] VITALS: BP 114/67
--- NOTE | 2016-09-27 05:58 | NUR ---
PATIENT SLEPT MOST OF THE NIGHT, WITH EPISODE OF AGITATION, USES URINAL FOR BLADDER ELIMINATION, DENIES PAIN AT THIS TIME, KEPT CLEAN AND DRY, ENCOURAGED TO DRINK FLUIDS BUT REFUSED.
[2016-09-27] MEDS: PANTOPRAZOLE SODIUM 40 MG TABLET.DR PO SCH (06:12)
[2016-09-27] MEDS: hydrALAZINE HCL 25 MG TABLET PO SCH ×2 (06:31→13:51)
--- NOTE | 2016-09-27 07:43 | NUR ---
RESTING IN BED NO SIGNS OF PAIN OR DISTRESS CLOSELY MONITORED
[2016-09-27] MEDS: ASCORBIC ACID 500 MG TABLET PO SCH (08:17)
[2016-09-27] MEDS: ALLOPURINOL 100 MG TABLET PO SCH (08:17)
[2016-09-27] MEDS: DABIGATRAN ETEXILATE MESYLATE 75 MG CAPSULE PO SCH (08:18)
[2016-09-27] MEDS: CHOLECALCIFEROL 1,000 UNIT TABLET PO SCH (08:18)
[2016-09-27] MEDS: FERROUS SULFATE SLOW RELEASE 45 MG (ELEMENTAL) TABEC PO SCH (08:18)
[2016-09-27] MEDS: DIVALPROEX SPRINKLE 125 MG CAP.SPRINK PO SCH (08:19)
[2016-09-27] MEDS: VENLAFAXINE XR 150 MG CAP.SR.24H PO SCH (08:19)
[2016-09-27] MEDS: CARVEDILOL 25 MG TABLET PO SCH (08:20)
[2016-09-27] MEDS: AMLODIPINE 5 MG TABLET PO SCH (08:20)
[2016-09-27] MEDS: Z GUARD REMEDY PASTE 57 GM TUBE TOP SCH (08:21)
[2016-09-27] MEDS: FLUTICASONE/VILANTEROL 1 EACH BLST.W.DEV INH SCH (08:22)
[2016-09-27 10:08] VITALS: BP 75/45
[2016-09-27 10:10] VITALS: BP 120/62
--- NOTE | 2016-09-27 11:00 | NUR ---
DR BLOOD MADE AWARE OF LOW BP DURING PHYSICAL THERAPY WITH ORDERS. WILL START ON FLORINEF O.I MGD DAILY
[2016-09-27 11:48] VITALS: BP 126/66
[2016-09-27] MEDS ORDERED: FLUDROCORTISONE ACETATE 0.1 MG TABLET PO SCH (12:00)
--- NOTE | 2016-09-27 12:00 | NUR ---
SEEN BY DR BLOOD WITH DANIELERS, PLAN DC BACK TO [facility] INSTRUMENTATION FITTER AWARE
--- NOTE | 2016-09-27 12:22 | NUR ---
Discharge Plan: Once medically cleared patient will be discharged to [facility] [[address] , [place] [address] ]. Patient will be transported via ambulance. Spoke with Noy who is aware and agreeable with the discharge plans.
[2016-09-27] MEDS ORDERED: FLUD0.1T3 PO (12:26)
[2016-09-27] MEDS ORDERED: CARV12.5 PO (12:26)
[2016-09-27] MEDS ORDERED: FLUT1BLS INH (12:26)
[2016-09-27] MEDS: QUETIAPINE FUMARATE 25 MG TABLET PO SCH (13:51)
[2016-09-27 15:28] VITALS: BP 116/63
--- NOTE | 2016-09-27 16:32 | NUR ---
DISCHARGED VIA AMBULANCE TO [facility], REPORT GIVEN TO DEREJE
== END 2016-09-27 16:35 | DRG 312 ==
LOC: ER 10:12 → TELE 13:35 → MED 09-26 12:10
PROVIDERS: ADMIT Internal Medicine; ATTEND Internal Medicine
DX: I95.1 Orthostatic hypotension (principal); N17.0 Acute kidney failure with tubular necrosis; I50.43 Acute on chronic combined systolic (congestive) and diastolic (congestive) heart failure; G93.49 Other encephalopathy; I13.0 Hypertensive heart and chronic kidney disease with heart failure and stage 1 through stage 4 chronic kidney disease, or unspecified chronic kidney disease; F01.50 Vascular dementia, unspecified severity, without behavioral disturbance, psychotic disturbance, mood disturbance, and anxiety; E78.5 Hyperlipidemia, unspecified; Z95.1 Presence of aortocoronary bypass graft; Z95.810 Presence of automatic (implantable) cardiac defibrillator; Z79.899 Other long term (current) drug therapy; Z87.891 Personal history of nicotine dependence; I25.10 Atherosclerotic heart disease of native coronary artery without angina pectoris; I34.0 Nonrheumatic mitral (valve) insufficiency; I35.1 Nonrheumatic aortic (valve) insufficiency; J45.909 Unspecified asthma, uncomplicated; M10.9 Gout, unspecified; J44.9 Chronic obstructive pulmonary disease, unspecified; I35.0 Nonrheumatic aortic (valve) stenosis; R29.6 Repeated falls; Z86.73 Personal history of transient ischemic attack (TIA), and cerebral infarction without residual deficits; I25.2 Old myocardial infarction; I48.91 Unspecified atrial fibrillation; I73.9 Peripheral vascular disease, unspecified; Z88.8 Allergy status to other drugs, medicaments and biological substances; S40.812A Abrasion of left upper arm, initial encounter; Z91.81 History of falling; W18.30XA Fall on same level, unspecified, initial encounter; Y92.009 Unspecified place in unspecified non-institutional (private) residence as the place of occurrence of the external cause; Z79.01 Long term (current) use of anticoagulants; I49.9 Cardiac arrhythmia, unspecified; I11.0 Hypertensive heart disease with heart failure; N18.3 Chronic kidney disease, stage 3 (moderate); F32.9 Major depressive disorder, single episode, unspecified; I72.3 Aneurysm of iliac artery
CPT/HCPCS: 36415; 70030-TC; 70450; 71010; 71250; 72192; 73030; 83735; 84100; 85025; 85730; 90715; 93005; 97110; 97161; 97530; A4663

== ENCOUNTER 2016-10-18 13:35 | Inpatient (IN) | payer MEDICARE ==
[~2016-10-18] VITALS: Ht 177.8 cm; Wt 65.8 kg
[~2016-10-18 13:35] MED LIST changes: +CARV12.5 PO; -CARV12.52 PO; +FLUD0.1T3 PO; +FLUT1BLS INH; -FLUT1DIS28 INH
--- NOTE | 2016-10-18 13:43 | NUR ---
PT IS IN ROOM #2B. DR BROCK EVALUATED THE PT.
[2016-10-18 14:31] LABS: BASOPHILS % (AUTO) 0.4 % (0.0-2.0); EOSINOPHILS # (AUTO) 0.3 K/uL (0.0-0.7); EOSINOPHILS % (AUTO) 3.9 % (0.0-7.0); HEMATOCRIT 33.9 % (40-50); HEMOGLOBIN 10.9 G/DL (14.0-18.0); LYMPHOCYTES # (AUTO) 1.1 K/UL (0.8-4.8); LYMPHOCYTES % (AUTO) 14.4 % (20.5-51.5); MEAN CORPUSCULAR HEMOGLOBIN 28.4 UUG (27.0-31.0); MEAN CORPUSCULAR HGB CONC 32 g/dL (32.0-37.0); MEAN CORPUSCULAR VOLUME 88.5 FL (82.0-92.0); MONOCYTES # (AUTO) 0.8 K/UL (0.1-1.30); NEUTROPHILS # (AUTO) 5.6 K/UL (1.8-8.9); NEUTROPHILS % (AUTO) 71.3 % (38.5-71.5); PLATELET COUNT (AUTO) 181 K/UL (150-450); RED BLOOD CELL COUNT(AUTO) 3.83 MIL/UL (4.7-6.1); WHITE BLOOD COUNT (AUTO) 7.8 K/UL (4.0-11.2)
[2016-10-18 14:40] LABS: CARBON DIOXIDE 33 mmol/L (21-32); CHLORIDE 101 mmol/L (98-107); CREATININE 2.6 mg/dL (0.6-1.3); GLUCOSE 130 mg/dL (74-106); POTASSIUM 4.3 mmol/L (3.5-5.1); UREA NITROGEN, BLOOD 53 mg/dL (7-18)
--- NOTE | 2016-10-18 14:51 | NUR ---
Pt is medically cleared by Dr Curtis. PET evaluater Miguel Shine called, eta 15 min.
[2016-10-18 14:52] LABS: ALANINE AMINOTRANSFERASE 14 U/L (16-63); ALKALINE PHOSPHATASE 87 U/L (50-136); ASPARTATE AMINOTRANSFERASE 17 U/L (15-37); BILIRUBIN,DIRECT 0.1 mg/dL (0.0-0.2); BILIRUBIN,TOTAL 0.5 mg/dL (0.2-1.0); TOTAL PROTEIN, SERUM 6.8 g/dL (6.4-8.2)
[2016-10-18 14:53] LABS: ACETAMINOPHEN < 2.0 ug/mL (10-30)
[2016-10-18 15:04] LABS: ETHANOL < 3 MG/DL (0-0)
--- NOTE | 2016-10-18 15:47 | NUR ---
RASHEEDA PIMENTEL EVALUATED THE PT.
--- NOTE | 2016-10-18 16:11 | NUR ---
REPORT WAS GIVEN TO RN MHU. PT WAS TRANSFERED TO [facility] ROOM #137A.
[2016-10-18 16:30] VITALS: BP 185/87
[2016-10-18] MEDS ORDERED: ACETAMINOPHEN 325 MG TABLET PO PRN (16:30)
[2016-10-18] MEDS ORDERED: MAG HYDROX/AL HYDROX/SIMETH 30 ML LIQUID UDC PO PRN (16:30)
--- NOTE | 2016-10-18 17:46 | NUR ---
GPS: Nursing Notes: Admission Notes: Patient is admitted to MHU at 16:30 from ER, placed on 5150 GD due to refusing care, refusing medications, striking out toward nursing staff at [facility], upon evaluation, depressed mood and blunted affect, low energy level, low tone of voice, A/Ox3, cooperative with staff, denies any SI/HI, denies any AH/VH, denies any pain or discomfort, unsteady and weak gait, believes that he is here to see Dr. Benson only, unable to formulate a viable plan for self care, left message to his Noy Galeano . Dr. Peña and Dr. Benson notified of admission.
[2016-10-18] MEDS ORDERED: VENL150C2 PO (17:47)
[2016-10-18] MEDS ORDERED: DABI150C PO (17:47)
[2016-10-18] MEDS ORDERED: QUET25TA PO (17:47)
[2016-10-18] MEDS ORDERED: DIVA125C PO ×2 (17:47)
--- NOTE | 2016-10-18 17:47 | NUR ---
GPS/RN- Dr Peña notified of admission, orders received for admitting; [facility], Mary Carmen Beckman N.Kim. notified of med [facility].
[2016-10-18] MEDS ORDERED: ALBUTEROL SULFATE 2.5 MG/3 ML NEBU NEB PRN (18:00)
[2016-10-18] MEDS ORDERED: CLONIDINE HCL 0.1 MG TABLET PO PRN (18:00)
[2016-10-18] MEDS ORDERED: IPRATROPIUM BROMIDE 0.5 MG/2.5 ML NEBU NEB PRN (18:00)
[2016-10-18] MEDS: CARVEDILOL 12.5 MG TABLET PO SCH (18:18)
[2016-10-18] MEDS: CLONIDINE-TTS 1 PATCH TD SCH (19:07)
[2016-10-18] MEDS: DOCUSATE SODIUM 100 MG CAPSULE PO SCH (20:11)
[2016-10-18] MEDS: ATORVASTATIN 20 MG TABLET PO SCH (20:11)
[2016-10-18] MEDS: DIVALPROEX SPRINKLE 125 MG CAP.SPRINK PO SCH (20:11)
[2016-10-18] MEDS: AMLODIPINE 5 MG TABLET PO SCH (20:12)
[2016-10-18 20:57] VITALS: BP 121/63
[2016-10-18] MEDS ORDERED: DOCUSATE SODIUM 250 MG CAPSULE PO SCH (21:00)
[2016-10-18] MEDS ORDERED: hydrALAZINE HCL 50 MG TABLET PO SCH (22:00)
[2016-10-18] MEDS: hydrALAZINE HCL 25 MG TABLET PO SCH (22:10)
[2016-10-18] MEDS: TEMAZEPAM 7.5 MG CAPSULE PO PRN (22:50)
[2016-10-19] MEDS: hydrALAZINE HCL 25 MG TABLET PO SCH ×3 (06:17→22:22)
[2016-10-19] MEDS: PANTOPRAZOLE SODIUM 40 MG TABLET.DR PO SCH (06:17)
[2016-10-19 07:11] LABS: BASOPHILS % (AUTO) 0.4 % (0.0-2.0); EOSINOPHILS # (AUTO) 0.3 K/uL (0.0-0.7); EOSINOPHILS % (AUTO) 4.2 % (0.0-7.0); HEMATOCRIT 31.6 % (40-50); HEMOGLOBIN 10.6 G/DL (14.0-18.0); LYMPHOCYTES # (AUTO) 1.6 K/UL (0.8-4.8); LYMPHOCYTES % (AUTO) 20.6 % (20.5-51.5); MEAN CORPUSCULAR HEMOGLOBIN 29.5 UUG (27.0-31.0); MEAN CORPUSCULAR HGB CONC 33 g/dL (32.0-37.0); MEAN CORPUSCULAR VOLUME 88.4 FL (82.0-92.0); MONOCYTES # (AUTO) 0.8 K/UL (0.1-1.30); MONOCYTES % (AUTO) 10.4 % (0.0-11.0); NEUTROPHILS # (AUTO) 4.9 K/UL (1.8-8.9); NEUTROPHILS % (AUTO) 64.4 % (38.5-71.5); PLATELET COUNT (AUTO) 168 K/UL (150-450); RED BLOOD CELL COUNT(AUTO) 3.58 MIL/UL (4.7-6.1); WHITE BLOOD COUNT (AUTO) 7.6 K/UL (4.0-11.2)
[2016-10-19 07:29] LABS: THYROID STIMULATING HORMONE 1.991 mIU/mL (0.358-3.740)
[2016-10-19 07:30] VITALS: BP 116/58
[2016-10-19 07:43] LABS: IRON, SERUM 51 ug/dL (50-175)
[2016-10-19 07:58] LABS: ALANINE AMINOTRANSFERASE 12 U/L (16-63); ALKALINE PHOSPHATASE 80 U/L (50-136); ASPARTATE AMINOTRANSFERASE 17 U/L (15-37); BILIRUBIN,TOTAL 0.5 mg/dL (0.2-1.0); CARBON DIOXIDE 30 mmol/L (21-32); CHLORIDE 102 mmol/L (98-107); CHOLESTEROL 137 mg/dL (<200); CREATININE 2.1 mg/dL (0.6-1.3); GLUCOSE 82 mg/dL (74-106); HDL CHOLESTEROL 50 mg/dL (40-60); MAGNESIUM 2.1 mg/dL (1.8-2.4); PHOSPHOROUS 3.6 mg/dL (2.5-4.9); POTASSIUM 3.8 mmol/L (3.5-5.1); TOTAL PROTEIN, SERUM 6.2 g/dL (6.4-8.2); TRIGLYCERIDES 66 MG/DL (30-150); UREA NITROGEN, BLOOD 54 mg/dL (7-18)
[2016-10-19 08:19] LABS: VALPROIC ACID 21 ug/mL (50-100)
[2016-10-19] MEDS: ASCORBIC ACID 500 MG TABLET PO SCH (08:46)
[2016-10-19] MEDS: CHOLECALCIFEROL 1,000 UNIT TABLET PO SCH (08:46)
[2016-10-19] MEDS: DIVALPROEX SPRINKLE 125 MG CAP.SPRINK PO SCH ×3 (08:46→20:06)
[2016-10-19] MEDS: AMLODIPINE 5 MG TABLET PO SCH ×2 (08:46→20:06)
[2016-10-19] MEDS: CARVEDILOL 12.5 MG TABLET PO SCH ×2 (08:47→17:47)
[2016-10-19] MEDS: ALLOPURINOL 100 MG TABLET PO SCH (08:47)
[2016-10-19] MEDS: FLUTICASONE/VILANTEROL 1 EACH BLST.W.DEV INH SCH (08:48)
[2016-10-19] MEDS ORDERED: DABIGATRAN ETEXILATE MESYLATE 150 MG CAPSULE PO SCH (09:00)
[2016-10-19] MEDS ORDERED: ASCORBIC ACID 500 MG PO SCH (09:00)
[2016-10-19] MEDS ORDERED: [UNRECOGNIZED DRUG - OTHER] PO SCH (09:00)
[2016-10-19] MEDS ORDERED: FERROUS SULFATE PO SCH (09:00)
--- NOTE | 2016-10-19 13:38 | NUR ---
Initial discharge instructions: Pt was residing at [facility] [[address] [place] [address];[phone]].Per pt,he would like to return home with his in [place], [place].Attempted to call pt's ,Noy [phone] but no answer at this time.SW will speak with pt,,and MD regarding appropriate discharge plans.SW will form a safe and proper discharge plan.
[2016-10-19] MEDS: FERROUS SULFATE SLOW RELEASE 45 MG (ELEMENTAL) TABEC PO SCH (14:29)
[2016-10-19] MEDS: PRADAXA PO SCH ×2 (14:30→20:09)
[2016-10-19 16:00] VITALS: BP 138/73
[2016-10-19] MEDS: MONTELUKAST SODIUM 10 MG TABLET PO SCH (17:46)
[2016-10-19] MEDS: ATORVASTATIN 20 MG TABLET PO SCH (20:06)
[2016-10-19] MEDS: DOCUSATE SODIUM 100 MG CAPSULE PO SCH (20:06)
[2016-10-19 20:22] VITALS: BP 161/68
--- NOTE | 2016-10-19 20:56 | NUR ---
PATIENT RECEIVED IN BED AWAKE. PATIENT IN NO APPARENT DISTRESS WILL CONTINUE TO MONITOR. NO AGGRESSIVE OR COMBATIVE BEHAVIOR NOTED, PATIENT IS UNPREDICTABLE, EASILY IRRITABLE AND AGITATED WILL CONTINUE TO MONITOR AND REDIRECT. PATIENT COMPLAINT WITH MEDICATION. BED IN LOWEST POSITION, BED LOCKED, AND BED ALARM ON WHILE IN BED. PATIENT DENIES PAIN AT THIS TIME, WILL CONTINUE TO MONITOR.
[2016-10-19] MEDS: risperiDONE 0.5 MG TABLET PO SCH (22:15)
[2016-10-19] MEDS ORDERED: risperiDONE 0.5 MG TABLET ONE (22:26)
[2016-10-20] MEDS: TEMAZEPAM 7.5 MG CAPSULE PO PRN (00:55)
[2016-10-20] MEDS: PANTOPRAZOLE SODIUM 40 MG TABLET.DR PO SCH (06:17)
[2016-10-20] MEDS: hydrALAZINE HCL 25 MG TABLET PO SCH (06:18)
[2016-10-20 07:30] VITALS: BP 149/72
[2016-10-20] MEDS: ALLOPURINOL 100 MG TABLET PO SCH (08:49)
[2016-10-20] MEDS: CHOLECALCIFEROL 1,000 UNIT TABLET PO SCH (08:49)
[2016-10-20] MEDS: ASCORBIC ACID 500 MG TABLET PO SCH (08:49)
[2016-10-20] MEDS: DIVALPROEX SPRINKLE 125 MG CAP.SPRINK PO SCH ×3 (08:50→20:48)
[2016-10-20] MEDS: FERROUS SULFATE SLOW RELEASE 45 MG (ELEMENTAL) TABEC PO SCH (08:50)
[2016-10-20] MEDS: CARVEDILOL 12.5 MG TABLET PO SCH ×2 (08:50→18:00)
[2016-10-20] MEDS: risperiDONE 0.5 MG TABLET PO SCH ×2 (08:51→20:49)
[2016-10-20] MEDS: AMLODIPINE 5 MG TABLET PO SCH ×2 (08:51→20:49)
[2016-10-20] MEDS: PRADAXA PO SCH ×2 (08:52→21:24)
[2016-10-20] MEDS: FLUTICASONE/VILANTEROL 1 EACH BLST.W.DEV INH SCH (08:53)
[2016-10-20] MEDS: VENLAFAXINE XR 150 MG CAP.SR.24H PO SCH (11:26)
[2016-10-20] MEDS: hydrALAZINE HCL 50 MG TABLET PO SCH ×2 (14:00→22:59)
[2016-10-20 15:00] VITALS: BP 126/74
[2016-10-20] MEDS: MONTELUKAST SODIUM 10 MG TABLET PO SCH (18:00)
[2016-10-20 20:00] VITALS: BP 124/67
[2016-10-20] MEDS: DOCUSATE SODIUM 100 MG CAPSULE PO SCH (20:49)
[2016-10-20] MEDS: ATORVASTATIN 20 MG TABLET PO SCH (20:49)
--- NOTE | 2016-10-20 21:00 | NUR ---
PT RECEIVED IN HIS ROOM LAYING IN BED AWAKE, MILDLY PLEASANT UPON APPROACH, DENIES ANY PAIN/SI/HI, ABLE TO MAKE NEEDS KNOWN, WILL CONTINUE TO MONITOR CLOSELY.
[2016-10-21] MEDS: hydrALAZINE HCL 50 MG TABLET PO SCH ×3 (06:34→23:35)
[2016-10-21] MEDS: PANTOPRAZOLE SODIUM 40 MG TABLET.DR PO SCH (06:35)
[2016-10-21 07:30] VITALS: BP 150/71
[2016-10-21 07:37] LABS: BASOPHILS % (AUTO) 0.4 % (0.0-2.0); EOSINOPHILS # (AUTO) 0.3 K/uL (0.0-0.7); EOSINOPHILS % (AUTO) 3.8 % (0.0-7.0); HEMATOCRIT 33.5 % (40-50); HEMOGLOBIN 11.3 G/DL (14.0-18.0); LYMPHOCYTES # (AUTO) 1.7 K/UL (0.8-4.8); LYMPHOCYTES % (AUTO) 22.9 % (20.5-51.5); MEAN CORPUSCULAR HEMOGLOBIN 29.6 UUG (27.0-31.0); MEAN CORPUSCULAR HGB CONC 34 g/dL (32.0-37.0); MEAN CORPUSCULAR VOLUME 87.8 FL (82.0-92.0); MONOCYTES # (AUTO) 0.9 K/UL (0.1-1.30); MONOCYTES % (AUTO) 11.6 % (0.0-11.0); NEUTROPHILS # (AUTO) 4.6 K/UL (1.8-8.9); NEUTROPHILS % (AUTO) 61.3 % (38.5-71.5); PLATELET COUNT (AUTO) 163 K/UL (150-450); RED BLOOD CELL COUNT(AUTO) 3.82 MIL/UL (4.7-6.1); WHITE BLOOD COUNT (AUTO) 7.5 K/UL (4.0-11.2)
[2016-10-21 07:42] LABS: ALANINE AMINOTRANSFERASE 12 U/L (16-63); ALKALINE PHOSPHATASE 80 U/L (50-136); ASPARTATE AMINOTRANSFERASE 17 U/L (15-37); BILIRUBIN,TOTAL 0.4 mg/dL (0.2-1.0); CARBON DIOXIDE 31 mmol/L (21-32); CHLORIDE 103 mmol/L (98-107); CREATINE KINASE, TOTAL 58 U/L (39-308); CREATININE 2.1 mg/dL (0.6-1.3); GLUCOSE 83 mg/dL (74-106); MAGNESIUM 2.1 mg/dL (1.8-2.4); PHOSPHOROUS 3.5 mg/dL (2.5-4.9); POTASSIUM 3.8 mmol/L (3.5-5.1); TOTAL PROTEIN, SERUM 6.6 g/dL (6.4-8.2); UREA NITROGEN, BLOOD 47 mg/dL (7-18)
[2016-10-21] MEDS: risperiDONE 0.5 MG TABLET PO SCH ×2 (08:07→20:48)
[2016-10-21] MEDS: CARVEDILOL 12.5 MG TABLET PO SCH ×2 (08:07→17:01)
[2016-10-21] MEDS: ASCORBIC ACID 500 MG TABLET PO SCH (08:07)
[2016-10-21] MEDS: ALLOPURINOL 100 MG TABLET PO SCH (08:07)
[2016-10-21] MEDS: FERROUS SULFATE SLOW RELEASE 45 MG (ELEMENTAL) TABEC PO SCH (08:07)
[2016-10-21] MEDS: DIVALPROEX SPRINKLE 125 MG CAP.SPRINK PO SCH ×3 (08:07→20:48)
[2016-10-21] MEDS: CHOLECALCIFEROL 1,000 UNIT TABLET PO SCH (08:07)
[2016-10-21] MEDS: AMLODIPINE 5 MG TABLET PO SCH ×2 (08:08→20:48)
[2016-10-21] MEDS: VENLAFAXINE XR 150 MG CAP.SR.24H PO SCH (08:09)
[2016-10-21] MEDS: FLUTICASONE/VILANTEROL 1 EACH BLST.W.DEV INH SCH (08:53)
[2016-10-21] MEDS: PRADAXA PO SCH ×2 (08:54→21:35)
[2016-10-21 15:00] VITALS: BP 118/63
[2016-10-21] MEDS: MONTELUKAST SODIUM 10 MG TABLET PO SCH (17:01)
[2016-10-21 20:47] VITALS: BP 120/63
[2016-10-21] MEDS: DOCUSATE SODIUM 100 MG CAPSULE PO SCH (20:47)
[2016-10-21] MEDS: ATORVASTATIN 20 MG TABLET PO SCH (20:48)
[2016-10-22] MEDS: hydrALAZINE HCL 50 MG TABLET PO SCH ×3 (06:00→22:41)
[2016-10-22] MEDS: PANTOPRAZOLE SODIUM 40 MG TABLET.DR PO SCH (07:00)
[2016-10-22 07:30] VITALS: BP 170/87
[2016-10-22] MEDS: VENLAFAXINE XR 150 MG CAP.SR.24H PO SCH (09:01)
[2016-10-22] MEDS: ALLOPURINOL 100 MG TABLET PO SCH (09:01)
[2016-10-22] MEDS: FERROUS SULFATE SLOW RELEASE 45 MG (ELEMENTAL) TABEC PO SCH (09:01)
[2016-10-22] MEDS: CHOLECALCIFEROL 1,000 UNIT TABLET PO SCH (09:01)
[2016-10-22] MEDS: DIVALPROEX SPRINKLE 125 MG CAP.SPRINK PO SCH ×3 (09:01→20:35)
[2016-10-22] MEDS: ASCORBIC ACID 500 MG TABLET PO SCH (09:02)
[2016-10-22] MEDS: risperiDONE 0.5 MG TABLET PO SCH ×2 (09:02→20:35)
[2016-10-22] MEDS: PRADAXA PO SCH ×2 (09:03→20:36)
[2016-10-22] MEDS: AMLODIPINE 5 MG TABLET PO SCH ×2 (09:17→20:45)
[2016-10-22] MEDS: CARVEDILOL 12.5 MG TABLET PO SCH ×2 (09:18→17:21)
[2016-10-22] MEDS: FLUTICASONE/VILANTEROL 1 EACH BLST.W.DEV INH SCH (10:00)
[2016-10-22 10:35] LABS: *BILIRUBIN,URIN NEGATIVE (NEGATIVE); *BLOOD, URINE NEGATIVE (NEGATIVE); *CLARITY,URINE CLEAR (CLEAR); *COLOR,URINE LIGHT YELLOW (YELLOW); *KETONES,URINE NEGATIVE (NEGATIVE); *PROTEIN,URINE NEGATIVE (NEGATIVE); *UROBILINOGEN,URINE 0.2 E.U./dl (NORMAL); LEUKOCYTE ESTERASE ,URINE NEGATIVE (NEGATIVE); NITRITE, URINE NEGATIVE (NEGATIVE); PH,URINE 7.5 (5.0-8.0); UGLUCOSE NEGATIVE (NEGATIVE)
[2016-10-22 10:39] LABS: *CREATININE,URINE 20.9 mg/dL (30-125); *URINE TOTAL PROTEIN RANDOM 14.6 mg/dL (<150/24HR)
[2016-10-22 11:15] LABS: RBC,URINE 0-3 /HPF (0-3); WBC,URINE 0-3 /HPF (0-3)
[2016-10-22 11:16] LABS: BACTERIA,URINE NONE SEEN /HPF (NONE SEEN); SQUAMOUS EPITHELIAL CELL,UR FEW /HPF (NONE SEEN)
[2016-10-22 15:15] VITALS: BP 121/68
[2016-10-22] MEDS: MONTELUKAST SODIUM 10 MG TABLET PO SCH (17:21)
[2016-10-22] MEDS: DOCUSATE SODIUM 100 MG CAPSULE PO SCH (20:35)
[2016-10-22] MEDS: ATORVASTATIN 20 MG TABLET PO SCH (20:35)
[2016-10-22 21:59] VITALS: BP 110/60
--- NOTE | 2016-10-22 22:00 | NUR ---
UPON PATIENT CARE, PATIENT BECAME LABILE TOWARDS STAFF AND BECAME COMBATIVE KICKING AND PUNCHING. " I WILL HURT YOU." PATIENT UNPREDICTABLE. PATIENT REQUIRES CONSTANT REDIRECTION AND PROMPTING. BED IN LOWEST POSITION, BED LOCKED, AND BED ALARM ON WHILE IN BED FOR SAFETY.
[2016-10-22] MEDS: TEMAZEPAM 7.5 MG CAPSULE PO PRN (22:41)
[2016-10-23] MEDS: hydrALAZINE HCL 50 MG TABLET PO SCH ×3 (06:00→22:47)
[2016-10-23] MEDS: PANTOPRAZOLE SODIUM 40 MG TABLET.DR PO SCH (06:34)
[2016-10-23 07:23] LABS: BASOPHILS % (AUTO) 0.3 % (0.0-2.0); EOSINOPHILS # (AUTO) 0.2 K/uL (0.0-0.7); EOSINOPHILS % (AUTO) 3.1 % (0.0-7.0); HEMATOCRIT 33.5 % (40-50); HEMOGLOBIN 11.3 G/DL (14.0-18.0); LYMPHOCYTES # (AUTO) 1.4 K/UL (0.8-4.8); LYMPHOCYTES % (AUTO) 20.9 % (20.5-51.5); MEAN CORPUSCULAR HEMOGLOBIN 29.6 UUG (27.0-31.0); MEAN CORPUSCULAR HGB CONC 34 g/dL (32.0-37.0); MONOCYTES # (AUTO) 0.7 K/UL (0.1-1.30); NEUTROPHILS # (AUTO) 4.5 K/UL (1.8-8.9); NEUTROPHILS % (AUTO) 64.7 % (38.5-71.5); PLATELET COUNT (AUTO) 166 K/UL (150-450); RED BLOOD CELL COUNT(AUTO) 3.81 MIL/UL (4.7-6.1); WHITE BLOOD COUNT (AUTO) 6.8 K/UL (4.0-11.2)
[2016-10-23 07:30] VITALS: BP 152/78
[2016-10-23 07:50] LABS: ALANINE AMINOTRANSFERASE 12 U/L (16-63); ALKALINE PHOSPHATASE 80 U/L (50-136); ASPARTATE AMINOTRANSFERASE 15 U/L (15-37); BILIRUBIN,TOTAL 0.4 mg/dL (0.2-1.0); CARBON DIOXIDE 31 mmol/L (21-32); CHLORIDE 101 mmol/L (98-107); CREATININE 2.3 mg/dL (0.6-1.3); GLUCOSE 81 mg/dL (74-106); MAGNESIUM 2.1 mg/dL (1.8-2.4); POTASSIUM 3.9 mmol/L (3.5-5.1); TOTAL PROTEIN, SERUM 6.5 g/dL (6.4-8.2); UREA NITROGEN, BLOOD 52 mg/dL (7-18)
[2016-10-23] MEDS: ASCORBIC ACID 500 MG TABLET PO SCH (09:47)
[2016-10-23] MEDS: ALLOPURINOL 100 MG TABLET PO SCH (09:48)
[2016-10-23] MEDS: risperiDONE 0.5 MG TABLET PO SCH ×2 (09:48→20:02)
[2016-10-23] MEDS: CHOLECALCIFEROL 1,000 UNIT TABLET PO SCH (09:48)
[2016-10-23] MEDS: DIVALPROEX SPRINKLE 125 MG CAP.SPRINK PO SCH ×3 (09:48→20:01)
[2016-10-23] MEDS: VENLAFAXINE XR 150 MG CAP.SR.24H PO SCH (09:48)
[2016-10-23] MEDS: AMLODIPINE 5 MG TABLET PO SCH ×2 (09:49→20:02)
[2016-10-23] MEDS: CARVEDILOL 12.5 MG TABLET PO SCH ×2 (09:49→17:24)
[2016-10-23] MEDS: PRADAXA PO SCH ×2 (09:50→20:02)
[2016-10-23] MEDS: FERROUS SULFATE SLOW RELEASE 45 MG (ELEMENTAL) TABEC PO SCH (09:50)
[2016-10-23] MEDS: FLUTICASONE/VILANTEROL 1 EACH BLST.W.DEV INH SCH (09:50)
[2016-10-23 16:18] VITALS: BP 124/65
[2016-10-23] MEDS: MONTELUKAST SODIUM 10 MG TABLET PO SCH (17:24)
[2016-10-23] MEDS: ATORVASTATIN 20 MG TABLET PO SCH (20:01)
[2016-10-23] MEDS: DOCUSATE SODIUM 100 MG CAPSULE PO SCH (20:01)
[2016-10-23 20:10] VITALS: BP 142/69
[2016-10-23] MEDS ORDERED: risperiDONE 0.5 MG TABLET PO SCH (22:00)
[2016-10-23] MEDS: risperiDONE 1 MG TABLET PO SCH (22:58)
[2016-10-23] MEDS ORDERED: risperiDONE 0.5 MG TABLET ONE (23:08)
[2016-10-24] MEDS: TEMAZEPAM 7.5 MG CAPSULE PO PRN (00:22)
[2016-10-24] MEDS: hydrALAZINE HCL 50 MG TABLET PO SCH ×3 (06:00→21:40)
[2016-10-24] MEDS: PANTOPRAZOLE SODIUM 40 MG TABLET.DR PO SCH (06:14)
--- NOTE | 2016-10-24 06:18 | NUR ---
PATIENT REFUSED VITAL SIGNS, REFUSED AM MEDICATION. PATIENT BECAME COMBATIVE, RESTLESS, AND AGITATED.
[2016-10-24 07:30] VITALS: BP 162/79
[2016-10-24] MEDS: CARVEDILOL 12.5 MG TABLET PO SCH ×2 (08:00→17:33)
[2016-10-24] MEDS: PRADAXA PO SCH ×2 (09:00→21:45)
[2016-10-24] MEDS: FERROUS SULFATE SLOW RELEASE 45 MG (ELEMENTAL) TABEC PO SCH (09:00)
[2016-10-24] MEDS: ALLOPURINOL 100 MG TABLET PO SCH (09:00)
[2016-10-24] MEDS: CHOLECALCIFEROL 1,000 UNIT TABLET PO SCH (09:00)
[2016-10-24] MEDS: ASCORBIC ACID 500 MG TABLET PO SCH (09:00)
[2016-10-24] MEDS: risperiDONE 1 MG TABLET PO SCH (09:00)
[2016-10-24] MEDS: FLUTICASONE/VILANTEROL 1 EACH BLST.W.DEV INH SCH (09:00)
[2016-10-24] MEDS: AMLODIPINE 5 MG TABLET PO SCH ×2 (09:00→20:22)
[2016-10-24] MEDS: VENLAFAXINE XR 150 MG CAP.SR.24H PO SCH (09:00)
[2016-10-24] MEDS: DIVALPROEX SPRINKLE 125 MG CAP.SPRINK PO SCH ×5 (09:00→20:21)
[2016-10-24] MEDS: LORAZEPAM 1 MG TABLET PO PRN ×2 (09:12→14:09)
[2016-10-24 16:28] VITALS: BP 103/58
[2016-10-24] MEDS: MONTELUKAST SODIUM 10 MG TABLET PO SCH (17:25)
--- NOTE | 2016-10-24 17:38 | NUR ---
pt s refused to let pt take depakote due to his confusion , he wasn t like this before or yesterday , i held dose for 170
[2016-10-24 19:30] VITALS: BP 148/72
[2016-10-24] MEDS: ATORVASTATIN 20 MG TABLET PO SCH (20:20)
[2016-10-24] MEDS: DOCUSATE SODIUM 100 MG CAPSULE PO SCH (20:20)
[2016-10-24] MEDS ORDERED: risperiDONE 1 MG TABLET PO SCH (21:00)
[2016-10-24] MEDS: risperiDONE 2 MG TABLET PO SCH (21:39)
[2016-10-25] MEDS: TEMAZEPAM 7.5 MG CAPSULE PO PRN (00:08)
[2016-10-25] MEDS: hydrALAZINE HCL 50 MG TABLET PO SCH ×3 (06:53→22:20)
[2016-10-25] MEDS: PANTOPRAZOLE SODIUM 40 MG TABLET.DR PO SCH (06:53)
[2016-10-25 07:30] VITALS: BP 165/74
[2016-10-25] MEDS: DIVALPROEX SPRINKLE 125 MG CAP.SPRINK PO SCH ×3 (08:44→20:24)
[2016-10-25] MEDS: ASCORBIC ACID 500 MG TABLET PO SCH (08:44)
[2016-10-25] MEDS: CARVEDILOL 12.5 MG TABLET PO SCH ×2 (08:46→17:06)
[2016-10-25] MEDS: FERROUS SULFATE SLOW RELEASE 45 MG (ELEMENTAL) TABEC PO SCH (08:48)
[2016-10-25] MEDS: PRADAXA PO SCH ×2 (08:48→20:21)
[2016-10-25] MEDS: risperiDONE 2 MG TABLET PO SCH ×2 (08:48→20:11)
[2016-10-25] MEDS: VENLAFAXINE XR 150 MG CAP.SR.24H PO SCH (08:52)
[2016-10-25] MEDS: AMLODIPINE 5 MG TABLET PO SCH ×2 (08:52→20:10)
[2016-10-25] MEDS: CHOLECALCIFEROL 1,000 UNIT TABLET PO SCH (09:00)
[2016-10-25] MEDS: ALLOPURINOL 100 MG TABLET PO SCH (09:00)
[2016-10-25] MEDS: FLUTICASONE/VILANTEROL 1 EACH BLST.W.DEV INH SCH (09:00)
[2016-10-25 16:00] VITALS: BP 168/83
[2016-10-25] MEDS: MONTELUKAST SODIUM 10 MG TABLET PO SCH (17:06)
[2016-10-25] MEDS: CLONIDINE-TTS 1 PATCH TD SCH ×2 (17:06→18:00)
[2016-10-25 18:50] VITALS: BP 88/45
--- NOTE | 2016-10-25 18:51 | NUR ---
Pt BP was 168/83 at 1600, pt's PO medications given and his Clonodine patch was given. Rechecked pt's BP at 1830 - 88/45 (rechecked x 3). Clonodine patch was removed, pt is sitting in red-chair, denies distress, offered water and fluids. Will continue to monitor.
[2016-10-25 19:53] VITALS: BP 116/54
[2016-10-25] MEDS: DOCUSATE SODIUM 100 MG CAPSULE PO SCH (20:08)
[2016-10-25] MEDS: ATORVASTATIN 20 MG TABLET PO SCH (20:09)
[2016-10-25] MEDS: MAGNESIUM HYDROXIDE 30 ML LIQUID UDC PO PRN (22:18)
[2016-10-26] MEDS: hydrALAZINE HCL 50 MG TABLET PO SCH ×3 (06:43→22:12)
[2016-10-26] MEDS: PANTOPRAZOLE SODIUM 40 MG TABLET.DR PO SCH (06:53)
[2016-10-26 07:30] VITALS: BP 176/76
[2016-10-26] MEDS: ASCORBIC ACID 500 MG TABLET PO SCH (08:56)
[2016-10-26] MEDS: CARVEDILOL 12.5 MG TABLET PO SCH ×2 (08:57→17:30)
[2016-10-26] MEDS: AMLODIPINE 5 MG TABLET PO SCH ×2 (08:57→20:46)
[2016-10-26] MEDS: ALLOPURINOL 100 MG TABLET PO SCH (08:57)
[2016-10-26] MEDS: DIVALPROEX SPRINKLE 125 MG CAP.SPRINK PO SCH ×3 (08:58→17:30)
[2016-10-26] MEDS: VENLAFAXINE XR 150 MG CAP.SR.24H PO SCH (08:58)
[2016-10-26] MEDS: PRADAXA PO SCH ×2 (08:58→20:47)
[2016-10-26] MEDS: risperiDONE 2 MG TABLET PO SCH (08:58)
[2016-10-26] MEDS: CHOLECALCIFEROL 1,000 UNIT TABLET PO SCH (08:58)
[2016-10-26] MEDS: FERROUS SULFATE SLOW RELEASE 45 MG (ELEMENTAL) TABEC PO SCH (09:02)
[2016-10-26] MEDS: FLUTICASONE/VILANTEROL 1 EACH BLST.W.DEV INH SCH (09:03)
[2016-10-26 13:53] VITALS: BP 121/68
[2016-10-26 16:00] VITALS: BP 133/70
[2016-10-26] MEDS: MONTELUKAST SODIUM 10 MG TABLET PO SCH (17:30)
[2016-10-26] MEDS: risperiDONE 1 MG TABLET PO SCH (20:45)
[2016-10-26] MEDS: ATORVASTATIN 20 MG TABLET PO SCH (20:45)
[2016-10-26] MEDS: DOCUSATE SODIUM 100 MG CAPSULE PO SCH (20:45)
[2016-10-26] MEDS: Z GUARD REMEDY PASTE 57 GM TUBE TOP SCH (21:05)
[2016-10-26 21:12] VITALS: BP 135/72
[2016-10-27] MEDS: PANTOPRAZOLE SODIUM 40 MG TABLET.DR PO SCH (06:15)
[2016-10-27] MEDS: hydrALAZINE HCL 50 MG TABLET PO SCH ×3 (06:15→22:56)
[2016-10-27 07:30] VITALS: BP 148/80
[2016-10-27] MEDS: ALLOPURINOL 100 MG TABLET PO SCH (08:50)
[2016-10-27] MEDS: VENLAFAXINE XR 150 MG CAP.SR.24H PO SCH (08:50)
[2016-10-27] MEDS: ASCORBIC ACID 500 MG TABLET PO SCH (08:50)
[2016-10-27] MEDS: DIVALPROEX SPRINKLE 125 MG CAP.SPRINK PO SCH ×3 (08:50→17:34)
[2016-10-27] MEDS: CARVEDILOL 12.5 MG TABLET PO SCH ×2 (08:50→17:34)
[2016-10-27] MEDS: PRADAXA PO SCH ×2 (08:52→20:24)
[2016-10-27] MEDS: CHOLECALCIFEROL 1,000 UNIT TABLET PO SCH (08:52)
[2016-10-27] MEDS: AMLODIPINE 5 MG TABLET PO SCH ×2 (08:52→20:23)
[2016-10-27] MEDS: FERROUS SULFATE SLOW RELEASE 45 MG (ELEMENTAL) TABEC PO SCH (08:53)
[2016-10-27] MEDS: FLUTICASONE/VILANTEROL 1 EACH BLST.W.DEV INH SCH (08:54)
[2016-10-27] MEDS: risperiDONE 1 MG TABLET PO SCH ×2 (08:59→20:22)
[2016-10-27] MEDS: Z GUARD REMEDY PASTE 57 GM TUBE TOP SCH ×2 (09:00→20:41)
[2016-10-27 15:00] VITALS: BP 107/63
[2016-10-27] MEDS: MONTELUKAST SODIUM 10 MG TABLET PO SCH (17:34)
[2016-10-27] MEDS: MAGNESIUM HYDROXIDE 30 ML LIQUID UDC PO PRN (18:11)
[2016-10-27] MEDS: DOCUSATE SODIUM 100 MG CAPSULE PO SCH (20:22)
[2016-10-27] MEDS: ATORVASTATIN 20 MG TABLET PO SCH (20:22)
[2016-10-27 20:46] VITALS: BP 119/65
[2016-10-28] MEDS: hydrALAZINE HCL 50 MG TABLET PO SCH ×3 (06:03→21:04)
[2016-10-28] MEDS: PANTOPRAZOLE SODIUM 40 MG TABLET.DR PO SCH (06:04)
[2016-10-28 07:30] VITALS: BP 134/72
[2016-10-28] MEDS: CARVEDILOL 12.5 MG TABLET PO SCH ×2 (08:00→17:59)
[2016-10-28] MEDS: risperiDONE 1 MG TABLET PO SCH ×2 (08:52→20:52)
[2016-10-28] MEDS: FLUTICASONE/VILANTEROL 1 EACH BLST.W.DEV INH SCH (08:52)
[2016-10-28] MEDS: AMLODIPINE 5 MG TABLET PO SCH ×2 (08:52→20:54)
[2016-10-28] MEDS: DIVALPROEX SPRINKLE 125 MG CAP.SPRINK PO SCH ×3 (08:52→17:58)
[2016-10-28] MEDS: FERROUS SULFATE SLOW RELEASE 45 MG (ELEMENTAL) TABEC PO SCH (08:52)
[2016-10-28] MEDS: PRADAXA PO SCH ×2 (08:52→23:54)
[2016-10-28] MEDS: VENLAFAXINE XR 150 MG CAP.SR.24H PO SCH (08:52)
[2016-10-28] MEDS: ALLOPURINOL 100 MG TABLET PO SCH (08:53)
[2016-10-28] MEDS: CHOLECALCIFEROL 1,000 UNIT TABLET PO SCH (08:53)
[2016-10-28] MEDS: ASCORBIC ACID 500 MG TABLET PO SCH (08:53)
[2016-10-28] MEDS: Z GUARD REMEDY PASTE 57 GM TUBE TOP SCH ×2 (08:55→20:51)
--- NOTE | 2016-10-28 09:00 | NUR ---
GPS/RN- patient am meds held, lethargic but arousable. continue to monitor
--- NOTE | 2016-10-28 13:33 | NUR ---
GPS.RN- DISCUSSED WITH DR COLLINS, PATIENT NOTED TO BE LETHARGIC IN AM, RISPERDAL IS GIVEN 1MG AMHS, DOSES ADJUSTED FOR AM DOSE TO BE GIVEN AT 1300 AND KEEP HS. CONTINUE TO MONITOR PATIENT SEDATED AT THIS TIME
[2016-10-28 16:40] VITALS: BP 158/73
[2016-10-28] MEDS: LORAZEPAM 1 MG TABLET PO PRN (17:59)
[2016-10-28] MEDS: MONTELUKAST SODIUM 10 MG TABLET PO SCH (17:59)
[2016-10-28 20:49] VITALS: BP 144/77
[2016-10-28] MEDS: ATORVASTATIN 20 MG TABLET PO SCH (20:51)
[2016-10-28] MEDS: DOCUSATE SODIUM 100 MG CAPSULE PO SCH (20:55)
[2016-10-29] MEDS: PANTOPRAZOLE SODIUM 40 MG TABLET.DR PO SCH (06:53)
[2016-10-29] MEDS: hydrALAZINE HCL 50 MG TABLET PO SCH ×3 (06:55→22:27)
[2016-10-29 07:30] VITALS: BP 167/76
[2016-10-29] MEDS: CARVEDILOL 12.5 MG TABLET PO SCH ×2 (08:19→17:26)
[2016-10-29] MEDS: ASCORBIC ACID 500 MG TABLET PO SCH (08:19)
[2016-10-29] MEDS: FERROUS SULFATE SLOW RELEASE 45 MG (ELEMENTAL) TABEC PO SCH (08:20)
[2016-10-29] MEDS: PRADAXA PO SCH ×2 (08:20→20:45)
[2016-10-29] MEDS: DIVALPROEX SPRINKLE 125 MG CAP.SPRINK PO SCH ×3 (08:20→17:26)
[2016-10-29] MEDS: CHOLECALCIFEROL 1,000 UNIT TABLET PO SCH (08:20)
[2016-10-29] MEDS: VENLAFAXINE XR 150 MG CAP.SR.24H PO SCH (08:20)
[2016-10-29] MEDS: AMLODIPINE 5 MG TABLET PO SCH ×2 (08:20→20:45)
[2016-10-29] MEDS: ALLOPURINOL 100 MG TABLET PO SCH (08:20)
[2016-10-29] MEDS: FLUTICASONE/VILANTEROL 1 EACH BLST.W.DEV INH SCH (08:23)
[2016-10-29] MEDS: Z GUARD REMEDY PASTE 57 GM TUBE TOP SCH ×2 (09:12→20:52)
[2016-10-29] MEDS: risperiDONE 1 MG TABLET PO SCH ×2 (13:00→20:41)
--- NOTE | 2016-10-29 13:38 | NUR ---
PT ES AGGITATED, ATTEMPTING TO HIT AND KICK. REFUSED TO ALLOW ME TO TAKE VITALS, REFUSED RISPERDAL AND HYDRALAZINE BUT TOOK DEPAKOTE.
[2016-10-29 16:00] VITALS: BP 120/64
[2016-10-29] MEDS: LORAZEPAM 1 MG TABLET PO PRN (18:21)
[2016-10-29] MEDS: MONTELUKAST SODIUM 10 MG TABLET PO SCH (18:28)
[2016-10-29 20:05] VITALS: BP 141/70
[2016-10-29] MEDS: ATORVASTATIN 20 MG TABLET PO SCH (20:40)
[2016-10-29] MEDS: DOCUSATE SODIUM 100 MG CAPSULE PO SCH (20:52)
[2016-10-30] MEDS: PANTOPRAZOLE SODIUM 40 MG TABLET.DR PO SCH (06:39)
[2016-10-30] MEDS: hydrALAZINE HCL 50 MG TABLET PO SCH ×3 (06:46→22:25)
[2016-10-30 07:44] VITALS: BP 143/73
[2016-10-30] MEDS: CARVEDILOL 12.5 MG TABLET PO SCH ×2 (08:01→17:02)
[2016-10-30] MEDS: FLUTICASONE/VILANTEROL 1 EACH BLST.W.DEV INH SCH (08:02)
[2016-10-30] MEDS: DIVALPROEX SPRINKLE 125 MG CAP.SPRINK PO SCH ×3 (08:03→16:34)
[2016-10-30] MEDS: VENLAFAXINE XR 150 MG CAP.SR.24H PO SCH (08:06)
[2016-10-30] MEDS: FERROUS SULFATE SLOW RELEASE 45 MG (ELEMENTAL) TABEC PO SCH (08:08)
[2016-10-30] MEDS: ASCORBIC ACID 500 MG TABLET PO SCH (08:08)
[2016-10-30] MEDS: AMLODIPINE 5 MG TABLET PO SCH ×2 (08:08→20:01)
[2016-10-30] MEDS: ALLOPURINOL 100 MG TABLET PO SCH (08:09)
[2016-10-30] MEDS: CHOLECALCIFEROL 1,000 UNIT TABLET PO SCH (08:09)
[2016-10-30] MEDS: Z GUARD REMEDY PASTE 57 GM TUBE TOP SCH ×2 (08:10→20:02)
[2016-10-30] MEDS: PRADAXA PO SCH ×2 (08:18→20:02)
[2016-10-30] MEDS: risperiDONE 1 MG TABLET PO SCH ×2 (12:06→20:01)
--- NOTE | 2016-10-30 14:30 | NUR ---
GPS/RN- patient finishing up with lunch, noted attempting to pour grape juice onto the floor, when redirected patient verbalized that "its gasoline I need to pour it out". redirected patient again "I can't drink it so I am pouring it out". patient confused delusional. able to remove beverage from patient before spilling on floor.
--- NOTE | 2016-10-30 15:43 | NUR ---
Patient visible in the hallways sitting in the gerichair, sleeping on and off, but arousable, calm and cooperative, ate 100% each meal, no aggressive behavior noted at this time. Medication compliant , no c/o pain or discomfort noted. Will continue to monitor for safety and needs.
[2016-10-30 16:11] VITALS: BP 97/55
[2016-10-30] MEDS: LORAZEPAM 1 MG TABLET PO PRN (17:00)
[2016-10-30] MEDS: MONTELUKAST SODIUM 10 MG TABLET PO SCH (17:02)
--- NOTE | 2016-10-30 17:12 | NUR ---
Patient is getting restless, agitated, trying to take out the red table, PRN ativan 1mg PO was given at 1700 for increased agitation. Will continue to monitor for safety and behavioral changes.
[2016-10-30] MEDS: DOCUSATE SODIUM 100 MG CAPSULE PO SCH (20:02)
[2016-10-30] MEDS: ATORVASTATIN 20 MG TABLET PO SCH (20:02)
[2016-10-30 20:56] VITALS: BP 116/65
[2016-10-31] MEDS: hydrALAZINE HCL 50 MG TABLET PO SCH ×3 (06:18→22:32)
[2016-10-31] MEDS: PANTOPRAZOLE SODIUM 40 MG TABLET.DR PO SCH (06:18)
[2016-10-31 07:30] VITALS: BP 165/76
[2016-10-31] MEDS: CARVEDILOL 12.5 MG TABLET PO SCH ×2 (08:13→17:08)
[2016-10-31] MEDS: FERROUS SULFATE SLOW RELEASE 45 MG (ELEMENTAL) TABEC PO SCH (08:14)
[2016-10-31] MEDS: VENLAFAXINE XR 150 MG CAP.SR.24H PO SCH (08:14)
[2016-10-31] MEDS: DIVALPROEX SPRINKLE 125 MG CAP.SPRINK PO SCH ×3 (08:14→16:51)
[2016-10-31] MEDS: FLUTICASONE/VILANTEROL 1 EACH BLST.W.DEV INH SCH (08:14)
[2016-10-31] MEDS: CHOLECALCIFEROL 1,000 UNIT TABLET PO SCH (08:16)
[2016-10-31] MEDS: ALLOPURINOL 100 MG TABLET PO SCH (08:17)
[2016-10-31] MEDS: ASCORBIC ACID 500 MG TABLET PO SCH (08:17)
[2016-10-31] MEDS: LORAZEPAM 1 MG TABLET PO PRN ×2 (08:18→15:49)
[2016-10-31] MEDS: AMLODIPINE 5 MG TABLET PO SCH ×2 (08:18→20:16)
[2016-10-31] MEDS: PRADAXA PO SCH ×2 (08:34→20:18)
[2016-10-31] MEDS: Z GUARD REMEDY PASTE 57 GM TUBE TOP SCH ×2 (08:34→20:37)
[2016-10-31] MEDS: risperiDONE 1 MG TABLET PO SCH ×2 (13:42→20:16)
[2016-10-31 16:39] VITALS: BP 128/66
[2016-10-31] MEDS: MONTELUKAST SODIUM 10 MG TABLET PO SCH (17:09)
--- NOTE | 2016-10-31 18:06 | NUR ---
Patient getting restless and agitated trying to climb and get out of bed, labile mood, easily irritable, PRN ativan 1mg PO was given at 1549, reassessed in an hour, patient more calm and redirectable. Visited by , ate 60% dinner. Medication compliant and cooperative. Will continue to monitor for safety and behavioral changes.
[2016-10-31] MEDS: ATORVASTATIN 20 MG TABLET PO SCH (20:16)
[2016-10-31] MEDS: DOCUSATE SODIUM 100 MG CAPSULE PO SCH (20:18)
--- NOTE | 2016-10-31 20:55 | NUR ---
pt received in his room sleeping but easily arousable, unable to assess behavior and mood at this time, but noted to be easily irritable, med compliant, will continue to monitor closely.
[2016-10-31] MEDS ORDERED: risperiDONE 0.5 MG TABLET PO SCH (21:00)
[2016-10-31 21:20] VITALS: BP 126/69
[2016-11-01] MEDS ORDERED: TEMAZEPAM 7.5 MG CAPSULE PO PRN (03:30)
[2016-11-01] MEDS ORDERED: LORAZEPAM 1 MG TABLET PO PRN (03:30)
[2016-11-01] MEDS: PANTOPRAZOLE SODIUM 40 MG TABLET.DR PO SCH (06:24)
[2016-11-01] MEDS: hydrALAZINE HCL 50 MG TABLET PO SCH ×3 (06:24→22:00)
[2016-11-01 08:00] VITALS: BP 146/77
[2016-11-01] MEDS: ALLOPURINOL 100 MG TABLET PO SCH (08:39)
[2016-11-01] MEDS: AMLODIPINE 5 MG TABLET PO SCH ×2 (08:39→20:02)
[2016-11-01] MEDS: FERROUS SULFATE SLOW RELEASE 45 MG (ELEMENTAL) TABEC PO SCH (08:39)
[2016-11-01] MEDS: ASCORBIC ACID 500 MG TABLET PO SCH (08:40)
[2016-11-01] MEDS: CARVEDILOL 12.5 MG TABLET PO SCH ×2 (08:40→17:27)
[2016-11-01] MEDS: CHOLECALCIFEROL 1,000 UNIT TABLET PO SCH (08:40)
[2016-11-01] MEDS: VENLAFAXINE XR 150 MG CAP.SR.24H PO SCH (08:40)
[2016-11-01] MEDS: DIVALPROEX SPRINKLE 125 MG CAP.SPRINK PO SCH ×3 (08:40→16:53)
[2016-11-01] MEDS: Z GUARD REMEDY PASTE 57 GM TUBE TOP SCH ×2 (08:41→20:03)
[2016-11-01] MEDS: PRADAXA PO SCH ×2 (08:42→20:02)
[2016-11-01] MEDS: FLUTICASONE/VILANTEROL 1 EACH BLST.W.DEV INH SCH (08:43)
[2016-11-01] MEDS: risperiDONE 1 MG TABLET PO SCH ×2 (13:05→20:02)
[2016-11-01 16:00] VITALS: BP 104/45
[2016-11-01] MEDS: CLONIDINE-TTS 1 PATCH TD SCH (17:28)
[2016-11-01] MEDS: MONTELUKAST SODIUM 10 MG TABLET PO SCH (17:28)
--- NOTE | 2016-11-01 17:29 | NUR ---
HELD COREG AND CLONIDINE PATCH. BP 104/45, 120/57. CHARGE NURSE AWARE.
[2016-11-01] MEDS: ATORVASTATIN 20 MG TABLET PO SCH (20:01)
[2016-11-01] MEDS: DOCUSATE SODIUM 100 MG CAPSULE PO SCH (20:01)
[2016-11-01 20:14] VITALS: BP 155/76
--- NOTE | 2016-11-01 22:17 | NUR ---
Pt REFUSED 2200 VS AND HYDRALAZINE. SKIN CARE SPECIALIST JUDY O, DR. LÓPEZ RDZ.
[2016-11-02] MEDS: PANTOPRAZOLE SODIUM 40 MG TABLET.DR PO SCH (06:08)
[2016-11-02] MEDS: hydrALAZINE HCL 50 MG TABLET PO SCH ×3 (06:21→21:47)
[2016-11-02 07:30] VITALS: BP 101/59
[2016-11-02] MEDS: CARVEDILOL 12.5 MG TABLET PO SCH ×2 (08:00→17:50)
[2016-11-02] MEDS: AMLODIPINE 5 MG TABLET PO SCH ×2 (09:00→20:18)
[2016-11-02] MEDS: CHOLECALCIFEROL 1,000 UNIT TABLET PO SCH (09:05)
[2016-11-02] MEDS: VENLAFAXINE XR 150 MG CAP.SR.24H PO SCH (09:05)
[2016-11-02] MEDS: ASCORBIC ACID 500 MG TABLET PO SCH (09:05)
[2016-11-02] MEDS: DIVALPROEX SPRINKLE 125 MG CAP.SPRINK PO SCH ×3 (09:05→17:49)
[2016-11-02] MEDS: ALLOPURINOL 100 MG TABLET PO SCH (09:05)
[2016-11-02] MEDS: FERROUS SULFATE SLOW RELEASE 45 MG (ELEMENTAL) TABEC PO SCH (09:07)
[2016-11-02] MEDS: PRADAXA PO SCH ×2 (09:07→20:26)
[2016-11-02] MEDS: Z GUARD REMEDY PASTE 57 GM TUBE TOP SCH ×2 (09:08→20:18)
[2016-11-02] MEDS: FLUTICASONE/VILANTEROL 1 EACH BLST.W.DEV INH SCH (09:27)
--- NOTE | 2016-11-02 11:45 | NUR ---
SPOKE WITH DR BLOOD, HE WOULD LIKE PT DISCHARGED TO MED SURG FLOOR FOR WORSENING WEAKNESS. SPOKE WITH DR DAWN, WHO AGREED. DR DAWN STATES HE WILL DISCONTINUE THE HOLD.
--- NOTE | 2016-11-02 12:15 | NUR ---
SPOKE WITH RONEL BLANDON NP. PT WILL STAY ON MENTAL HEALTH. SPOKE WITH DR DAWN WHO AGREED.
--- NOTE | 2016-11-02 14:30 | NUR ---
1410 PATIENT INFRONT OF NURSES STATION SITTING ON AMITA CHAIR SOUND ASLEEP. B/P CHECKED 75/40, TRIED TO WAKE UP PATIENT BY CALLING HIS NAME BUT NOT RESPONDING VERBALLY. RESPIRATION REHANA AND UNLABORED 16/MIN. BRING PATIENT TO HIS ROOM AND TRANSFER BACK TO BED , STILL NOT RESPONDING VERBALLY. CALLED RAPID RESPONSE TEAM CALLED AND RESPONPONDED. 1420 B/P RECHECKED 109/55 HR- 75/MIN.SKIN PINK, RESP. NO S/S RESPIRATORY DISTRESS ,BS ACCUCHECK-126MG/DL.PATIENT START MOVING HIS ARM , MORE ALERT BUT REMAIN EYE CLOSED. MONITOR BEHAVIOR.
--- NOTE | 2016-11-02 14:57 | NUR ---
1230 PATIENT WILL BE DISCHARGED TODAY TO [facility] VIA AMBULANCE. CALLED REPORT TO LISANDRA SCOTT RN REGARDING PATIENT MEDICAL AND MENBTAL CONDITION -STABLE, MEDICATIONS TO CONTINUE UPON HOSPITAL DISCHARGED. 1440 PATIENT PICKED UP BY AMBULANCE AND TRANSFERRED TO FACILITY MENTIONED ABOVE. PATIENT DENIES SI/HI. NO DEUSIONS/ NO HALLUCINATION NOTED.
[2016-11-02 15:00] VITALS: BP 123/63
[2016-11-02] MEDS: MONTELUKAST SODIUM 10 MG TABLET PO SCH (17:59)
[2016-11-02] MEDS: ATORVASTATIN 20 MG TABLET PO SCH (20:17)
[2016-11-02] MEDS: DOCUSATE SODIUM 100 MG CAPSULE PO SCH (20:17)
[2016-11-02 20:34] VITALS: BP 152/79
[2016-11-02] MEDS ORDERED: risperiDONE 1 MG TABLET PO SCH (21:00)
[2016-11-03] MEDS: hydrALAZINE HCL 50 MG TABLET PO SCH (06:16)
[2016-11-03] MEDS: PANTOPRAZOLE SODIUM 40 MG TABLET.DR PO SCH (06:16)
[2016-11-03 07:30] VITALS: BP 165/77
[2016-11-03 07:38] LABS: BASOPHILS % (AUTO) 0.4 % (0.0-2.0); EOSINOPHILS # (AUTO) 0.3 K/uL (0.0-0.7); EOSINOPHILS % (AUTO) 3.5 % (0.0-7.0); HEMATOCRIT 35.1 % (40-50); HEMOGLOBIN 11.8 G/DL (14.0-18.0); LYMPHOCYTES # (AUTO) 1.6 K/UL (0.8-4.8); MEAN CORPUSCULAR HEMOGLOBIN 29.5 UUG (27.0-31.0); MEAN CORPUSCULAR HGB CONC 34 g/dL (32.0-37.0); MEAN CORPUSCULAR VOLUME 87.7 FL (82.0-92.0); MONOCYTES % (AUTO) 11.4 % (0.0-11.0); NEUTROPHILS # (AUTO) 5.6 K/UL (1.8-8.9); NEUTROPHILS % (AUTO) 65.7 % (38.5-71.5); PLATELET COUNT (AUTO) 140 K/UL (150-450); WHITE BLOOD COUNT (AUTO) 8.5 K/UL (4.0-11.2)
[2016-11-03] MEDS: DIVALPROEX SPRINKLE 125 MG CAP.SPRINK PO SCH (08:16)
[2016-11-03] MEDS: ALLOPURINOL 100 MG TABLET PO SCH (08:17)
[2016-11-03] MEDS: CHOLECALCIFEROL 1,000 UNIT TABLET PO SCH (08:17)
[2016-11-03] MEDS: FERROUS SULFATE SLOW RELEASE 45 MG (ELEMENTAL) TABEC PO SCH (08:17)
[2016-11-03] MEDS: VENLAFAXINE XR 150 MG CAP.SR.24H PO SCH (08:17)
[2016-11-03] MEDS: ASCORBIC ACID 500 MG TABLET PO SCH (08:17)
[2016-11-03] MEDS: PRADAXA PO SCH (08:18)
[2016-11-03] MEDS: CARVEDILOL 12.5 MG TABLET PO SCH (08:18)
[2016-11-03 08:19] VITALS: BP 165/77
[2016-11-03] MEDS: AMLODIPINE 5 MG TABLET PO SCH (08:19)
[2016-11-03] MEDS: FLUTICASONE/VILANTEROL 1 EACH BLST.W.DEV INH SCH (08:20)
[2016-11-03 08:31] LABS: ALANINE AMINOTRANSFERASE 11 U/L (16-63); ALKALINE PHOSPHATASE 83 U/L (50-136); ASPARTATE AMINOTRANSFERASE 21 U/L (15-37); BILIRUBIN,TOTAL 0.4 mg/dL (0.2-1.0); CARBON DIOXIDE 32 mmol/L (21-32); CHLORIDE 102 mmol/L (98-107); CREATININE 2.4 mg/dL (0.6-1.3); GLUCOSE 86 mg/dL (74-106); LIPASE 74 U/L (73-393); MAGNESIUM 2.1 mg/dL (1.8-2.4); PHOSPHOROUS 3.2 mg/dL (2.5-4.9); POTASSIUM 3.5 mmol/L (3.5-5.1); TOTAL PROTEIN, SERUM 6.7 g/dL (6.4-8.2); UREA NITROGEN, BLOOD 57 mg/dL (7-18)
[2016-11-03] MEDS: Z GUARD REMEDY PASTE 57 GM TUBE TOP SCH (08:32)
--- NOTE | 2016-11-03 08:47 | NUR ---
DC Note: Patient will be discharged to [facility] [[address] [place] [address]; ] via ambulance at 11:00 am. Spoke with Renate at the facility who stated they would accept the patient today. Spoke with patients , Noy Galeano [phone] who is aware and agreeable with discharge plans. Patient will follow-up with (Psychiatrist) and (Magnetic Observer) at the facility.
[2016-11-03] MEDS ORDERED: risperiDONE 0.5 MG TABLET PO SCH (09:00)
--- NOTE | 2016-11-03 12:00 | NUR ---
Patient will be discharged today to [facility] via ambulance. 1030 Called to the facility spoke with Damaris Acuna RN and report given regarding patient's diagnosis, medications to continue upon hospital discharged.1210 Patient picked up by ambulance with v/s stable, denies SI/HI. no hallucinations/no dellusion noted.
== END 2016-11-03 12:10 | DRG 885 ==
LOC: ER 13:35 → GPS 16:14
PROVIDERS: ADMIT Psychiatry & Neurology Psychiatry; ATTEND Internal Medicine
DX: F39 Unspecified mood [affective] disorder (principal); N17.0 Acute kidney failure with tubular necrosis; E44.0 Moderate protein-calorie malnutrition; R53.2 Functional quadriplegia; F01.51 Vascular dementia, unspecified severity, with behavioral disturbance; G11.8 Other hereditary ataxias; I48.91 Unspecified atrial fibrillation; F23 Brief psychotic disorder; I13.0 Hypertensive heart and chronic kidney disease with heart failure and stage 1 through stage 4 chronic kidney disease, or unspecified chronic kidney disease; I50.9 Heart failure, unspecified; J44.9 Chronic obstructive pulmonary disease, unspecified; Z68.20 Body mass index [BMI] 20.0-20.9, adult; D63.1 Anemia in chronic kidney disease; E78.5 Hyperlipidemia, unspecified; F41.8 Other specified anxiety disorders; Z95.810 Presence of automatic (implantable) cardiac defibrillator; I25.2 Old myocardial infarction; I73.9 Peripheral vascular disease, unspecified; Z87.891 Personal history of nicotine dependence; Z79.899 Other long term (current) drug therapy; N18.9 Chronic kidney disease, unspecified; Z79.01 Long term (current) use of anticoagulants; K21.9 Gastro-esophageal reflux disease without esophagitis; I25.10 Atherosclerotic heart disease of native coronary artery without angina pectoris; Z95.1 Presence of aortocoronary bypass graft; M10.9 Gout, unspecified; G40.909 Epilepsy, unspecified, not intractable, without status epilepticus; Z91.81 History of falling; Z86.73 Personal history of transient ischemic attack (TIA), and cerebral infarction without residual deficits
CPT/HCPCS: 36415; 80164; 83550; 83690; 83735; 84100; 84156; 84300; 84443; 85025; 93005; 97116; 97161; 97530; A4663; G0480; G0480-TC